=== PATIENT | male | born 1965 | race Caucasian/White ===

== ENCOUNTER 2023-08-19 20:44 | Inpatient (IN) ==
[2023-08-19 22:43] LABS: Albumin Level 2.8 gm/dl (3.4-5.0); Bilirubin,Total 5.6 mg/dl (0.2-1.0); Potassium 3.7 mmol/L (3.5-5.1)
[2023-08-19 22:49] LABS: Basophils # (auto) 0.02 K/uL (0.00-0.20); Basophils % (auto) 0.4 %; Echinocytes 1+; Eosinophils # (auto) 0.03 K/uL (0.00-0.50); Eosinophils % (auto) 0.5 %; Hematocrit (blood only) 34.6 % (42.0-52.0); Hemoglobin 11.7 g/dl (14.0-18.0); Immature Granulocytes # (auto) 0.12 K/uL (0.01-0.20); Immature Granulocytes % (auto) 2.1 %; Lymphocytes # (auto) 0.62 K/uL (1.20-3.40); Lymphocytes % (auto) 10.9 %; Mean Corpuscular Hemoglobin 28.3 pg (25.0-34.0); Mean Corpuscular Hgb Conc 33.8 g/dL (32.0-36.0); Mean Corpuscular Volume 83.8 fL (80.0-100.0); Mean Platelet Volume 10.5 fL (9.4-12.4); Monocytes # (auto) 0.24 K/uL (0.11-0.59); Monocytes % (auto) 4.2 %; Neutrophils # (auto) 4.66 K/uL (1.40-6.50); Neutrophils % (auto) 81.9 %; Platelet Count 124 K/uL (130-400); RDW Coefficient of Variation 14.6 % (11.5-14.5); Red Blood Count 4.13 M/uL (4.70-6.10); White Blood Count 5.69 K/ul (4.8-10.8)
[2023-08-19 23:04] LABS: Albumin Globulin Ratio 0.7 (0.9-2); BUN Creatinine Ratio 21.2 (10-20); Creatinine Clr Calc Pharmacy 12.1 ml/min; Est GFR (African American) 12.3 ml/min; Est GFR (Non-African American) 10.7 ml/min; Globulin 4.3 gm/dl (2.5-4.0); Total Protein 7.1 gm/dl (6.0-8.3)
--- NOTE | 2023-08-19 23:11 | Emergency Department Note ---
Impression & Plan DANI (acute kidney injury), Cirrhosis, Elevated bilirubin, Weakness ED Provider Note NAME: DEVONTE GANNON AGE: 58 SEX: M : 1965 ARRIVES VIA: Ambulance INFORMANT: Patient ED PROVIDER(S): Francisco Mckinnon DO CHIEF COMPLAINT: weakness HPI: Patient is a 58-year-old male who presents the ER for feeling weak and rundown. He notes he has not been eating much and has been trying to drink but has not felt like he can. He normally drinks about 15 beers a day. He has not been drinking any alcohol for the past 3 to 4 weeks. He denies any headache or change in vision. No chest pain or shortness of breath. No belly pain. He does admit to some swelling in his lower feet and pain in the feet. Denies any dysuria, urgency, or frequency. No other exacerbating or remitting factors. Family present at bedside notes that he is very weak and rundown. He has stopped drinking alcohol. ADDITIONAL HISTORY OBTAINED: Per HPI Chronic Medical/Social Conditions Affecting Care: Per HPI PAST MEDICAL HISTORY:See Below PAST SURGICAL HISTORY:See Below FAMILY HISTORY:See Below SOCIAL HISTORY:See Below HOME MEDICATIONS:See Below ALLERGIES:See Below VITALS:See Below PHYSICAL EXAMINATION: GENERAL: Sitting up in bed, alert, well appearing, well nourished, no distress, non-toxic EYE EXAM: Scleral icterus normal conjunctiva. PERRL and EOM's grossly intact. OROPHARYNX: no exudate, no erythema, lips, buccal mucosa, and tongue normal and mucous membranes are moist NECK: supple, no nuchal rigidity, no adenopathy, non-tender LUNGS: Clear to auscultation. Normal chest wall mechanics HEART: no murmurs, S1 normal and S2 normal ABDOMEN: abdomen soft, non-tender, normo-active bowel sounds, no masses, no rebound or guarding. UPPER EXTREMITIES: upper extremities are grossly normal. LOWER EXTREMITIES: No pitting edema. NEURO EXAM: Normal sensorium, cranial nerves II-XII grossly intact, normal speech, no gross weakness of arms, no gross weakness of legs. MEDICAL DECISION MAKING: Patient is a 58-year-old male who presents ER for above-stated complaint. IV was established blood work was obtained. External records reviewed. Labs show no significant leukocytosis and mild anemia 11.7. Platelets were slightly low at 124 likely secondary to the alcohol abuse. BMP with a creatinine 5.3 up from baseline of 1. Magnesium was elevated at 3.7. T. bili up at 5.6. AST significantly elevated at nearly 200. Troponin mildly elevated at 24. Lipase at 99. Albumin was low at 2.8. UA was without infection. Patient was given 2 L of IV fluids. Systolic blood pressures trended up from the 90s to low 100s. Do favor a large component of the DANI secondary to prerenal and dehydration. Patient was covered with cefepime to be on the safe side. He has no belly pain. CT of the head and abdomen pelvis were obtained and were unremarkable. Chest x-ray with likely linear atelectasis in the left lower lobe and subtle patchy infiltrate in the right lower lobe. Patient was covered with IV cefepime. Updated bedside and admitted to the hospital for further work-up. Patient initially declined admission but as family members are at bedside refused to take him home he was eventually agreeable to staying. External Records Reviewed: Hernia repair done in [address] Tobias Consults/Care Managements Discussions: Per [facility] Triage Nursing notes reviewed. Limited review of prior medical records performed Vital Signs: reviewed and remarkable for hypotension Differential diagnosis: Infection, dehydration, metabolic abnormality, hypo/hyperglycemia, electrolyte disturbance, anemia, hypoxia, cardiac sources, intracerebral event, toxicologic, neurologic, as well as other pathologies. ER treatment provided: See below Diagnostics interpreted by me include EKG and cardiac monitoring as listed below: -Cardiac Monitoring: An order was placed for continuous cardiac monitoring. The monitor shows a rate of 62 with sinus rhythm. -ECG: Sinus rhythm rate of 79 Normal axis No PVCs QTc 529 -Laboratory studies:Interpreted by me as stated above in MDM and shown below. Imaging studies: Xrays: As interpreted by me: Portable AP upright 1 view of the chest shows atelectasis in the left lower lobe and subtle patchy infiltrates in the right lower lobe CTs show: CT of the head and abdomen pelvis showed no acute pathology Procedures:none Critical Care: I have personally spent 31 minutes of critical care time in the direct management of this patient. This includes bedside care, interpretation of diagnostic studies, and testing, discussion with consultants, patient, and family members, and other required patient management activities. This 31 minutes is in excess of all separately billable procedures. Past Med/Surg History Medical History Anxiety Hypothyroid Low back pain ONGOING SINCE A FALL (REMOTE HX) Ulcerative colitis Surgical History History of colonoscopy History of hand surgery FINGER AMPUTATED D/T INJURY , LEFT INDEX Family History Mother Family history of diabetes mellitus Social History Smoking Status: Current every day smoker Do You Dip or Chew Tobacco: No; Hx Alcohol Use: Yes Alcohol type: beer and hard liquor Preferred Language: Kyrgyz Communication Ability: Effective Winch Operator Required: No Beliefs That Will Affect Care: None marital status: Current Living Situation: Spouse and Family Current Living Situation Comment: AND SON Feels Safe at Home: Yes Assistive Devices: Denture - Upper, Denture - Lower and Hearing Aid - Bilateral Allergies Allergies Allergy/AdvReac Type Severity Reaction Status Date / Time amoxicillin Allergy Intermediate Rash Verified 08/08/23 16:57 Home Meds Home Medications Medication Instructions Recorded Confirmed sertraline 100 mg tablet 150 mg PO QAM 12/09/20 08/19/23 balsalazide 750 mg capsule 2,250 mg PO TID 08/08/23 08/19/23 levothyroxine 75 mcg tablet 75 mcg PO DAILYBB 08/08/23 08/19/23 loperamide 2 mg capsule 2 mg PO TID PRN Diarrhea 08/08/23 08/19/23 naproxen sodium 220 mg tablet 440 mg PO BID PRN Pain 08/08/23 08/19/23 (Aleve) trazodone 100 mg tablet 100 mg PO HS 08/08/23 08/19/23 Results & Data (ED) Vital Signs Vital Signs - 24 hr 08/19/23 20:36 08/19/23 20:55 08/19/23 21:00 Temperature 35.7 C L Temperature Source Rectal Pulse Rate 64 64 65 Pulse Rate from SpO2 Sensor 64 65 Respiratory Rate 16 16 17 Respiratory Effort / Characteristics Non-Labored Respiratory Depth Normal Blood Pressure 90/60 L Blood Pressure Mean 70 Pulse Oximetry 95 94 95 Oxygen Delivery Method Room Air Sepsis Recent Fever Within 48 Hours No Sepsis New/Unexplained Change in Mental Status Yes Sepsis Action Taken by Nursing Physician Notified 08/19/23 21:04 08/19/23 21:10 08/19/23 21:11 Temperature Temperature Source Pulse Rate 64 64 Pulse Rate from SpO2 Sensor 63 Respiratory Rate 15 Respiratory Effort / Characteristics Respiratory Depth Blood Pressure Blood Pressure Mean Pulse Oximetry 94 95 Oxygen Delivery Method Room Air Sepsis Recent Fever Within 48 Hours Sepsis New/Unexplained Change in Mental Status Sepsis Action Taken by Nursing 08/19/23 21:20 08/19/23 21:30 08/19/23 21:40 Temperature Temperature Source Pulse Rate 63 64 65 Pulse Rate from SpO2 Sensor 63 64 Respiratory Rate 19 18 23 Respiratory Effort / Characteristics Respiratory Depth Blood Pressure Blood Pressure Mean Pulse Oximetry 95 94 Oxygen Delivery Method Sepsis Recent Fever Within 48 Hours Sepsis New/Unexplained Change in Mental Status Sepsis Action Taken by Nursing 08/19/23 21:46 08/19/23 21:46 08/19/23 21:50 Temperature Temperature Source Pulse Rate 64 64 Pulse Rate from SpO2 Sensor Respiratory Rate 21 22 Respiratory Effort / Characteristics Respiratory Depth Blood Pressure 98/52 L Blood Pressure Mean 59 Pulse Oximetry Oxygen Delivery Method Sepsis Recent Fever Within 48 Hours Sepsis New/Unexplained Change in Mental Status Sepsis Action Taken by Nursing 08/19/23 22:00 08/19/23 22:00 08/19/23 22:10 Temperature Temperature Source Pulse Rate 64 65 Pulse Rate from SpO2 Sensor Respiratory Rate 18 20 Respiratory Effort / Characteristics Respiratory Depth Blood Pressure 98/53 L Blood Pressure Mean 61 Pulse Oximetry Oxygen Delivery Method Sepsis Recent Fever Within 48 Hours Sepsis New/Unexplained Change in Mental Status Sepsis Action Taken by Nursing 08/19/23 22:20 08/19/23 22:30 08/19/23 22:30 Temperature Temperature Source Pulse Rate 64 65 Pulse Rate from SpO2 Sensor Respiratory Rate 26 H 26 H Respiratory Effort / Characteristics Respiratory Depth Blood Pressure 96/56 L Blood Pressure Mean 64 Pulse Oximetry Oxygen Delivery Method Sepsis Recent Fever Within 48 Hours Sepsis New/Unexplained Change in Mental Status Sepsis Action Taken by Nursing 08/19/23 22:40 08/19/23 22:50 08/19/23 23:00 Temperature Temperature Source Pulse Rate 65 65 Pulse Rate from SpO2 Sensor Respiratory Rate 26 H 17 Respiratory Effort / Characteristics Respiratory Depth Blood Pressure 95/62 L Blood Pressure Mean 67 Pulse Oximetry Oxygen Delivery Method Sepsis Recent Fever Within 48 Hours Sepsis New/Unexplained Change in Mental Status Sepsis Action Taken by Nursing 08/19/23 23:00 08/19/23 23:10 08/19/23 23:20 Temperature Temperature Source Pulse Rate 65 64 65 Pulse Rate from SpO2 Sensor 65 Respiratory Rate 22 21 17 Respiratory Effort / Characteristics Respiratory Depth Blood Pressure Blood Pressure Mean Pulse Oximetry 93 Oxygen Delivery Method Sepsis Recent Fever Within 48 Hours Sepsis New/Unexplained Change in Mental Status Sepsis Action Taken by Nursing 08/19/23 23:30 08/19/23 23:30 08/19/23 23:50 Temperature Temperature Source Pulse Rate 65 74 Pulse Rate from SpO2 Sensor 65 Respiratory Rate 22 13 Respiratory Effort / Characteristics Respiratory Depth Blood Pressure 94/55 L Blood Pressure Mean 59 Pulse Oximetry 94 Oxygen Delivery Method Sepsis Recent Fever Within 48 Hours Sepsis New/Unexplained Change in Mental Status Sepsis Action Taken by Nursing 08/20/23 00:00 08/20/23 00:10 08/20/23 00:20 Temperature Temperature Source Pulse Rate 67 71 71 Pulse Rate from SpO2 Sensor 67 71 71 Respiratory Rate 21 21 15 Respiratory Effort / Characteristics Respiratory Depth Blood Pressure Blood Pressure Mean Pulse Oximetry 93 93 92 Oxygen Delivery Method Sepsis Recent Fever Within 48 Hours Sepsis New/Unexplained Change in Mental Status Sepsis Action Taken by Nursing 08/20/23 00:30 08/20/23 00:38 08/20/23 00:40 Temperature 35.8 C L Temperature Source Rectal Pulse Rate 72 75 Pulse Rate from SpO2 Sensor 72 75 Respiratory Rate 16 25 H Respiratory Effort / Characteristics Respiratory Depth Blood Pressure Blood Pressure Mean Pulse Oximetry 92 91 Oxygen Delivery Method Sepsis Recent Fever Within 48 Hours Sepsis New/Unexplained Change in Mental Status Sepsis Action Taken by Nursing 08/20/23 00:50 08/20/23 01:00 08/20/23 01:05 Temperature Temperature Source Pulse Rate 71 74 75 Pulse Rate from SpO2 Sensor 72 74 Respiratory Rate 15 18 Respiratory Effort / Characteristics Respiratory Depth Blood Pressure Blood Pressure Mean Pulse Oximetry 91 91 Oxygen Delivery Method Sepsis Recent Fever Within 48 Hours Sepsis New/Unexplained Change in Mental Status Sepsis Action Taken by Nursing 08/20/23 01:10 08/20/23 01:20 08/20/23 01:30 Temperature Temperature Source Pulse Rate 76 75 75 Pulse Rate from SpO2 Sensor 76 75 75 Respiratory Rate 17 15 22 Respiratory Effort / Characteristics Respiratory Depth Blood Pressure Blood Pressure Mean Pulse Oximetry 91 90 91 Oxygen Delivery Method Sepsis Recent Fever Within 48 Hours Sepsis New/Unexplained Change in Mental Status Sepsis Action Taken by Nursing 08/20/23 01:40 08/20/23 01:48 08/20/23 01:48 Temperature Temperature Source Pulse Rate 73 76 Pulse Rate from SpO2 Sensor 73 73 Respiratory Rate 16 17 Respiratory Effort / Characteristics Respiratory Depth Blood Pressure 109/61 Blood Pressure Mean 71 Pulse Oximetry 93 92 Oxygen Delivery Method Sepsis Recent Fever Within 48 Hours Sepsis New/Unexplained Change in Mental Status Sepsis Action Taken by Nursing 08/20/23 01:50 08/20/23 02:00 08/20/23 02:00 Temperature Temperature Source Pulse Rate 76 76 Pulse Rate from SpO2 Sensor 76 76 Respiratory Rate 20 22 Respiratory Effort / Characteristics Respiratory Depth Blood Pressure 100/56 L Blood Pressure Mean 60 Pulse Oximetry 92 92 Oxygen Delivery Method Sepsis Recent Fever Within 48 Hours Sepsis New/Unexplained Change in Mental Status Sepsis Action Taken by Nursing 08/20/23 02:31 Temperature 36.4 C Temperature Source Rectal Pulse Rate Pulse Rate from SpO2 Sensor Respiratory Rate Respiratory Effort / Characteristics Respiratory Depth Blood Pressure Blood Pressure Mean Pulse Oximetry Oxygen Delivery Method Sepsis Recent Fever Within 48 Hours Sepsis New/Unexplained Change in Mental Status Sepsis Action Taken by Nursing Laboratory Data 08/19/23 21:15 08/19/23 21:15 Lab Results 08/19/23 08/19/23 Range/Units 21:15 21:40 WBC 5.69 (4.8-10.8) K/ul RBC 4.13 L (4.70-6.10) M/uL Hgb 11.7 L (14.0-18.0) g/dl Hct 34.6 L (42.0-52.0) % MCV 83.8 (80.0-100.0) fL MCH 28.3 (25.0-34.0) pg MCHC 33.8 (32.0-36.0) g/dL RDW Std Deviation 45.0 (36.4-46.3) fL RDW Coeff of Bo 14.6 H (11.5-14.5) % Plt Count 124 L (130-400) K/uL MPV 10.5 (9.4-12.4) fL Immature Gran % (Auto) 2.1 % Neut % (Auto) 81.9 % Lymph % (Auto) 10.9 % [place] % (Auto) 4.2 % Eos % (Auto) 0.5 % Baso % (Auto) 0.4 % Neut # (Auto) 4.66 (1.40-6.50) K/uL Lymph # (Auto) 0.62 L (1.20-3.40) K/uL [place] # (Auto) 0.24 (0.11-0.59) K/uL Eos # (Auto) 0.03 (0.00-0.50) K/uL Baso # (Auto) 0.02 (0.00-0.20) K/uL Immature Gran # (Auto) 0.12 (0.01-0.20) K/uL Echinocytes 1+ Sodium 133 L (136-145) mmol/L Potassium 3.7 (3.5-5.1) mmol/L Chloride 90 L (98-107) mmol/L Carbon Dioxide 28 (21-32) mmol/L Anion Gap 15 H (3-11) BUN 114 H (6-23) mg/dl Creatinine 5.38 H* (0.6-1.4) mg/dl Est Cr Clr Drug Dosing 12.1 ml/min Est GFR ( Amer) 12.3 ml/min Est GFR (Non-Af Amer) 10.7 ml/min BUN/Creatinine Ratio 21.2 H (10-20) Glucose 99 (70-99(Fasting)) mg/dl Calcium 8.0 L (8.6-10.3) mg/dl Magnesium 3.7 H (1.7-2.4) mg/dl Total Bilirubin 5.6 H (0.2-1.0) mg/dl AST 186 H (13-39) U/L ALT 26 (7-52) U/L Alkaline Phosphatase 303 H (34-104) U/L Troponin I High Sens 24.8 H (0-20) pg/ml Total Protein 7.1 (6.0-8.3) gm/dl Albumin 2.8 L (3.4-5.0) gm/dl Globulin 4.3 H (2.5-4.0) gm/dl Albumin/Globulin Ratio 0.7 L (0.9-2) Lipase 99 H (11-82) U/L Urine Color Dark Yellow Urine Appearance Cloudy A (Clear) Urine pH 5.0 (4.5-7.5) Ur Specific Saxis 1.017 (1.000-1.030) Urine Protein Trace H (Negative) Urine Glucose (UA) Negative (Negative) Urine Ketones Negative (Negative) Urine Blood Negative (Negative) Urine Nitrite Positive A (Negative) Urine Bilirubin 1+ H (Negative) Urine Urobilinogen Negative (Negative) Ur Leukocyte Esterase Negative (Negative) Urine WBC (Auto) 1-5 (0-5) /hpf Urine RBC (Auto) 0-4 (0-4) /hpf U Hyaline Cast (Auto) 1-5 (0-5) /lpf U Epithel Cells (Auto) 0-5 (0-5) /lpf Urine Bacteria (Auto) 1+ H (Negative) Urine Mucus Present A (None Prsent) Urine Yeast Not Reportable Administered Medications Sodium Chloride (Nss) 1,000 mls @ 999 mls/hr IV .Q1H1M ONE Stop: 08/20/23 03:16 Last Admin: 08/20/23 02:37 Dose: 999 mls/hr Documented By: BRYCE Discontinued Medications Sodium Chloride (Nss) 1,000 mls @ 999 mls/hr IV .Q1H1M AMRITA Stop: 08/20/23 01:15 Last Infusion: 08/20/23 02:11 Dose: Infused Documented By: Admin: 08/20/23 00:38 Dose: 999 mls/hr Documented By: Infusion: 08/20/23 00:38 Dose: Infused Documented By: Admin: 08/19/23 23:41 Dose: 999 mls/hr Documented By: BRYCE Thiamine HCl 100 mg/ Syringe 10 mls @ 2 mls/min IV NOW STA Stop: 08/19/23 23:16 Last Admin: 08/20/23 00:05 Dose: 2 mls/min Documented By: BRYCE Folic Acid 1 mg/ Syringe 10 mls @ 5 mls/min IV NOW STA Stop: 08/19/23 23:13 Last Admin: 08/20/23 00:04 Dose: 5 mls/min Documented By: BRYCE Cefepime HCl (Maxipime) 2,000 mg in 20 mls @ 5 mls/min IV NOW STA; Protocol Stop: 08/20/23 02:21 Last Admin: 08/20/23 02:47 Dose: 5 mls/min Documented By: BRYCE Imaging Data Radiologist's Impression: Abdomen/Pelvis CT 08/19/23 23:08 Exam(s): CT ABDOMEN + PELVIS Without Contrast EXAM: CT Abdomen and Pelvis Without Intravenous Contrast CLINICAL HISTORY: Reason for exam: weak. TECHNIQUE: Axial computed tomography images of the abdomen and pelvis without intravenous contrast. Automated exposure control was utilized for the study. A dose lowering technique was utilized adhering to the principles of ALARA. COMPARISON: No relevant prior studies available. FINDINGS: Lung bases: Atelectasis/scarring at the lung bases. ABDOMEN: Liver: Core liver hepatic cirrhosis. Abdominal ascites. Splenomegaly measuring up to 14.7 cm. Gallbladder and bile ducts: Unremarkable. No calcified stones. No ductal dilation. Pancreas: Unremarkable. No ductal dilation. Spleen: See above. Adrenals: Unremarkable. No mass. Kidneys and ureters: Unremarkable. No hydronephrosis or nephrolithiasis. Stomach and bowel: Diverticulosis, without acute diverticulitis. No bowel obstruction. No free air. PELVIS: Appendix: No findings to suggest acute appendicitis. Bladder: Unremarkable. No stones. Reproductive: Unremarkable as visualized. ABDOMEN and PELVIS: Intraperitoneal space: See above. Bones/joints: Degenerative changes of the spine. No acute fracture. No dislocation. Soft tissues: Unremarkable. Vasculature: Atherosclerotic changes of the aorta. No abdominal aortic aneurysm. Lymph nodes: Unremarkable. No enlarged lymph nodes. IMPRESSION: 1. No hydronephrosis or nephrolithiasis. 2. Core liver hepatic cirrhosis. Abdominal ascites. Splenomegaly measuring up to 14.7 cm. 3. Diverticulosis, without acute diverticulitis. No bowel obstruction. No free air. Electronically signed by: Cruz Mueller MD 08/20/23 02:[address] 08/19/23 23:12 Exam(s): CT HEAD Without Contrast EXAM: CT Head Without Intravenous Contrast CLINICAL HISTORY: Reason for exam: weak. TECHNIQUE: Axial computed tomography images of the head/brain without intravenous contrast. Automated exposure control was utilized for the study. A dose lowering technique was utilized adhering to the principles of ALARA. COMPARISON: No relevant prior studies available. FINDINGS: No acute intracranial hemorrhage. No midline shift or mass effect. The territorial meraz-white matter differentiation is maintained throughout. Age-related cerebral volume loss. Periventricular and subcortical white matter hypoattenuation, consistent with chronic microangiopathy. The visualized orbits appear grossly unremarkable. The calvarium is intact. The visualized paranasal sinuses and mastoid air cells are grossly clear. IMPRESSION: No acute intracranial hemorrhage, midline shift, or mass effect. Electronically signed by: Cruz Mueller MD 08/20/23 00:57 AM Discharge Plan Visit Data Chief Complaint: Altered Mental Status ED Provider: Francisco Mckinnon Discharge Problem: DANI (acute kidney injury), Cirrhosis, Elevated bilirubin, Weakness Forms Stand Alone Forms: [facility] Prescriptions Prescriptions: No Action sertraline 100 mg tablet 150 mg PO QAM loperamide 2 mg capsule 2 mg PO TID PRN (Reason: Diarrhea) levothyroxine 75 mcg tablet 75 mcg PO DAILYBB trazodone 100 mg tablet 100 mg PO HS naproxen sodium [Aleve] 220 mg Tablet 440 mg PO BID PRN (Reason: Pain) balsalazide 750 mg capsule 2,250 mg PO TID Referrals Referrals: Bernard Rodriguez MD [Primary Care Provider] - Discharge Problem: Cirrhosis Qualifiers: Hepatic cirrhosis type: unspecified hepatic cirrhosis Ascites presence: u nspecified Qualified Code(s): K74.60 - Unspecified cirrhosis of liver
[2023-08-19] MEDS ORDERED: THIAMINE HCL 100 MG in SYRINGE 9 ML IV STA (23:12)
[2023-08-19] MEDS ORDERED: FOLIC ACID 1 MG in SYRINGE 9.8 ML IV STA (23:12)
[2023-08-19 23:24] LABS: Appearance Urine Cloudy (Clear); Blood Urine Negative (Negative); Color Urine Dark Yellow; Epithelial Cell Urine Auto 0-5 /lpf (0-5); Glucose Urine UA Negative (Negative); Ketones Urine Negative (Negative); Leukocyte Esterase Urine Negative (Negative); Nitrite Urine Positive (Negative); Protein Urine Trace (Negative); Specific Gravity Urine 1.017 (1.000-1.030); Urobilinogen Urine Negative (Negative)
[2023-08-19 23:30] LABS: Bilirubin Urine 1+ (Negative)
[2023-08-19] MEDS: SODIUM CHLORIDE 0.9% 1,000 ML IV SCH (23:41)
[2023-08-19 23:53] LABS: Bacteria Urine Automated 1+ (Negative); Mucus Urine Present (None Prsent); RBC Urine Automated 0-4 /hpf (0-4)
[2023-08-20 00:23] LABS: Magnesium 3.7 mg/dl (1.7-2.4)
[2023-08-20] MEDS: SODIUM CHLORIDE 0.9% 1,000 ML IV SCH (00:38)
[2023-08-20 00:42] LABS: Troponin I High Sensitivity 24.8 pg/ml (0-20)
--- NOTE | 2023-08-20 00:58 | CT Scan Report ---
Exam(s): CT HEAD Without Contrast EXAM: CT Head Without Intravenous Contrast CLINICAL HISTORY: Reason for exam: weak. TECHNIQUE: Axial computed tomography images of the head/brain without intravenous contrast. Automated exposure control was utilized for the study. A dose lowering technique was utilized adhering to the principles of ALARA. COMPARISON: No relevant prior studies available. FINDINGS: No acute intracranial hemorrhage. No midline shift or mass effect. The territorial meraz-white matter differentiation is maintained throughout. Age-related cerebral volume loss. Periventricular and subcortical white matter hypoattenuation, consistent with chronic microangiopathy. The visualized orbits appear grossly unremarkable. The calvarium is intact. The visualized paranasal sinuses and mastoid air cells are grossly clear. IMPRESSION: No acute intracranial hemorrhage, midline shift, or mass effect. Electronically signed by: Cruz Mueller MD 08/20/23 00:57 AM
--- NOTE | 2023-08-20 02:01 | CT Scan Report ---
Exam(s): CT ABDOMEN + PELVIS Without Contrast EXAM: CT Abdomen and Pelvis Without Intravenous Contrast CLINICAL HISTORY: Reason for exam: weak. TECHNIQUE: Axial computed tomography images of the abdomen and pelvis without intravenous contrast. Automated exposure control was utilized for the study. A dose lowering technique was utilized adhering to the principles of ALARA. COMPARISON: No relevant prior studies available. FINDINGS: Lung bases: Atelectasis/scarring at the lung bases. ABDOMEN: Liver: Core liver hepatic cirrhosis. Abdominal ascites. Splenomegaly measuring up to 14.7 cm. Gallbladder and bile ducts: Unremarkable. No calcified stones. No ductal dilation. Pancreas: Unremarkable. No ductal dilation. Spleen: See above. Adrenals: Unremarkable. No mass. Kidneys and ureters: Unremarkable. No hydronephrosis or nephrolithiasis. Stomach and bowel: Diverticulosis, without acute diverticulitis. No bowel obstruction. No free air. PELVIS: Appendix: No findings to suggest acute appendicitis. Bladder: Unremarkable. No stones. Reproductive: Unremarkable as visualized. ABDOMEN and PELVIS: Intraperitoneal space: See above. Bones/joints: Degenerative changes of the spine. No acute fracture. No dislocation. Soft tissues: Unremarkable. Vasculature: Atherosclerotic changes of the aorta. No abdominal aortic aneurysm. Lymph nodes: Unremarkable. No enlarged lymph nodes. IMPRESSION: 1. No hydronephrosis or nephrolithiasis. 2. Core liver hepatic cirrhosis. Abdominal ascites. Splenomegaly measuring up to 14.7 cm. 3. Diverticulosis, without acute diverticulitis. No bowel obstruction. No free air. Electronically signed by: Cruz Mueller MD 08/20/23 02:00 AM
[2023-08-20] MEDS ORDERED: SODIUM CHLORIDE 0.9% 1,000 ML IV ONE (02:16)
[2023-08-20] MEDS ORDERED: CEFEPIME 2,000 MG/20 ML VIAL IV STA (02:18)
--- NOTE | 2023-08-20 05:39 | History & Physical Report ---
Date of Service August 20, 2023 Assessment & Plan (1) DANI (acute kidney injury): Plan: 58-year-old male with past med significant for ulcerative pancolitis, Dupuytren's contracture of hand, depression, alcohol abuse presents with weakness, poor appetite and found to DANI and elevated LFTs. DANI Presented with creatinine 5.3 Creatinine was 1.0 on August 08, [address] abdomen pelvis Bladder scan Gentle fluids Repeat labs Consult nephrology Elevated LFTs Total bilirubin 5.6 AST 186, ALT 26, alkaline phos was 303 Alcoholism Most likely alcoholic hepatitis We will follow CT abdomen pelvis GI consulted Follow repeat labs Alcoholism Patient states he drinks 10-12 beers daily but has not drank in the last [address] on alcohol withdrawal protocol with gabapentin and IV Ativan as needed IV thiamine IV folic acid Closely monitor for withdrawal symptoms Mild elevation troponin Mostly from renal dysfunction Follow serial enzymes Possible UTI Rocephin Follow cultures History of ulcerative colitis Continue home med Hypothyroidism On Synthyroid Follow-up TSH Depression Zoloft and trazodone We will hold trazodone and Zoloft for now for QT prolongation Prolonged QTc Avoid QT prolonging drugs Follow repeat EKG Mild anemia and mild thrombocytopenia possible from liver disease and alcoholism We will check stool for Hemoccult We will follow labs. DVT prophylaxis Heparin subcu Monitor platelets Disposition Telemetry floor Full code History of Present Illness Chief Complaint: Weakness and found to have DANI and elevated LFTs Primary Care Provider: Bernard Rodriguez MD 58-year-old male with past med significant for ulcerative pancolitis, Dupuytren's contracture of hand, depression, alcohol abuse presents with weakness, poor appetite and found to DANI and elevated LFTs. Patient states he used to drink alcohol 10-12 beers daily but he did not drink for 10 days. Says he lives with his family. Denies any headache. Vision is okay. No headaches. No runny nose. Has some sore throat. Has mild cough. Denies fevers. No chest pain. No shortness of breath. No nausea. Has mild abdominal discomfort. Normal bowel and bladder movements. States is ambulating okay at home. Hemodynamics are stable. Past medical history. As mentioned above Past surgical history. Colonoscopy. Laparoscopic inguinal hernia repair Social history. . Quit smoking 20 years ago. Used to smoke heavily 2 packs a day. Alcohol drinks 10-12 beers daily but states did not drink in last 10 days. No drug use. Family history. Son has ulcerative colitis Allergies Allergy/AdvReac Type Severity Reaction Status Date / Time amoxicillin Allergy Intermediate Rash Verified 08/08/23 16:57 Home Medications Medication Instructions Recorded Confirmed Type sertraline 100 mg tablet 150 mg PO QAM 12/09/20 08/19/23 History balsalazide 750 mg capsule 2,250 mg PO TID 08/08/23 08/19/23 History levothyroxine 75 mcg tablet 75 mcg PO DAILYBB 08/08/23 08/19/23 History loperamide 2 mg capsule 2 mg PO TID PRN Diarrhea 08/08/23 08/19/23 History naproxen sodium 220 mg tablet 440 mg PO BID PRN Pain 08/08/23 08/19/23 History (Aleve) trazodone 100 mg tablet 100 mg PO HS 08/08/23 08/19/23 History Past Med/Surg History Medical History Anxiety Hypothyroid Low back pain ONGOING SINCE A FALL (REMOTE HX) Ulcerative colitis Surgical History History of colonoscopy History of hand surgery FINGER AMPUTATED D/T INJURY , LEFT INDEX Family History Mother Family history of diabetes mellitus Social History Smoking Status: Current every day smoker Do You Dip or Chew Tobacco: No; Hx Alcohol Use: Yes Alcohol type: beer and hard liquor Preferred Language: Martiniquais Communication Ability: Effective Freight Team Associate Required: No Beliefs That Will Affect Care: None marital status: Current Living Situation: Spouse and Family Current Living Situation Comment: AND SON Feels Safe at Home: Yes Assistive Devices: Denture - Upper, Denture - Lower and Hearing Aid - Bilateral Review of Systems Review of Systems: All systems reviewed & are unremarkable except as noted in HPI & below Physical Exam Physical Exam: General- Not in distress. Head- atraumatic Eyes- PERRL. ENT- oropharynx clear Neck- supple, no JVD. Lungs- clear to auscultation no wheezing or crackles. Heart- regular rhythm; no murmur, no gallop. Abdomen- normal bowel sounds, soft, nontender, mild distension. Extremities- no pretibial edema, no erythema seen. Neuro- alert, oriented x 3; PERRL, no facial palsy; no dysarthria; moves extremities. Skin- warm & dry Results & Data Results & Data Vital Signs (Past 12 Hours) Vital Signs Temp Pulse Pulse Resp BP Pulse Ox O2 Del Method 08/20/23 04:00 72 17 91 Room Air 08/20/23 02:31 36.4 C 08/20/23 02:00 76 22 92 08/20/23 02:00 100/56 L 08/20/23 01:50 76 20 92 08/20/23 01:48 76 17 92 08/20/23 01:48 109/61 08/20/23 01:40 73 16 93 08/20/23 01:30 75 22 91 08/20/23 01:20 75 15 90 08/20/23 01:10 76 17 91 08/20/23 01:05 75 08/20/23 01:00 74 18 91 08/20/23 00:50 71 15 91 08/20/23 00:40 75 25 H 91 08/20/23 00:38 35.8 C L 08/20/23 00:30 72 16 92 08/20/23 00:20 71 15 92 08/20/23 00:10 71 21 93 08/20/23 00:00 67 21 93 08/19/23 23:50 74 13 08/19/23 23:30 65 22 94 08/19/23 23:30 94/55 L 08/19/23 23:20 65 17 93 08/19/23 23:10 64 21 08/19/23 23:00 65 22 08/19/23 23:00 95/62 L 08/19/23 22:50 65 17 08/19/23 22:40 65 26 H 08/19/23 22:30 65 26 H 08/19/23 22:30 96/56 L 08/19/23 22:20 64 26 H 08/19/23 22:10 65 20 08/19/23 22:00 64 18 08/19/23 22:00 98/53 L 08/19/23 21:50 64 22 11/14/23 21:46 98/52 L 08/19/23 21:46 64 21 08/19/23 21:40 65 23 08/19/23 21:30 64 18 94 08/19/23 21:20 63 19 95 08/19/23 21:11 95 Room Air 08/19/23 21:10 64 15 94 08/19/23 21:04 64 08/19/23 21:00 65 17 95 08/19/23 20:55 64 16 94 08/19/23 20:36 35.7 C L 64 16 90/60 L 95 Room Air Diagnostic Findings Laboratory Results WBC 5.69 K/ul (4.8-10.8) 08/19/23 21:15 RBC 4.13 M/uL (4.70-6.10) L 08/19/23 21:15 Hgb 11.7 g/dl (14.0-18.0) L 08/19/23 21:15 Hct 34.6 % (42.0-52.0) L 08/19/23 21:15 MCV 83.8 fL (80.0-100.0) 08/19/23 21:15 MCH 28.3 pg (25.0-34.0) 08/19/23 21:15 MCHC 33.8 g/dL (32.0-36.0) 08/19/23 21:15 RDW Std Deviation 45.0 fL (36.4-46.3) 08/19/23 21:15 RDW Coeff of Bo 14.6 % (11.5-14.5) H 08/19/23 21:15 Plt Count 124 K/uL (130-400) L 08/19/23 21:15 MPV 10.5 fL (9.4-12.4) 08/19/23 21:15 Immature Gran % (Auto) 2.1 % 08/19/23 21:15 Neut % (Auto) 81.9 % 08/19/23 21:15 Lymph % (Auto) 10.9 % 08/19/23 21:15 [place] % (Auto) 4.2 % 08/19/23 21:15 Eos % (Auto) 0.5 % 08/19/23 21:15 Baso % (Auto) 0.4 % 08/19/23 21:15 Neut # (Auto) 4.66 K/uL (1.40-6.50) 08/19/23 21:15 Lymph # (Auto) 0.62 K/uL (1.20-3.40) L 08/19/23 21:15 [place] # (Auto) 0.24 K/uL (0.11-0.59) 08/19/23 21:15 Eos # (Auto) 0.03 K/uL (0.00-0.50) 08/19/23 21:15 Baso # (Auto) 0.02 K/uL (0.00-0.20) 08/19/23 21:15 Immature Gran # (Auto) 0.12 K/uL (0.01-0.20) 08/19/23 21:15 Echinocytes 1+ 08/19/23 21:15 Sodium 133 mmol/L (136-145) L 08/19/23 21:15 Potassium 3.7 mmol/L (3.5-5.1) 08/19/23 21:15 Chloride 90 mmol/L (98-107) L 08/19/23 21:15 Carbon Dioxide 28 mmol/L (21-32) 08/19/23 21:15 Anion Gap 15 (3-11) H 08/19/23 21:15 BUN 114 mg/dl (6-23) H 08/19/23 21:15 Creatinine 5.38 mg/dl (0.6-1.4) H* 08/19/23 21:15 Est Cr Clr Drug Dosing 12.1 ml/min 08/19/23 21:15 Est GFR ( Amer) 12.3 ml/min 08/19/23 21:15 Est GFR (Non-Af Amer) 10.7 ml/min 08/19/23 21:15 BUN/Creatinine Ratio 21.2 (10-20) H 08/19/23 21:15 Glucose 99 mg/dl (70-99(Fasting)) 08/19/23 21:15 Calcium 8.0 mg/dl (8.6-10.3) L 08/19/23 21:15 Magnesium 3.7 mg/dl (1.7-2.4) H 08/19/23 21:15 Total Bilirubin 5.6 mg/dl (0.2-1.0) H 08/19/23 21:15 AST 186 U/L (13-39) H 08/19/23 21:15 ALT 26 U/L (7-52) 08/19/23 21:15 Alkaline Phosphatase 303 U/L (34-104) H 08/19/23 21:15 Troponin I High Sens 24.8 pg/ml (0-20) H 08/19/23 21:15 Total Protein 7.1 gm/dl (6.0-8.3) 08/19/23 21:15 Albumin 2.8 gm/dl (3.4-5.0) L 08/19/23 21:15 Globulin 4.3 gm/dl (2.5-4.0) H 08/19/23 21:15 Albumin/Globulin Ratio 0.7 (0.9-2) L 08/19/23 21:15 Lipase 99 U/L (11-82) H 08/19/23 21:15 Urine Color Dark Yellow 08/19/23 21:40 Urine Appearance Cloudy (Clear) A 08/19/23 21:40 Urine pH 5.0 (4.5-7.5) 08/19/23 21:40 Ur Specific [place] 1.017 (1.000-1.030) 08/19/23 21:40 Urine Protein Trace (Negative) H 08/19/23 21:40 Urine Glucose (UA) Negative (Negative) 08/19/23 21:40 Urine Ketones Negative (Negative) 08/19/23 21:40 Urine Blood Negative (Negative) 08/19/23 21:40 Urine Nitrite Positive (Negative) A 08/19/23 21:40 Urine Bilirubin 1+ (Negative) H 08/19/23 21:40 Urine Urobilinogen Negative (Negative) 08/19/23 21:40 Ur Leukocyte Esterase Negative (Negative) 08/19/23 21:40 Urine WBC (Auto) 1-5 /hpf (0-5) 08/19/23 21:40 Urine RBC (Auto) 0-4 /hpf (0-4) 08/19/23 21:40 U Hyaline Cast (Auto) 1-5 /lpf (0-5) 08/19/23 21:40 U Epithel Cells (Auto) 0-5 /lpf (0-5) 08/19/23 21:40 Urine Bacteria (Auto) 1+ (Negative) H 08/19/23 21:40 Urine Mucus Present (None Prsent) A 08/19/23 21:40 Urine Yeast Not Reportable 08/19/23 21:40 Impressions Abdomen/Pelvis CT 08/19/23 23:08 Exam(s): CT ABDOMEN + PELVIS Without Contrast EXAM: CT Abdomen and Pelvis Without Intravenous Contrast CLINICAL HISTORY: Reason for exam: weak. TECHNIQUE: Axial computed tomography images of the abdomen and pelvis without intravenous contrast. Automated exposure control was utilized for the study. A dose lowering technique was utilized adhering to the principles of ALARA. COMPARISON: No relevant prior studies available. FINDINGS: Lung bases: Atelectasis/scarring at the lung bases. ABDOMEN: Liver: Core liver hepatic cirrhosis. Abdominal ascites. Splenomegaly measuring up to 14.7 cm. Gallbladder and bile ducts: Unremarkable. No calcified stones. No ductal dilation. Pancreas: Unremarkable. No ductal dilation. Spleen: See above. Adrenals: Unremarkable. No mass. Kidneys and ureters: Unremarkable. No hydronephrosis or nephrolithiasis. Stomach and bowel: Diverticulosis, without acute diverticulitis. No bowel obstruction. No free air. PELVIS: Appendix: No findings to suggest acute appendicitis. Bladder: Unremarkable. No stones. Reproductive: Unremarkable as visualized. ABDOMEN and PELVIS: Intraperitoneal space: See above. Bones/joints: Degenerative changes of the spine. No acute fracture. No dislocation. Soft tissues: Unremarkable. Vasculature: Atherosclerotic changes of the aorta. No abdominal aortic aneurysm. Lymph nodes: Unremarkable. No enlarged lymph nodes. IMPRESSION: 1. No hydronephrosis or nephrolithiasis. 2. Core liver hepatic cirrhosis. Abdominal ascites. Splenomegaly measuring up to 14.7 cm. 3. Diverticulosis, without acute diverticulitis. No bowel obstruction. No free air. Electronically signed by: Cruz Mueller MD 08/20/23 02:[address] 08/19/23 23:12 Exam(s): CT HEAD Without Contrast EXAM: CT Head Without Intravenous Contrast CLINICAL HISTORY: Reason for exam: weak. TECHNIQUE: Axial computed tomography images of the head/brain without intravenous contrast. Automated exposure control was utilized for the study. A dose lowering technique was utilized adhering to the principles of ALARA. COMPARISON: No relevant prior studies available. FINDINGS: No acute intracranial hemorrhage. No midline shift or mass effect. The territorial meraz-white matter differentiation is maintained throughout. Age-related cerebral volume loss. Periventricular and subcortical white matter hypoattenuation, consistent with chronic microangiopathy. The visualized orbits appear grossly unremarkable. The calvarium is intact. The visualized paranasal sinuses and mastoid air cells are grossly clear. IMPRESSION: No acute intracranial hemorrhage, midline shift, or mass effect. Electronically signed by: Cruz Mueller MD 08/20/23 00:57 AM ECG Additional Comments: Normal sinus rhythm rate of 79. Nonspecific T wave abnormality. Prolonged QTc of 525 Code Status & VTE Plan VTE Prophylaxis Plan VTE Prophylaxis will be ordered: Yes
--- NOTE | 2023-08-20 06:56 | XRay Report ---
XR chest 1V portable HISTORY: 58 years-old Male weak acute weakness COMPARISON: 08/08/2023 TECHNIQUE: AP view of the chest FINDINGS: Cardiac silhouette is enlarged. Mild subsegmental bibasilar densities. No pneumothorax. Trace pleural effusions. Degenerative changes of the shoulders and spine. IMPRESSION: 1. Mild linear bibasilar densities favor atelectasis. 2. Trace pleural effusions. ACT 112: Negative or not required by law. The above report was generated using voice recognition software. It may contain grammatical, syntax o r spelling errors. Electronically signed by: Tito Gaona M.D. 08/20/2023 6:55 AM
--- NOTE | 2023-08-20 08:25 | Electrocardiogram Report ---
Test Reason : Blood Pressure : / mmHG Vent. Rate : 079 BPM Atrial Rate : 079 BPM P-R Int : 116 ms QRS Dur : 096 ms QT Int : 458 ms P-R-T Axes : 045 039 002 degrees QTc Int : 525 ms Normal sinus rhythm Diffuse Nonspecific T wave abnormality Prolonged QT Abnormal ECG When compared with ECG of 19-AUG-2023 21:10, No significant change was found Confirmed by Greg Domingo ([id number]) on 08/20/2023 8:24:54 AM Referred By: REFERRED SELF Confirmed By:Greg Domingo
[2023-08-20] MEDS ORDERED: LORazepam 3 MG in SYRINGE 1.5 ML IV PRN (08:33)
[2023-08-20] MEDS ORDERED: LORazepam 1 MG in SYRINGE 0.5 ML IV PRN (08:33)
[2023-08-20] MEDS ORDERED: SODIUM CHLORIDE 0.9% 1,000 ML IV SCH (08:33)
[2023-08-20] MEDS ORDERED: LORazepam 2 MG in SYRINGE 1 ML IV PRN (08:33)
[2023-08-20] MEDS ORDERED: NITROGLYCERIN SL 0.4 MG/TAB TAB SL PRN (08:33)
[2023-08-20] MEDS ORDERED: GABAPENTIN 600MG ALCOHOL WITHDRAWAL LOAD PO STA (08:33)
[2023-08-20] MEDS ORDERED: Ativan IV Alcohol Withdrawal--Active Protocol IV PRN (08:33)
--- NOTE | 2023-08-20 09:09 | Gastrointestinal Consultation ---
Date of Consultation August 20, 2023 Assessment & Plan (1) Elevated bilirubin: Plan 58 year old male with UC on PO mesalamine, ETOH abuse and others below admitted with DANI, elevated LFTs, imaging with cirrhosis. - Elevated LFTs - ETOH cessation discussed - CT shows cirrhosis - Check coagulation studies - Check liver serology - Calculate DF when able - Calculate MELD when able - No ETOH - No NSAIDs - Less than 2G tylenol if using - Low NA diet, less than 2G sodium - Diagnostic paracentesis pending MELTING SUPERVISOR improvement - OP EGD - ETOH withdrawal protocol - DANI - Appreciate nephrology evaluation - Recommend urine studies - Rule out HRS - Ulcerative colitis - Continue home medications - If he has diarrhea, submit stool culture and c.diff - Continue follow up with his established GI team Thank you for allowing us to participate in the care of this patient. Please call with any acute changes, questions or concerns. Please see addendum below with additional recommendation from my supervising physician. Supervising Physician Co-Signing Physician Notes I saw and evaluated the patient today for a history liver disease. Of note the patient is admitted bilirubin and serum creatinine patient is not actively drinking alcohol despite having seen in the past by our service. Impression: The patient is a pleasant discriminant function index is 23, therefore we will hold on initiation of steroid therapy. Recomendations Low sodium diet daily labs await nephrology input alcohol rehabilitation History of Present Illness Reason for Consultation: elevated LFTs Requesting Physician: Nevaeh Attending Physician: Volodymyr Herring MD History of Present Illness 58 year old male with history of ulcerative pancolitis on balsalazide, Dupuytren's contracture of hand, depression, alcohol abuse admitted through the ED for weakness and DANI - GI asked to evaluate for elevated LFTs. Pt was seen and evaluated, chart reviewed. He is awake, alert and oriented x 3. He is however, a reluctant historian. Suggests that he has been feeling tired, weak for a few days. Denies any specific GI symptoms however. He notes a history of UC and suggests that it is normal for his stools to be loose/soft but is unable to identify how frequent his stoosl are. Denies black or bloody stools. Denies abd pain. Is hungry. No nausea, vomiting. No GERD, dysphagia. No fever, chills,CP, SOB. He does report ETOH use but is unable to quantify how often he drinks. He suggests his last use was about 1 week ago and he will have 4-5 beers and maybe a drink with liquor before bedtime. Denies other drugs or illicit substances to me. WBC 5, HGB 11, HCT 34, PLT 124. Coagulation studies not obtained. BUN 114, MELTING SUPERVISOR 5.38. Tbili 5.6, AST 186. ALT 26. ALKP 303. Lipase 99. CTAP 2022: No hydronephrosis or nephrolithiasis. Core liver hepatic cirrhosis. Abdominal ascites. Splenomegaly measuring up to 14.7 cm. Diverticulosis, without acute diverticulitis. No bowel obstruction. No free air. Colon 2019: ileum normal, mild erythema mucosa in entire colon, otherwise wnl. Allergies Allergy/AdvReac Type Severity Reaction Status Date / Time amoxicillin Allergy Intermediate Rash Verified 08/08/23 16:57 Home Medications Medication Instructions Recorded Confirmed Type sertraline 100 mg tablet 150 mg PO QAM 12/09/20 08/19/23 History balsalazide 750 mg capsule 2,250 mg PO TID 08/08/23 08/19/23 History levothyroxine 75 mcg tablet 75 mcg PO DAILYBB 08/08/23 08/19/23 History loperamide 2 mg capsule 2 mg PO TID PRN Diarrhea 08/08/23 08/19/23 History naproxen sodium 220 mg tablet 440 mg PO BID PRN Pain 08/08/23 08/19/23 History (Aleve) trazodone 100 mg tablet 100 mg PO HS 08/08/23 08/19/23 History Patient History Medical History Anxiety Hypothyroid Low back pain ONGOING SINCE A FALL (REMOTE HX) Ulcerative colitis Surgical History History of colonoscopy History of hand surgery FINGER AMPUTATED D/T INJURY , LEFT INDEX Family History Mother Family history of diabetes mellitus Social History Smoking Status: Former smoker Tobacco Type: Cigarettes Smoking End Date: over 20 years ago; Do You Dip or Chew Tobacco: No; Hx Alcohol Use: Yes Alcohol type: beer and hard liquor Hx Substance Use: No Preferred Language: Guatemalan Communication Ability: Effective Emergency Management System Director Required: No Beliefs That Will Affect Care: None marital status: Current Living Situation: Spouse Current Living Situation Comment: AND SON Other Information That Helps Us Care for You: No Feels Safe at Home: Yes Safety Concerns: Feels Safe At This Time Assistive Devices: Denture - Upper, Denture - Lower, Glasses and Hearing Aid - Bilateral Review of Systems Review of Systems: All systems reviewed & are unremarkable except as noted in HPI & below Physical Exam Constitutional: WD/WN, vitals as above Neck: trachea midline Respiratory: normal respiratory effort, lungs clear to auscultation Cardiovascular: Rate/Rhythm: regular rate and regular rhythm Gastrointestinal (Abdomen): normal bowel sounds, soft, nontender, no hepatosplenomegaly Skin: no rashes, warm and dry Results & Data Vital Signs (Past 12 Hours) Vital Signs Temp Pulse Pulse Resp BP BP Pulse Ox 08/20/23 08:18 36.4 C L 68 18 96/44 L 96 08/20/23 07:37 36.8 C 68 17 104/59 L 97 08/20/23 06:00 68 17 97 08/20/23 04:00 72 17 91 08/20/23 02:31 36.4 C 08/20/23 02:00 76 22 92 08/20/23 02:00 100/56 L 08/20/23 01:50 76 20 92 08/20/23 01:48 76 17 92 08/20/23 01:48 109/61 08/20/23 01:40 73 16 93 08/20/23 01:30 75 22 91 08/20/23 01:20 75 15 90 08/20/23 01:10 76 17 91 08/20/23 01:05 75 08/20/23 01:00 74 18 91 08/20/23 00:50 71 15 91 08/20/23 00:40 75 25 H 91 08/20/23 00:38 35.8 C L 08/20/23 00:30 72 16 92 08/20/23 00:20 71 15 92 08/20/23 00:10 71 21 93 08/20/23 00:00 67 21 93 08/19/23 23:50 74 13 08/19/23 23:30 65 22 94 08/19/23 23:30 94/55 L 08/19/23 23:20 65 17 93 08/19/23 23:10 64 21 08/19/23 23:00 65 22 08/19/23 23:00 95/62 L 08/19/23 22:50 65 17 08/19/23 22:40 65 26 H 08/19/23 22:30 65 26 H 08/19/23 22:30 96/56 L 08/19/23 22:20 64 26 H 08/19/23 22:10 65 20 08/19/23 22:00 64 18 08/19/23 22:00 98/53 L 08/19/23 21:50 64 22 08/19/23 21:46 98/52 L 08/19/23 21:46 64 21 08/19/23 21:40 65 23 08/19/23 21:30 64 18 94 08/19/23 21:20 63 19 95 08/19/23 21:11 95 08/19/23 21:10 64 15 94 08/19/23 21:04 64 O2 Del Method 08/20/23 08:18 Room Air 08/20/23 07:37 Room Air 08/20/23 06:00 Room Air 08/20/23 04:00 Room Air 08/20/23 02:31 08/20/23 02:00 08/20/23 02:00 08/20/23 01:50 08/20/23 01:48 08/20/23 01:48 08/20/23 01:40 08/20/23 01:30 08/20/23 01:20 08/20/23 01:10 08/20/23 01:05 08/20/23 01:00 08/20/23 00:50 08/20/23 00:40 08/20/23 00:38 08/20/23 00:30 08/20/23 00:20 08/20/23 00:10 08/20/23 00:00 08/19/23 23:50 08/19/23 23:30 08/19/23 23:30 08/19/23 23:20 08/19/23 23:10 08/19/23 23:00 08/19/23 23:00 08/19/23 22:50 08/19/23 22:40 08/19/23 22:30 08/19/23 22:30 08/19/23 22:20 08/19/23 22:10 08/19/23 22:00 08/19/23 22:00 08/19/23 21:50 08/19/23 21:46 08/19/23 21:46 08/19/23 21:40 08/19/23 21:30 08/19/23 21:20 08/19/23 21:11 Room Air 08/19/23 21:10 08/19/23 21:04 Laboratory Results 08/19/23 08/19/23 Range/Units 21:40 21:15 WBC 5.69 (4.8-10.8) K/ul RBC 4.13 L (4.70-6.10) M/uL Hgb 11.7 L (14.0-18.0) g/dl Hct 34.6 L (42.0-52.0) % MCV 83.8 (80.0-100.0) fL MCH 28.3 (25.0-34.0) pg MCHC 33.8 (32.0-36.0) g/dL RDW Std Deviation 45.0 (36.4-46.3) fL RDW Coeff of Bo 14.6 H (11.5-14.5) % Plt Count 124 L (130-400) K/uL MPV 10.5 (9.4-12.4) fL Immature Gran % (Auto) 2.1 % Neut % (Auto) 81.9 % Lymph % (Auto) 10.9 % [place] % (Auto) 4.2 % Eos % (Auto) 0.5 % Baso % (Auto) 0.4 % Neut # (Auto) 4.66 (1.40-6.50) K/uL Lymph # (Auto) 0.62 L (1.20-3.40) K/uL [place] # (Auto) 0.24 (0.11-0.59) K/uL Eos # (Auto) 0.03 (0.00-0.50) K/uL Baso # (Auto) 0.02 (0.00-0.20) K/uL Immature Gran # (Auto) 0.12 (0.01-0.20) K/uL Echinocytes 1+ Sodium 133 L (136-145) mmol/L Potassium 3.7 (3.5-5.1) mmol/L Chloride 90 L (98-107) mmol/L Carbon Dioxide 28 (21-32) mmol/L Anion Gap 15 H (3-11) BUN 114 H (6-23) mg/dl Creatinine 5.38 H* (0.6-1.4) mg/dl Est Cr Clr Drug Dosing 12.1 ml/min Est GFR ( Amer) 12.3 ml/min Est GFR (Non-Af Amer) 10.7 ml/min BUN/Creatinine Ratio 21.2 H (10-20) Glucose 99 (70-99(Fasting)) mg/dl Calcium 8.0 L (8.6-10.3) mg/dl Magnesium 3.7 H (1.7-2.4) mg/dl Total Bilirubin 5.6 H (0.2-1.0) mg/dl AST 186 H (13-39) U/L ALT 26 (7-52) U/L Alkaline Phosphatase 303 H (34-104) U/L Troponin I High Sens 24.8 H (0-20) pg/ml Total Protein 7.1 (6.0-8.3) gm/dl Albumin 2.8 L (3.4-5.0) gm/dl Globulin 4.3 H (2.5-4.0) gm/dl Albumin/Globulin Ratio 0.7 L (0.9-2) Lipase 99 H (11-82) U/L Urine Color Dark Yellow Urine Appearance Cloudy A (Clear) Urine pH 5.0 (4.5-7.5) Ur Specific [place] 1.017 (1.000-1.030) Urine Protein Trace H (Negative) Urine Glucose (UA) Negative (Negative) Urine Ketones Negative (Negative) Urine Blood Negative (Negative) Urine Nitrite Positive A (Negative) Urine Bilirubin 1+ H (Negative) Urine Urobilinogen Negative (Negative) Ur Leukocyte Esterase Negative (Negative) Urine WBC (Auto) 1-5 (0-5) /hpf Urine RBC (Auto) 0-4 (0-4) /hpf U Hyaline Cast (Auto) 1-5 (0-5) /lpf U Epithel Cells (Auto) 0-5 (0-5) /lpf Urine Bacteria (Auto) 1+ H (Negative) Urine Mucus Present A (None Prsent) Urine Yeast Not Reportable
[2023-08-20] MEDS ORDERED: GABAPENTIN 600 MG TAB PO ONE (09:45)
--- NOTE | 2023-08-20 09:52 | Electrocardiogram Report ---
Test Reason : Blood Pressure : / mmHG Vent. Rate : 064 BPM Atrial Rate : 064 BPM P-R Int : 112 ms QRS Dur : 094 ms QT Int : 518 ms P-R-T Axes : 051 022 003 degrees QTc Int : 534 ms Normal sinus rhythm Nonspecific T wave abnormality Anterior leads Prolonged QT Abnormal ECG When compared with ECG of 08-AUG-2023 14:53, Nonspecific T wave abnormality now evident in Anterior leads Confirmed by Greg Domingo ([id number]) on 08/20/2023 9:51:57 AM Referred By: REFERRED SELF Confirmed By:Greg Domingo
[2023-08-20] MEDS: LEVOTHYROXINE SODIUM 75 MCG TABLET PO SCH (09:56)
[2023-08-20] MEDS: THIAMINE HCL 100 MG in SYRINGE 9 ML IV SCH (09:56)
[2023-08-20] MEDS: FOLIC ACID 1 MG in SYRINGE 9.8 ML IV SCH (09:56)
[2023-08-20] MEDS: HEPARIN SOD 5,000 UNIT/0.5 ML VIAL SQ SCH ×2 (09:56→21:01)
[2023-08-20 10:09] LABS: Hematocrit (blood only) 28.4 % (42.0-52.0); Hemoglobin 9.8 g/dl (14.0-18.0); Mean Corpuscular Hemoglobin 28.9 pg (25.0-34.0); Mean Corpuscular Hgb Conc 34.5 g/dL (32.0-36.0); Mean Corpuscular Volume 83.8 fL (80.0-100.0); Platelet Count 99 K/uL (130-400); RDW Coefficient of Variation 14.6 % (11.5-14.5); RDW Standard Deviation 44.6 fL (36.4-46.3); Red Blood Count 3.39 M/uL (4.70-6.10); White Blood Count 7.86 K/ul (4.8-10.8)
[2023-08-20] MEDS: cefTRIAXone SODIUM 2,000 MG in DEXTROSE 5 % MINI-B 50 ML IV SCH (10:10)
[2023-08-20 10:17] LABS: Calcium 7.3 mg/dl (8.6-10.3); Magnesium 2.8 mg/dl (1.7-2.4); Potassium 3.5 mmol/L (3.5-5.1)
[2023-08-20 10:23] LABS: BUN Creatinine Ratio 23.9 (10-20); Creatinine Clr Calc Pharmacy 15.5 ml/min; Est GFR (African American) 16.1 ml/min; Est GFR (Non-African American) 13.9 ml/min
[2023-08-20 10:36] LABS: Thyroid Stimulating Hormone 9.846 uIu/ml (0.300-4.500)
[2023-08-20 10:38] LABS: Basophils # (auto) 0.03 K/uL (0.00-0.20); Basophils % (auto) 0.4 %; Echinocytes 1+; Eosinophils # (auto) 0.04 K/uL (0.00-0.50); Eosinophils % (auto) 0.5 %; Immature Granulocytes # (auto) 0.17 K/uL (0.01-0.20); Immature Granulocytes % (auto) 2.2 %; Lymphocytes # (auto) 0.52 K/uL (1.20-3.40); Lymphocytes % (auto) 6.6 %; Monocytes # (auto) 0.37 K/uL (0.11-0.59); Monocytes % (auto) 4.7 %; Neutrophils # (auto) 6.73 K/uL (1.40-6.50); Neutrophils % (auto) 85.6 %; Target Cells 1+
[2023-08-20 11:11] LABS: T4 Free Thyroxine 0.45 ng/dl (0.61-1.60)
[2023-08-20 11:52] LABS: INR 1.5 (0.9-1.1); Prothrombin Time 15.8 Seconds (9.0-12.0)
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
--- NOTE | 2023-08-20 12:24 | CT Scan Report ---
ABDOMEN AND PELVIS CT WITHOUT CONTRAST CT DOSE: 676.13 mGy.cm HISTORY: Acute kidney injury with elevated LFTs. [place], elevated lft TECHNIQUE: Multiaxial CT images of the abdomen and pelvis were performed without contrast. A dose lo wering technique was utilized adhering to the principles of ALARA. COMPARISON STUDY: 08/19/2023, 08/06/2018. FINDINGS: Cardiomegaly with coronary artery calcifications. Small pleural effusions. Pulmonary edema with bibasilar consolidation. No free air. Limited exam without the use of IV contrast. The spleen is enlarged measuring 16.4 cm in length. Moderately atrophic pancreas. Unremarkable adrenal glands. Unc hanged gallbladder wall thickening. Mild hepatic steatosis. The liver measures up to 18 cm in length. Mild marginal nodularity of the liver. Unchanged periportal lymphadenopathy. Unremarkable kidneys. No hydronephrosis. Circumferential urinary bladder wall thickening. Prostatomeg deshaun. Atherosclerosis of the aorta. Small fluid-filled left femoral hernia on image 336. No bowel obst ruction. Moderate abdominopelvic ascites. Mild wall thickening throughout the majority of the large b owel. Fluid-filled appendix measures up to 9 mm and contains hyperdense foci without acute inflammati on. No acute fracture. Severe intervertebral disc space narrowing with endplate irregularity at L3-L4 . Mild generalized body wall edema. IMPRESSION: 1. Stable exam from the study obtained 12 hours earlier. Cardiomegaly with pulmonary edema, small ple ural effusions and bibasilar consolidation favoring atelectasis. 2. Hepatosplenomegaly with hepatic steatosis and probable cirrhosis. 3. Moderate abdominopelvic ascites with anasarca. 4. Fluid-filled loops of large and small bowel are noted with mild diffuse large bowel wall thickenin g, likely secondary to portal colopathy. A nonspecific colitis could appear similarly. 5. Prostatomegaly with evidence of chronic outlet obstruction. No hydronephrosis. 6. Additional findings as above. ACT 112: Negative or not required by law. The above report was generated using voice recognition software. It may contain grammatical, syntax o r spelling errors. Dictated: 08/20/2023 11:07 AM Transcribed: 08/20/2023 11:45 AM Toni [id number] [email or web address] Electronically signed by: Tito Gaona M.D. 08/20/2023 12:22 PM
[2023-08-20 12:25] LABS: Ferritin 832.5 ng/ml (8-388)
[2023-08-20] MEDS: GABAPENTIN 100 MG CAP PO SCH ×2 (12:26→17:30)
--- NOTE | 2023-08-20 18:00 | Hospitalist Progress Note ---
Date of Service August 20, 2023 Assessment & Plan (1) DANI (acute kidney injury): Plan: 58-year-old male with past med significant for ulcerative pancolitis, Dupuytren's contracture of hand, depression, alcohol abuse presents with weakness, poor appetite and found to DANI and elevated LFTs. DANI In setting of Volume overload Chronic outlet obstruction DD: HRS --CT ABD:Cardiomegaly with pulmonary edema, small pleural effusions and bibasilar consolidation favoring atelectasis. Hepatosplenomegaly with hepatic steatosis and probable cirrhosis. Moderate abdominopelvic ascites with anasarca. Fluid-filled loops of large and small bowel are noted with mild diffuse large bowel wall thickening, likely secondary to portal colopathy. A nonspecific colitis could appear similarly. Prostatomegaly with evidence of chronic outlet obstruction. No hydronephrosis. -- Bladder scan as needed Consider Cordova catheter if noted to have retention Avoid nephrotoxic agents as able --Cr:5.38>4.31 Receiving gentle IV fluids Monitor volume status Appreciate nephrology input Alcohol use disorder Continue gabapentin protocol Continue Thiamine, Folic acid Monitor for withdrawal Hyponatremia Likely multifactorial secondary to volume overload, no alcohol use Sodium 135 today Monitor sodium levels Abnormal urinalysis R/O UTI Urine Culture pending Empirically on Rocephin Alcoholic cirrhosis Hepatosplenomegaly on CT Ascites Transaminitis Discriminant function index is 23 Otitis panel pending Counseled to quit alcohol use Low-sodium diet Outpatient EGD Appreciate GI input Monitor LFTs Abnormal thyroid function test H/O hypothyroidism Elevated TSH, low free T4 ? Compliance Continue levothyroxine Will need repeat thyroid function test Mild elevation troponin Mostly from renal dysfunction Follow serial enzymes Anemia of chronic disease Thrombocytopenia Serum iron levels low Consider starting on iron supplements FOBT pending History of ulcerative colitis Continue home meds Depression Was on Zoloft and trazodone We will hold trazodone and Zoloft for now for QT prolongation Prolonged QTc Avoid QT prolonging drugs Follow repeat EKG DVT prophylaxis Heparin subcu Monitor platelets Code Status Full code Disposition PT/OT prior to discharge Admission and Anticipated Discharge Date Admission Date: August 20, 2023 Subjective Patient is seen and examined at bedside States having generalized weakness, very poor appetite Also reports leg edema Admits to drinking alcohol on daily basis Denies any chest pain, dyspnea Discussed with patient's family at bedside No other complaints Review of Systems Review of Systems: All systems reviewed & are unremarkable except as noted in Subjective Physical Exam Physical Exam: Physical Exam: Vitals signs as noted above General Appearance:Thin, frail, chronic ill appearing Head: normocephalic, Atraumatic Eyes: normal inspection, EOMI Neck: supple, Trachea midline Respiratory/Chest: Normal breath sounds, CTA, No accessory muscle use Cardiovascular: S1, S2, No murmur Abdomen/GI:Soft, Non tender, +distended, Bowel sounds present Extremities/Musculoskeletal:normal inspection, 1+ pedal edema Neurologic/Psych:AAOX3, grossly no focal neurological deficits Skin: normal color, warm Results & Data Results & Data Vital Signs (Past 12 Hours) Vital Signs Temp Pulse Pulse Resp BP BP Pulse Ox 08/20/23 13:59 66 08/20/23 08:18 36.4 C L 68 18 96/44 L 96 08/20/23 07:37 36.8 C 68 17 104/59 L 97 08/20/23 06:00 68 17 97 O2 Del Method 08/20/23 13:59 08/20/23 08:18 Room Air 08/20/23 07:37 Room Air 08/20/23 06:00 Room Air Laboratory Results Short CBC 08/19/23 08/20/23 Range/Units 21:15 09:29 WBC 5.69 7.86 (4.8-10.8) K/ul Hgb 11.7 L 9.8 L (14.0-18.0) g/dl Hct 34.6 L 28.4 L (42.0-52.0) % Plt Count 124 L 99 L (130-400) K/uL BMP 08/19/23 08/20/23 21:15 09:29 Sodium 133 L 135 L Potassium 3.7 3.5 Chloride 90 L 99 Carbon Dioxide 28 24 BUN 114 H 103 H Creatinine 5.38 H* 4.31 H D Glucose 99 82 Calcium 8.0 L 7.3 L Liver Function 08/19/23 Range/Units 21:15 Total Bilirubin 5.6 H (0.2-1.0) mg/dl AST 186 H (13-39) U/L ALT 26 (7-52) U/L Alkaline Phosphatase 303 H (34-104) U/L Albumin 2.8 L (3.4-5.0) gm/dl Urine 08/19/23 Range/Units 21:40 Urine Color Dark Yellow Urine Appearance Cloudy A (Clear) Urine pH 5.0 (4.5-7.5) Ur Specific Gypsum 1.017 (1.000-1.030) Urine Protein Trace H (Negative) Urine Glucose (UA) Negative (Negative)
[2023-08-21] MEDS ORDERED: GABAPENTIN 600 MG TAB PO SCH (05:00)
[2023-08-21] MEDS: LEVOTHYROXINE SODIUM 75 MCG TABLET PO SCH (05:44)
[2023-08-21 06:37] LABS: Calcium 7.6 mg/dl (8.6-10.3); Magnesium 2.9 mg/dl (1.7-2.4); Potassium 3.5 mmol/L (3.5-5.1)
[2023-08-21 06:39] LABS: Hematocrit (blood only) 29.5 % (42.0-52.0); Mean Corpuscular Hemoglobin 28.5 pg (25.0-34.0); Mean Corpuscular Hgb Conc 33.9 g/dL (32.0-36.0); Mean Platelet Volume 10.9 fL (9.4-12.4); Platelet Count 121 K/uL (130-400); RDW Coefficient of Variation 14.9 % (11.5-14.5); RDW Standard Deviation 45.4 fL (36.4-46.3); Red Blood Count 3.51 M/uL (4.70-6.10); White Blood Count 7.29 K/ul (4.8-10.8)
[2023-08-21 06:43] LABS: BUN Creatinine Ratio 26.5 (10-20); Creatinine Clr Calc Pharmacy 19.9 ml/min; Est GFR (African American) 21.2 ml/min; Est GFR (Non-African American) 18.3 ml/min; Phosphorus 5.5 mg/dl (2.5-4.9)
[2023-08-21 07:18] LABS: Folate (Folic Acid),Ser orPlas 8.43 ng/ml (>5.38)
[2023-08-21 07:19] LABS: Vitamin B12 > 1500 pg/ml (180-914)
[2023-08-21] MEDS: cefTRIAXone SODIUM 2,000 MG in DEXTROSE 5 % MINI-B 50 ML IV SCH (08:32)
[2023-08-21] MEDS: FOLIC ACID 1 MG in SYRINGE 9.8 ML IV SCH (08:33)
[2023-08-21] MEDS: THIAMINE HCL 100 MG in SYRINGE 9 ML IV SCH (08:34)
[2023-08-21] MEDS: HEPARIN SOD 5,000 UNIT/0.5 ML VIAL SQ SCH ×2 (08:35→19:33)
--- NOTE | 2023-08-21 08:40 | Gastroenterology Progress Note ---
Date of Service August 21, 2023 Assessment & Plan (1) Cirrhosis: Plan: 58 year old male with UC on PO mesalamine, ETOH abuse and others below admitted with DANI, elevated LFTs, imaging with cirrhosis. - Elevated LFTs - ETOH cessation discussed - CT shows cirrhosis - Check coagulation studies - Check liver serology - Low DF, 23 - MELD, 30 - No ETOH - No NSAIDs - Less than 2G tylenol if using - Low NA diet, less than 2G sodium - Diagnostic paracentesis pending RARE/ENDANGERED SPECIES SPECIALIST improvement - OP EGD - ETOH withdrawal protocol - DANI - Appreciate nephrology evaluation - Recommend urine studies - Rule out HRS - Ulcerative colitis - Continue home medications - If he has diarrhea, submit stool culture and c.diff - Continue follow up with his established GI team Admission and Anticipated Discharge Date Admission Date: August 20, 2023 Supervising Physician Co-Signing Physician Notes Saw and evaluated the patient. Of note his kidney function is significantly improved today. I would highly recommend daily liver enzymes be performed so that we may track his bilirubin. Please follow recommendations as noted. Subjective Pt was seen and evaluated, chart reviewed. Feeling better. No abd pain, nausea, vomiting. RARE/ENDANGERED SPECIES SPECIALIST improved. Liver serology pending. Review of Systems Review of Systems: All systems reviewed & are unremarkable except as noted in HPI & below Physical Exam Constitutional: WD/WN, vitals as above Respiratory: normal respiratory effort, lungs clear to auscultation Cardiovascular: Rate/Rhythm: regular rate and regular rhythm Gastrointestinal (Abdomen): + ascites, nontender, mild distention Skin: no rashes, warm and dry Results & Data Vital Signs (Past 12 Hours) Vital Signs Temp Pulse Pulse Resp BP Pulse Ox O2 Del Method 08/21/23 07:43 36.3 C L 58 L 18 97/59 L 95 Nasal Cannula 08/21/23 03:43 36.6 C 61 18 90/47 L 91 Room Air 08/20/23 23:15 36.4 C L 64 18 92/57 L 98 Room Air 08/20/23 22:01 64 O2 Flow Rate 08/21/23 07:43 1 08/21/23 03:43 08/20/23 23:15 08/20/23 22:01 Laboratory Results 08/21/23 08/20/23 08/20/23 Range/Units 06:04 11:16 09:29 WBC 7.29 7.86 (4.8-10.8) K/ul RBC 3.51 L 3.39 L (4.70-6.10) M/uL Hgb 10.0 L 9.8 L (14.0-18.0) g/dl Hct 29.5 L 28.4 L (42.0-52.0) % MCV 84.0 83.8 (80.0-100.0) fL MCH 28.5 28.9 (25.0-34.0) pg MCHC 33.9 34.5 (32.0-36.0) g/dL RDW Std Deviation 45.4 44.6 (36.4-46.3) fL RDW Coeff of Bo 14.9 H 14.6 H (11.5-14.5) % Plt Count 121 L 99 L (130-400) K/uL MPV 10.9 11.0 (9.4-12.4) fL Immature Gran % (Auto) 2.2 % Neut % (Auto) 85.6 % Lymph % (Auto) 6.6 % [place] % (Auto) 4.7 % Eos % (Auto) 0.5 % Baso % (Auto) 0.4 % Neut # (Auto) 6.73 H (1.40-6.50) K/uL Lymph # (Auto) 0.52 L (1.20-3.40) K/uL [place] # (Auto) 0.37 (0.11-0.59) K/uL Eos # (Auto) 0.04 (0.00-0.50) K/uL Baso # (Auto) 0.03 (0.00-0.20) K/uL Immature Gran # (Auto) 0.17 (0.01-0.20) K/uL Target Cells 1+ Echinocytes 1+ PT 15.8 H (9.0-12.0) Seconds INR 1.5 H (0.9-1.1) Sodium 135 L 135 L (136-145) mmol/L Potassium 3.5 3.5 (3.5-5.1) mmol/L Chloride 100 99 (98-107) mmol/L Carbon Dioxide 26 24 (21-32) mmol/L Anion Gap 9 12 H (3-11) BUN 91 H 103 H (6-23) mg/dl Creatinine 3.44 H D 4.31 H D (0.6-1.4) mg/dl Est Cr Clr Drug Dosing 19.9 15.5 ml/min Est GFR ( Amer) 21.2 16.1 ml/min Est GFR (Non-Af Amer) 18.3 13.9 ml/min BUN/Creatinine Ratio 26.5 H 23.9 H (10-20) Glucose 86 82 (70-99(Fasting)) mg/dl Calcium 7.6 L 7.3 L (8.6-10.3) mg/dl Phosphorus 5.5 H (2.5-4.9) mg/dl Magnesium 2.9 H 2.8 H (1.7-2.4) mg/dl Iron 12 L (35-175) mcg/dl Ferritin 832.5 H (8-388) ng/ml Total Creatine Kinase 20 L (30-223) U/L Vitamin B12 > 1500 H (180-914) pg/ml Folate 8.43 (>5.38) ng/ml TSH 9.846 H (0.300-4.500) uIu/ml Free T4 0.45 L (0.61-1.60) ng/dl RENA Screen Pending Anti-Mitochondrial Ab Pending Anti-Smooth Muscle Ab Pending Tiss Transglutamin IgA Pending CMV IgM Ab Pending CMV IgG Ab/TORCH Pending EBV Capsid Ag IgG Ab Pending EBV Capsid Ag IgM Ab Pending Hepatitis A IgM Ab Pending Hep Bs Antigen Pending Hep Bs Ag Confirmation Pending Hep B Core IgM Ab Pending Hepatitis C Ab (EIA) Pending (1) Cirrhosis Ascites presence: unspecified Hepatic cirrhosis type: unspecified hepatic cirrhosis Qualified Code(s): K74.60 - Unspecified cirrhosis of liver
--- NOTE | 2023-08-21 11:03 | Nephrology Progress Note ---
Date of Service August 21, 2023 Assessment & Plan (1) DANI (acute kidney injury): Plan: further improving nonoliguric stage 3 DANI w/ baseline creatinine 1.0 in early August 2023 and presenting creatinine 5.3. creat down to 3.4 this am. kidneys unremarkable on renal imaging. his sbp was in 90-100s in ER earlier this month and on prior [facility] encounter in Sep 2021; remaining in that range now. at least some prerenal component; concern he will ultimately prove to be total body overloaded and intravascularly dry -for now no diuretics -encourage high potassium snacks/drinks -encourage po fluids >imperative that he have no more EtOH and no more NSAIDS now or after d/c; reinforced this w/ pt and family -f/u on GI recs -check CK in AM > wnl -daily bmp -continue strict I/O -continue nephrotoxin avoidance -no indication currently for dialysis discussion and not at all clear he would be a candidate Admission and Anticipated Discharge Date Admission Date: August 20, 2023 Subjective no interval events. hasn't been out of bed. no sob, no worsening abd distension ; family at bedside; no edema no issues passing urine Review of Systems 2 Review of Systems: All systems reviewed & are unremarkable except as noted in Subjective Physical Exam 2 Constitutional: well developed and + malnourished; no acute distress Eyes: EOM intact bilaterally ENMT: Ears: no external ear abnormality Nose: no external nose abnormality Mouth: + dry oral mucous membranes Neck: no nuchal rigidity Respiratory: normal respiratory effort Auscultation: + diminished lung sounds Cardiovascular: Rate/Rhythm: regular rate and regular rhythm Extremities: + edema (trace-1+ BL ankle) Gastrointestinal (Abdomen): Inspection/Auscultation: + abdomen distended and normal bowel sounds Percussion/Palpation: abdomen soft and + ascites; abdomen nontender Musculoskeletal: Extremities: strength 5/5 throughout Skin: no rashes, warm and dry Psychiatric: Orientation: alert, oriented to person and oriented to place I nsight: + limited insight Judgment: + limited judgement Results & Data Vital Signs (Past 12 Hours) Vital Signs Temp Pulse Resp BP Pulse Ox O2 Del Method O2 Flow Rate 08/21/23 07:43 36.3 C L 58 L 18 97/59 L 95 Nasal Cannula 1 08/21/23 03:43 36.6 C 61 18 90/47 L 91 Room Air 08/20/23 23:15 36.4 C L 64 18 92/57 L 98 Room Air Laboratory Results 08/21/23 06:04 08/21/23 06:04
[2023-08-21 15:15] LABS: Albumin Level 2.3 gm/dl (3.4-5.0); Bilirubin Direct 2.3 mg/dl (0-0.2); Bilirubin,Total 3.6 mg/dl (0.2-1.0)
--- NOTE | 2023-08-21 17:49 | Hospitalist Progress Note ---
Date of Service August 21, 2023 Assessment & Plan (1) DANI (acute kidney injury): Plan: 58-year-old male with past med significant for ulcerative pancolitis, Dupuytren's contracture of hand, depression, alcohol abuse presents with weakness, poor appetite and found to DANI and elevated LFTs. DANI In setting of Volume overload Chronic outlet obstruction DD: HRS --CT ABD:Cardiomegaly with pulmonary edema, small pleural effusions and bibasilar consolidation favoring atelectasis. Hepatosplenomegaly with hepatic steatosis and probable cirrhosis. Moderate abdominopelvic ascites with anasarca. Fluid-filled loops of large and small bowel are noted with mild diffuse large bowel wall thickening, likely secondary to portal colopathy. A nonspecific colitis could appear similarly. Prostatomegaly with evidence of chronic outlet obstruction. No hydronephrosis. -- Bladder scan as needed Consider Cordova catheter if noted to have retention Avoid nephrotoxic agents as able --Cr:5.38>4.31>3.4 Receiving gentle IV fluids Appreciate nephrology input Renal function slowly improving No indication for dialysis currently Monitor volume status closely Alcohol use disorder Continue gabapentin protocol Continue Thiamine, Folic acid Monitor for withdrawal Hyponatremia Likely multifactorial secondary to volume overload, no alcohol use Sodium 135 today Monitor sodium levels Abnormal urinalysis R/O UTI Urine Culture --- preliminary negative Empirically on Rocephin Alcoholic cirrhosis Hepatosplenomegaly on CT Ascites Transaminitis Discriminant function index is 23 Hepatitis panel pending Counseled to quit alcohol use Low-sodium diet Outpatient EGD Appreciate GI input Monitor LFTs Abnormal thyroid function test H/O hypothyroidism Elevated TSH, low free T4 ? Compliance Continue levothyroxine Will need repeat thyroid function test Mild elevation troponin Mostly from renal dysfunction Follow serial enzymes Anemia of chronic disease Thrombocytopenia Serum iron levels low Consider starting on iron supplements FOBT pending History of ulcerative colitis Continue home meds Depression Was on Zoloft and trazodone We will hold trazodone and Zoloft for now for QT prolongation Prolonged QTc Avoid QT prolonging drugs Follow repeat EKG DVT Px: Heparin SQ Monitor platelets Code Status Full code Disposition PT/OT prior to discharge Admission and Anticipated Discharge Date Admission Date: August 20, 2023 Subjective Patient is seen and examined at bedside Feels better today Renal function slowly improving Discussed with patient's family at bedside Appetite better today Currently no signs of alcohol withdrawal Denies any chest pain, dyspnea, abd pain Review of Systems Review of Systems: All systems reviewed & are unremarkable except as noted in Subjective Physical Exam Physical Exam: Physical Exam: Vitals signs as noted above General Appearance:Thin, frail, chronic ill appearing Head: normocephalic, Atraumatic Eyes: normal inspection, EOMI Neck: supple, Trachea midline Respiratory/Chest: Normal breath sounds, CTA, No accessory muscle use Cardiovascular: S1, S2, No murmur Abdomen/GI:Soft, Non tender, +distended, Bowel sounds present Extremities/Musculoskeletal:normal inspection, 1+ pedal edema Neurologic/Psych:AAOX3, grossly no focal neurological deficits Skin: normal color, warm Results & Data Results & Data Vital Signs (Past 12 Hours) Vital Signs Temp Pulse Resp BP Pulse Ox O2 Del Method O2 Flow Rate 08/21/23 15:35 36.4 C L 61 18 97/60 L 92 Room Air 08/21/23 11:26 36.5 C 62 18 95/57 L 95 Room Air 08/21/23 07:43 36.3 C L 58 L 18 97/59 L 95 Nasal Cannula 1 Laboratory Results Short CBC 08/21/23 Range/Units 06:04 WBC 7.29 (4.8-10.8) K/ul Hgb 10.0 L (14.0-18.0) g/dl Hct 29.5 L (42.0-52.0) % Plt Count 121 L (130-400) K/uL BMP 08/21/23 06:04 Sodium 135 L Potassium 3.5 Chloride 100 Carbon Dioxide 26 BUN 91 H Creatinine 3.44 H D Glucose 86 Calcium 7.6 L Cardiac Enzymes 08/21/23 Range/Units 06:04 Total Creatine Kinase 20 L (30-223) U/L Liver Function 08/21/23 Range/Units 12:36 Total Bilirubin 3.6 H (0.2-1.0) mg/dl Direct Bilirubin 2.3 H (0-0.2) mg/dl AST 114 H (13-39) U/L ALT 17 (7-52) U/L Alkaline Phosphatase 285 H (34-104) U/L Albumin 2.3 L (3.4-5.0) gm/dl
--- OUTSIDE RECORDS SUMMARY | 2023-08-21 23:48 | External Medical Summary | Summary of Care ---
Author Name Unknown Organization [facility] Address [address] [place] [address] Phone [phone] Care Team Providers Care Labor Relations Consultant Name Role Phone Bernard Rodriguez MD Primary Care Provider [phone]- [phone] Reason for Visit * Reason Comments Outpatient Testing Encounter Details Date Type Department Care Team (Late st Contact Info) Description 08/14/2023 1:50 PM EST Laboratory Laboratory, [place] [address] [place] [address] [place] [address] [place] [address] Other specified hypothyroidism; Anemia, unspecified type Allergies Active Allergy Reactions Criticality Noted Date Comments Amoxicillin-Pot Clavulanate 08/09/20 15 documented as of this encounter (statuses as of 08/14/2023) Medications Medication Sig Dispensed Refills Start Date End Date Status predniSONE 10 MG Oral Tablet (Deltasone) Taper: 40mg daily x 5 days, 30mg daily x 5 days, 20mg daily x 5 days, 15mg daily x 5 days, 10mg daily x 5 days, 5mg daily x 5 days. 100 Tab 2 06/15/2021 Active Balsalazide Disodium 750 MG Oral CapsuleIndications:Ul cerative colitis with complication, unspecified location (HCC) TAKE 3 CAPSULES BY MOUTH THREE TIMES DAILY 270 Capsule 11 02/03/2023 Active traZODone HCl 100 MG Oral Tablet (Desyrel) TAKE 1 TABLET BY MOUTH AT BEDTIME 90 Tablet 1 03/04/2023 Active Sertraline HCl 100 MG Oral Tablet (Zoloft) TAKE 1 & 1/2 (ONE & ONE-HALF) TABLETS BY MOUTH ONCE DAILY 135 Tablet 0 07/21/2023 Active Loperamide HCl 2 MG Oral Capsule (Imodium) TAKE 1 CAPSULE BY MOUTH THREE TIMES DAILY NEEDED FOR DIARRHEA 90 Capsule 4 07/21/2023 Active Levothyroxine Sodium 75 MCG Oral TabletIndications:Oth er specified hypothyroidism TAKE 1 TABLET BY MOUTH ONCE DAILY IN THE MORNING AT LEAST 30 MINUTES PRIOR TO BREAKFAST OR OTHER MEDS 90 Tablet 0 08/09/2023 Active documented as of this encounter (statuses as of 08/14/2023) Active Problems Problem Noted Date Diagnosed Date Ulcerative pancolitis without complication 02/09 Recurrent major depressive disorder, in partial remission 02/09/2021 Other specified hypothyroidism 02/09/2021 Alcohol abuse 12/04/2017 Dupuytren's contracture of hand 12/18/2012 Pruritic disorder 04/22/2008 documented as of this encounter (statuses as of 08/14/2023) Resolved Problems Problem Noted Date Diagnosed Date Resolved Date Toxic effect of venom 04/22/20082017 Overview: ICD-10 update of inactive term documented as of this encounter (statuses as of 08/14/2023) Immunizations Name Administration Dates Next Due COVID-19 mRNA, LNP-s, No Pre serve, 2-Dose Series ([employer]) 01/04/2021,12/14/2020 Hepatitis B, 20+ yrs 10/29/2021,05/28/2021,04/27 TDAP (age 10 and older)(Boostrix) 07/22/2018 documented as of this encounter Social History Tobacco Use Types Packs/Day Years Used Date Smoking Tobacco: Former Smokeless Tobacco: Never Comments:quit over 20+ years ago ( was a very heavy smoker 2 packs a day) Alcohol Use Standard Drinks/Week Comments Yes 12 (1 standard drink = 0.6 oz pu re alcohol) PHQ-2 Answer Date Recorded PHQ Adult Total Score 12 06/13/2021 Hunger Vital Sign Answer Date Recorded Worried About Running Out of Food in the Last Ye ar Never true 12/23/2019 Ran Out of Food in the Last Year Never true 12/23/2019 Sex and Gender Information Value Date Recorded Sex Assigned at Male 12/23/2019 1:39 PM EDT Gender Identity Male 12/23/2019 1:39 PM EDT Sexual Orientation Straight 12/23/2019 1: 39 PM EDT Job Start Date Occupation Industry Not on file Not on file Not on file documented as of this encounter Plan of Treatment Upcoming Encounters Date Type Department Care Team (Late st Contact Info) Description 09/12/2023 8:15 AM EST Imaging Radiology [facility] [address] [facility] [place] [address] 10/29/2023 12:20 PM EST Office Visit [facility] [address] [place] [address] Bernard Rodriguez MD [address] [place] [address] 02/04/2024 8:45 AM EDT Imaging Radiology [facility] [address] [facility] [place] [address] Pending Results Name Type Priority Associated Diagnoses Date /Time TSH WITH FREE T4 IF INDICATED Lab Routine Other specified hypothyroidism 08/14/2023 1:48 PM EST BASIC METABOLIC PANEL Lab Routine Other specified hypothyroidism 08/14/2023 1:48 PM EST CBC Lab Routine Anemia, unspecified type 08/14/2023 1:48 PM EST VITAMIN B12 Lab Routine Anemia, unspecified type 08/14/2023 1:48 PM EST FOLIC ACID Lab Routine Anemia, unspecified type 08/14/2023 1:48 PM EST IRON SCREEN, INCLUDING TIBC Lab Routine Anemia, unspecified type 08/14/2023 1:48 PM EST FERRITIN Lab Routine Anemia, unspecified type 08/14/2023 1:48 PM EST Health Maintenance Due Date Last Done Comments Pneumococcal Vaccine: Pediatrics (0 to 5 Years) and At-Risk Patients (6 to 64 Years) (1 - PCV) 1969 HIV Screening 1978 Cologuard 2008 Fecal Occult Blood Test 2008 Sigmoidoscopy 2008 Zoster Vaccines (1 of 2) 2013 Depression, Most Recent Score >= 10 (will fire each visit until score < 10) 06/14/2021 06/13/2021 COVID-19 Vaccine (3 - season) 2023 01/04/2021, 12/14/2020 Influenza Vaccine (FLU shot) (#1) 2023 TSH 01/03/2024 01/02/2023, 04/05, 02/20/2021, Additional history exists Lipid Panel 01/03/2028 01/02/2023 DTaP,Tdap,and Td Vaccines (2 - Td or Tdap) 07/22/2028 07/22/2018 Colonoscopy 04/15/2029 04/15/2019, 04/15/2019 Colorectal Cancer Screening 04/15/2029 Hepatitis C Screening Completed 04/18/2021 Hepatitis B Completed 10/29/2021, 05/07, 04/27/2021 GARDASIL-HPV IMMUNIZATION SERIES Aged Out No longer eligible based on patient's age to complete this topic MENINGOCOCCAL (MENACTRA/MENVEO) Aged Out No longer eligible based on patient's age to complete this topic documented as of this encounter Medical Devices Not on filedocumented as of this encounter Visit Diagnoses Diagnosis Other specified hypothyroidism Anemia, unspecified type documented in this encounter Care Teams Labor Relations Consultant Relationship Specialty Start Date End Date Bernard Rodriguez MD [address] [place] [address] PCP - General 06/25/00 documented as of this encounter
--- OUTSIDE RECORDS SUMMARY | 2023-08-21 23:48 | External Medical Summary | Summary of Care ---
Author Name Unknown Organization [facility] Address [address] [place] [address] Phone [phone] Care Team Providers Care Retail Supervisor Name Role Phone Patience Conley MD Primary Care Provider [phone]- [phone] Reason for Visit * Reason Comments eRx-Medication Refill Encounter Details Date Type Department Care Team (Late st Contact Info) Description 08/08/[address] [facility] [address] [place] [address] Patience Conley MD [address] [place] [address] Other specified hypothyroidism Allergies Active Allergy Reactions Criticality Noted Date Comments Amoxicillin-Pot Clavulanate 08/09/20 15 documented as of this encounter (statuses as of 08/09/2023) Medications Medication Sig Dispensed Refills Start Date End Date Status busPIRone HCl 15 MG Oral Tablet (Buspar)Indications :Stress due to family tension One half to one whole tab by mouth up to three times a day for stress and panic 20 Tab 0 1 Active predniSONE 10 MG Oral Tablet (Deltasone) Taper: 40mg daily x 5 days, 30mg daily x 5 days, 20mg daily x 5 days, 15mg daily x 5 days, 10mg daily x 5 days, 5mg daily x 5 days. 100 Tab 2 1 Active Balsalazide Disodium 750 MG Oral CapsuleIndications: Ulcerative colitis with complication, unspecified location (HCC) TAKE 3 CAPSULES BY MOUTH THREE TIMES DAILY 270 Capsule 11 3 Active traZODone HCl 100 MG Oral Tablet (Desyrel) TAKE 1 TABLET BY MOUTH AT BEDTIME 90 Tablet 1 3 Active Sertraline HCl 100 MG Oral Tablet (Zoloft) TAKE 1 & 1/2 (ONE & ONE-HALF) TABLETS BY MOUTH ONCE DAILY 135 Tablet 0 3 Active Loperamide HCl 2 MG Oral Capsule (Imodium) TAKE 1 CAPSULE BY MOUTH THREE TIMES DAILY NEEDED FOR DIARRHEA 90 Capsule 4 3 Active Levothyroxine Sodium 75 MCG Oral TabletIndications:O ther specified hypothyroidism TAKE 1 TABLET BY MOUTH ONCE DAILY IN THE MORNING AT LEAST 30 MINUTES PRIOR TO BREAKFAST OR OTHER MEDS 90 Tablet 0 3 Active Levothyroxine Sodium 75 MCG Oral TabletIndications:O ther specified hypothyroidism TAKE 1 TABLET BY MOUTH ONCE DAILY IN THE MORNING AT LEAST 30 MIN BEFORE BREAKFAST OR OTHER MEDS 90 Tablet 1 3 08/09/20 23 Discontinued documented as of this encounter (statuses as of 08/09/2023) Active Problems Problem Noted Date Diagnosed Date Ulcerative pancolitis without complication 02/09 Recurrent major depressive disorder, in partial remission 02/09/2021 Other specified hypothyroidism 02/09/2021 Alcohol abuse 12/04/2017 Dupuytren's contracture of hand 12/18/2012 Pruritic disorder 04/22/2008 documented as of this encounter (statuses as of 08/09/2023) Resolved Problems Problem Noted Date Diagnosed Date Resolved Date Toxic effect of venom 04/22/20082017 Overview: ICD-10 update of inactive term documented as of this encounter (statuses as of 08/09/2023) Immunizations Name Administration Dates Next Due COVID-19 mRNA, LNP-s, No Pre serve, 2-Dose Series (Pfizer) 01/04/2021,12/14/2020 Hepatitis B, 20+ yrs 10/29/2021,05/28/2021,04/27 TDAP [...] on file documented as of this encounter Miscellaneous Notes * Telephone Encounter - Emma Noland RPh - 08/09/2023 12:36 PM EDTSigned Prescriptions: Disp Refills Levothyroxine Sodium 75 MCG Oral Tablet 90 Tab*0 Sig: TAKE 1 TABLET BY MOUTH ONCE DAILY IN THE MORNING AT LEAST 30 MINUTES PRIOR TO BREAKFAST OR OTHER MEDS Authorizing Provider: PATIENCE CONLEY Ordering User: EMMA NOLAND * Telephone Encounter - Emma Noland RPh - 08/09/2023 12:36 PM EDT Approved until OV. Beatriz, Emma Noland Clinical Pharmacist [facility] (Formerly [facility]) [phone] 08/09/2023, 12:36 PM documented in this encounter Plan of Treatment Upcoming Encounters Date Type Department Care Team (Late st Contact Info) Description 10/29/2023 12:20 PM EST Office Visit [address] [address] Patience Conley MD [address] [place] [address] 02/04/2024 8:45 AM EDT Imaging Radiology [facility] [address] [facility] [place] [address] Health Maintenance Due Date Last Done Comments [...] encounter Visit Diagnoses Diagnosis Other specified hypothyroidism documented in this encounter Care Teams Retail Supervisor Relationship Specialty Start Date End Date Patience Conley MD [address] [place] [address] PCP - General 06/25/00 documented as of this encounter
--- OUTSIDE RECORDS SUMMARY | 2023-08-21 23:48 | External Medical Summary ---
Author Name Unknown Address Unknown Organization [id number]:LABORATORY [facility] [place] - [facility] [address] [facility] [address] Laboratory Report Ordering Provider Test Date Status YAEL MORIN 08/14/2023 13:48:47 Final Observation Date Value Abnormality Reference (Units ) Status WBC, Total 08/14/2023 13:48:47 7.67 4.00-10.80 (K/uL) Final RBC 08/14/2023 13:48:47 4.05 4.50-5.25 (M/uL) Final Hemoglobin 08/14/2023 13:48:47 11.9 Below low normal 14.0-16.8 (g/dL) Final HCT 08/14/2023 13:48:47 37.6 Below low normal 40.0-48.4 (%) Final MCV 08/14/2023 13:48:47 92.8 82.0-99.5 (fL) Final MCH 08/14/2023 13:48:47 29.4 27.0-34.0 (pg) Final MCHC 08/14/2023 13:48:47 31.6 32.0-36.0 (g/dL) Final RDW 08/14/2023 13:48:47 14.0 11.5-15.5 (%) Final Platelets 08/14/2023 13:48:47 172 140-400 (K/uL) Final MPV 08/14/2023 13:48:47 10.8 6.6-11.1 (fL) Final Nucleated erythrocytes/100 leukocytes [Ratio] in Blood by Automated count 08/14/2023 13:48:47 0 <=0 (/100 WBCs) Final Performing Location LABORATORY [facility] - [address] [place] [address]
--- OUTSIDE RECORDS SUMMARY | 2023-08-21 23:48 | External Medical Summary ---
Author Name Unknown Address Unknown Organization [id number]:LABORATORY [facility] - [address] [place] [address] Laboratory Report Ordering Provider Test Date Status YAEL MORIN 08/14/2023 13:48:47 Final Observation Date Value Abnormality Reference (Units ) Status T4, Free 08/14/2023 13:48:47 0.9 0.9-1.7 (n g/dL) Final Performing Location LABORATORY [facility] - [address] [place] [address]
--- OUTSIDE RECORDS SUMMARY | 2023-08-21 23:48 | External Medical Summary ---
Author Name Unknown Address Unknown Organization [id number]:[facility] [place] [address] [place] [address] Laboratory Report Ordering Provider Test Date Status YAEL MORIN 08/14/2023 13:48:47 Final Observation Date Value Abnormality Reference (Units ) Status Folic Acid 08/14/2023 13:48:47 2.9 Below low normal >4 .5 (ng/mL) Final Performing Location LABORATORY [facility] - [address] [place] [address]
--- OUTSIDE RECORDS SUMMARY | 2023-08-21 23:48 | External Medical Summary ---
Author Name Unknown Address Unknown Organization [id number]:LABORATORY [facility] - [address] [place] [address] Laboratory Report Ordering Provider Test Date Status YAEL MORIN 08/14/2023 13:48:47 Final Observation Date Value Abnormality Reference (Units ) Status Ferritin 08/14/2023 13:48:47 1209 Above high normal 30 -400 (ng/mL) Final Performing Location LABORATORY [facility] - [address] [place] [address]
--- OUTSIDE RECORDS SUMMARY | 2023-08-21 23:48 | External Medical Summary ---
Author Name Unknown Address Unknown Organization [id number]:LABORATORY [facility] [place] - [address] [place] [address] Laboratory Report Ordering Provider Test Date Status YAEL MORIN 08/14/2023 13:48:47 Final Observation Date Value Abnormality Reference (Units ) Status Iron 08/14/2023 13:48:47 11 Below low normal 45-176 (ug/dL) Final Iron-binding capacity 08/14/2023 13:48:47 167 Below low normal 250-425 (ug/dL) Final Transferrin Sat % 08/14/2023 13:48:47 7 Below low normal 15-55 (%) Final Performing Location LABORATORY [facility] [place] - [address] [place] [address]
--- OUTSIDE RECORDS SUMMARY | 2023-08-21 23:48 | External Medical Summary | Summary of Care ---
Author Name Unknown Organization [facility] Address [address] [place] [address] Phone [phone] Care Team Providers Care Industrial Gas Servicer Supervisor Name Role Phone Bernard Rodirguez MD Primary Care Provider +1- [phone] Reason for Visit * Reason Onset Date Comments Advice 08/08/2023 Encounter Details Date Type Department Care Team (Late st Contact Info) Description 08/08/2023 Telephone [facility] [address] [place] [address] Bernard Rodriguez MD [address] [place] [address] Advice Allergies Active Allergy Reactions Criticality Noted Date Comments Amoxicillin-Pot Clavulanate 08/09/20 15 documented as of this encounter (statuses as of 08/08/2023) Medications Medication Sig Dispensed Refills Start Date End Date Status busPIRone HCl 15 MG Oral Tablet (Buspar)Indications:S tress due to family tension One half to one whole tab by mouth up to three times a day for stress and panic 20 Tab 0 03/07/2021 Active predniSONE 10 MG Oral Tablet (Deltasone) [...] TIMES DAILY 270 Capsule 11 02/03/2023 Active Levothyroxine Sodium 75 MCG Oral TabletIndications:Oth er specified hypothyroidism TAKE 1 TABLET BY MOUTH ONCE DAILY IN THE MORNING AT LEAST 30 MIN BEFORE BREAKFAST OR OTHER MEDS 90 Tablet 1 02/03/2023 Active traZODone HCl 100 MG Oral [...] FOR DIARRHEA 90 Capsule 4 07/21/2023 Active documented as of this encounter (statuses as of 08/08/2023) Active Problems Problem Noted Date Diagnosed Date Ulcerative pancolitis without complication 02/09 Recurrent major depressive disorder, in partial remission 02/09/2021 Other specified hypothyroidism 02/09/2021 Alcohol abuse 12/04/2017 Dupuytren's contracture of hand 12/18/2012 Pruritic disorder 04/22/2008 documented as of this encounter (statuses as of 08/08/2023) Resolved Problems Problem Noted Date Diagnosed Date Resolved Date Toxic effect of venom 04/22/20082017 Overview: ICD-10 update of inactive term documented as of this encounter (statuses as of 08/08/2023) Immunizations Name Administration Dates Next Due COVID-19 [...] drink = 0.6 oz pu re alcohol) Sex and Gender Information Value Date Recorded Sex Assigned at Male 12/23/2019 1:39 PM EDT Gender Identity Male 12/23/2019 1:39 PM EDT Sexual Orientation Straight 12/23/2019 1: 39 PM EDT Job Start Date Occupation Industry Not on file Not on file Not on file documented as of this encounter Miscellaneous Notes * Telephone Encounter - Soledad Richey OSA - 08/08/2023 12:36 PM EDT Please see messages below. FYI * Telephone Encounter - Soledad Richey OSA - 08/08/2023 11:08 AM EDT Patient requesting an appointment as he fell two weeks ago and hit his head. Patient is not feelinggood/nauseous. No available appointments in [place], or . Offered patient to go to [place] or [place]. Patient declined. I stated that the RN here said if he is refusing other locations and CC, then heis to go to the ER. Patient understood and stated he would go to the ER. 08/08/2023 * Telephone Encounter - Sola Mcdaniel OSA - 08/08/2023 10:18 AM EDT No Appointments Available Patient declined appointments?: No What Visit Type is needed? Acute If Acute Visit Type is needed, were surrounding clinics offered to patient (Yes/No)? N/A Was patient offered appointments with other available providers (Yes/No)? N/A See Call Details? (Yes or No): Yes documented in this encounter Plan of Treatment Upcoming Encounters Date Type Department Care Team (Late st Contact Info) Description 10/29/2023 12:20 PM EST Office Visit [facility] [address] [place] [facility] [place] [facility] [place] [phone] Bernard Rodriguez MD [address] [place], [place] [id number] 02/04/2024 8:45 AM EDT Imaging Radiology [facility] [address] [place] [address] Health Maintenance Due Date Last Done Comments [...] Not on filedocumented as of this encounter Care Teams Industrial Gas Servicer Supervisor Relationship Specialty Start Date End Date Bernard Rodriguez MD [address] [facility] [place] [address] PCP - General 06/25/00 documented as of this encounter
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
--- OUTSIDE RECORDS SUMMARY | 2023-08-21 23:48 | External Medical Summary ---
Author Name Unknown Address Unknown Organization [id number]:LABORATORY [facility] [place] - [address] [facility] [address] Laboratory Report Ordering Provider Test Date Status YAEL MORIN 08/14/2023 13:48:47 Final Observation Date Value Abnormality Reference (Units ) Status TSH 08/14/2023 13:48:47 8.50 Above high normal 0. 27-4.20 (uIU/mL) Final Performing Location LABORATORY [facility] - [address] [facility] [address]
--- OUTSIDE RECORDS SUMMARY | 2023-08-21 23:48 | External Medical Summary ---
Author Name Unknown Address Unknown Organization [id number][place] [place] [address] [place] [address] [place] [address] Laboratory Report Ordering Provider Test Date Status PATIENCEYAEL 08/14/2023 13:48:47 Final Observation Date Value Abnormality Reference (Units ) Status BUN 08/14/2023 13:48:47 19 6-20 (mg/dL) Final Creatinine 08/14/2023 13:48:47 0.9 0.6-1.2 (mg/dL) Final Glomerular filtration rate/1.73 sq M.predicted [Volume Rate/Area] in Serum, Plasma or Blood by Creatinine-based formula (CKD-EPI) 08/14/2023 13:48:47 >90 >=60 (mL/min) Final eGFR is calculated based on the CKD-EPI 2020 equation SODIUM 08/14/2023 13:48:47 131 Below low normal 135 -146 (mmol/L) Final Potassium 08/14/2023 13:48:47 4.0 3.5-5.1 (m mol/L) Final Cl 08/14/2023 13:48:47 92 Below low normal 98- 107 (mmol/L) Final CO2 08/14/2023 13:48:47 30 22-32 (mmo l/L) Final Anion gap 08/14/2023 13:48:47 9 7-15 (mmol /L) Final Glucose 08/14/2023 13:48:47 148 Above high normal 70 -120 (mg/dL) Final Calcium 08/14/2023 13:48:47 7.9 Below low normal 8.4 -10.2 (mg/dL) Final Performing Location [facility] [place] [address] [place] [address]
--- OUTSIDE RECORDS SUMMARY | 2023-08-21 23:48 | External Medical Summary ---
Author Name Unknown Address Unknown Organization [id number]:[facility] [place] [address] [place] [address] Laboratory Report Ordering Provider Test Date Status YAEL MORIN 08/14/2023 13:48:47 Final Observation Date Value Abnormality Reference (Units ) Status Vitamin B12 08/14/2023 13:48:47 1373 Above high normal 232-1245 (pg/mL) Final Performing Location LABORATORY [facility] - [address] [place] [address]
--- OUTSIDE RECORDS SUMMARY | 2023-08-21 23:48 | External Medical Summary | Summary of Care ---
Author Name Unknown Organization [facility] Address [address] [place] [address] Phone [phone] Care Team Providers Care Brush Stainer Name Role Phone Bernard Rodriguez MD Primary Care Provider +1- [phone] Reason for Visit * Reason Onset Date Comments Advice 08/08/2023 Encounter Details Date Type Department Care Team (Late st Contact Info) Description 08/08/2023 Telephone [facility] [address] [place] [address] Bernard Rodriguez MD [address] [place] [address] Advice Allergies Active Allergy Reactions [...] encounter Miscellaneous Notes * Telephone Encounter - Bernard Rodriguez MD - 08/08/2023 4:52 PM EDT Agree with ED visit. * Telephone Encounter - Soledad Richey OSA - 08/08/2023 12:36 PM EDT Please see messages below. FYI * Telephone Encounter - Soledad Richey OSA - 08/08/2023 11:08 AM EDT Patient requesting an appointment as he fell two weeks ago and hit his head. Patient is not feelinggood/nauseous. No available appointments in [facility] or . Offered patient to go to [place] or [place]. Patient declined. I stated that the RN [...] Description 10/29/2023 12:20 PM EST Office Visit [facility] [address] [place] [facility] [place] [address] Bernard Rodriguez MD [address] [facility] [place] [facility] [place] [address] 02/04/2024 8:45 AM EDT Imaging Radiology [address] [place] [address] Health Maintenance Due Date Last Done Comments Pneumococcal Vaccine: Pediatrics (0 to 5 Years) and At-Risk Patients (6 to 64 Years) (1 - PCV) 1969 HIV Screening 1978 Cologuard 2008 Fecal Occult Blood Test 2008 Sigmoidoscopy 2008 Zoster Vaccines (1 of 2) 2013 Depression, Most Recent Score >= 10 (will fire each visit until score < 10) 06/14/2021 06/13/2021 COVID-19 Vaccine (3 - 2022- season) 2023 01/04/2021, 12/14/2020 Influenza Vaccine (FLU [...] filedocumented as of this encounter Care Teams Brush Stainer Relationship Specialty Start Date End Date Bernard Rodriguez MD [address] [place] [facility] [place] [address] PCP - General 06/25/00 documented as of this encounter
[2023-08-22] MEDS ORDERED: GABAPENTIN 400 MG CAP PO SCH (05:00)
[2023-08-22] MEDS: LEVOTHYROXINE SODIUM 75 MCG TABLET PO SCH (05:49)
[2023-08-22 06:16] LABS: Hematocrit (blood only) 27.8 % (42.0-52.0); Hemoglobin 9.5 g/dl (14.0-18.0); Mean Corpuscular Hemoglobin 28.4 pg (25.0-34.0); Mean Corpuscular Hgb Conc 34.2 g/dL (32.0-36.0); Mean Corpuscular Volume 83.2 fL (80.0-100.0); Mean Platelet Volume 10.1 fL (9.4-12.4); Platelet Count 120 K/uL (130-400); RDW Coefficient of Variation 15.1 % (11.5-14.5); RDW Standard Deviation 45.4 fL (36.4-46.3); Red Blood Count 3.34 M/uL (4.70-6.10); White Blood Count 7.02 K/ul (4.8-10.8)
[2023-08-22 06:25] LABS: BUN Creatinine Ratio 30.7 (10-20); Calcium 7.8 mg/dl (8.6-10.3); Creatinine Clr Calc Pharmacy 26.9 ml/min; Est GFR (African American) 30.6 ml/min; Est GFR (Non-African American) 26.4 ml/min; Magnesium 2.7 mg/dl (1.7-2.4); Potassium 3.3 mmol/L (3.5-5.1)
[2023-08-22] MEDS: cefTRIAXone SODIUM 2,000 MG in DEXTROSE 5 % MINI-B 50 ML IV SCH (08:25)
--- NOTE | 2023-08-22 08:26 | Gastroenterology Progress Note ---
Date of Service August 22, 2023 Assessment & Plan (1) Cirrhosis: Plan: 58 year old male with UC on PO mesalamine, ETOH abuse and others below admitted with DANI, elevated LFTs, imaging with cirrhosis. - Elevated LFTs - ETOH cessation discussed - CT shows cirrhosis - Follow liver serology - Low DF, 23 - MELD, 30 - No ETOH - No NSAIDs - Less than 2G tylenol if using - Low NA diet, less than 2G sodium - Diagnostic/therapeutic paracentesis - Albumin 25G pre and post - OP EGD - ETOH withdrawal protocol - DANI - Appreciate nephrology evaluation - Ulcerative colitis - Continue home medications - If he has diarrhea, submit stool culture and c.diff - Continue follow up with his established GI team We will sign off. Recall as needed. Thank you for allowing us to participate in the care of this patient. Please call with any acute changes, questions or concerns. Please see addendum below with additional recommendation from my supervising physician. Admission and Anticipated Discharge Date Admission Date: August 20, 2023 Supervising Physician Co-Signing Physician Notes I saw and evaluated the patient. He does appear to be improving from a liver standpoint. As his bilirubin seems to be trending down in the absence we will not recommend any specific medical intervention for the present time. I believe the patient would consider abstinence from alcohol and ultimately referral for transplantation should he go through a treatment program. The patient was advised to follow-up with my partner, Ms. potter in the office as previously scheduled. Call with any additional questions. GI to sign off Subjective Continues to feel improved. 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 Tbili improving. No abd pain. Tolerating PO intake. No nausea, vomiting. We had a discussion about this alcohol use. He has a desire to stop ETOH consumpation. Recognizes the challenges. Review of Systems Review of Systems: All systems reviewed & are unremarkable except as noted in HPI & below Physical Exam Constitutional: WD/WN, vitals as above Respiratory: normal respiratory effort Cardiovascular: Rate/Rhythm: regular rate Gastrointestinal (Abdomen): + moderate distension Skin: no rashes, warm and dry Results & Data Vital Signs (Past 12 Hours) Vital Signs Temp Pulse Pulse Resp BP Pulse Ox O2 Del Method 08/22/23 08:11 36.5 C 62 18 95/61 L 93 Room Air 08/22/23 03:25 36.9 C 67 16 104/63 93 Room Air 08/21/23 23:38 36.9 C 71 17 100/60 92 Room Air Laboratory Results 08/22/23 08/21/23 Range/Units 05:50 12:36 WBC 7.02 (4.8-10.8) K/ul RBC 3.34 L (4.70-6.10) M/uL Hgb 9.5 L (14.0-18.0) g/dl Hct 27.8 L (42.0-52.0) % MCV 83.2 (80.0-100.0) fL MCH 28.4 (25.0-34.0) pg MCHC 34.2 (32.0-36.0) g/dL RDW Std Deviation 45.4 (36.4-46.3) fL RDW Coeff of Bo 15.1 H (11.5-14.5) % Plt Count 120 L (130-400) K/uL MPV 10.1 (9.4-12.4) fL Sodium 133 L (136-145) mmol/L Potassium 3.3 L (3.5-5.1) mmol/L Chloride 100 (98-107) mmol/L Carbon Dioxide 23 (21-32) mmol/L Anion Gap 10 (3-11) BUN 78 H (6-23) mg/dl Creatinine 2.54 H D (0.6-1.4) mg/dl Est Cr Clr Drug Dosing 26.9 ml/min Est GFR ( Amer) 30.6 ml/min Est GFR (Non-Af Amer) 26.4 ml/min BUN/Creatinine Ratio 30.7 H (10-20) Glucose 109 H (70-99(Fasting)) mg/dl Calcium 7.8 L (8.6-10.3) mg/dl Magnesium 2.7 H (1.7-2.4) mg/dl Total Bilirubin 3.6 H (0.2-1.0) mg/dl Direct Bilirubin 2.3 H (0-0.2) mg/dl AST 114 H (13-39) U/L ALT 17 (7-52) U/L Alkaline Phosphatase 285 H (34-104) U/L Total Protein 6.0 (6.0-8.3) gm/dl Albumin 2.3 L (3.4-5.0) gm/dl (1) Cirrhosis Ascites presence: unspecified Hepatic cirrhosis type: unspecified hepatic cirrhosis Qualified Code(s): K74.60 - Unspecified cirrhosis of liver
[2023-08-22] MEDS: FOLIC ACID 1 MG TAB PO SCH (08:27)
[2023-08-22] MEDS: HEPARIN SOD 5,000 UNIT/0.5 ML VIAL SQ SCH ×2 (08:27→19:33)
[2023-08-22] MEDS: THIAMINE HCL 100 MG TAB PO SCH (08:27)
--- NOTE | 2023-08-22 08:47 | Electrocardiogram Report ---
Test Reason : Blood Pressure : / mmHG Vent. Rate : 064 BPM Atrial Rate : 064 BPM P-R Int : 128 ms QRS Dur : 100 ms QT Int : 484 ms P-R-T Axes : 032 012 -11 degrees QTc Int : 499 ms Normal sinus rhythm Diffuse Nonspecific ST and T wave abnormality Prolonged QT Abnormal ECG When compared with ECG of 20-AUG-2023 02:43, No significant change was found Confirmed by Greg Domingo ([id number]) on 08/22/2023 8:46:58 AM Referred By: REFERRED SELF Confirmed By:Greg Domingo
[2023-08-22] MEDS ORDERED: POTASSIUM CHLORIDE CRTAB 20 MEQ TABCR PO ONE (09:57)
--- NOTE | 2023-08-22 11:54 | Nephrology Progress Note ---
Date of Service August 22, 2023 Assessment & Plan (1) DANI (acute kidney injury): Plan: further improving nonoliguric stage 3 DANI w/ baseline creatinine 1.0 in early August 2023 and presenting creatinine 5.3. creat down to 3.4 this am. kidneys unremarkable on renal imaging. his sbp was in 90-100s in ER earlier this month and on prior [facility] encounter in Sep 2021; remaining in that range now. at least some prerenal component; concern he will ultimately prove to be total body overloaded and intravascularly dry. CK wnl. -for now no diuretics -encourage high potassium snacks/drinks -encourage po fluids >imperative that he have no more EtOH and no more NSAIDS now or after d/c; reinforced this w/ pt and family -f/u on GI recs -had 20 mEq po K today -daily bmp -continue strict I/O -continue nephrotoxin avoidance Will sign off NEPHRO D/C RECOMMENDATIONS -complete/total abstention from EtOH and NSAIDS -no more than 2 gm acetaminophen/day if needed -hospital d/c appt in nephro clinic victorina Melgar MD in 2-4 wks to f/u Stage 3 DANI; needs bmp, ACR, mag to be ordered by neph RN and drawn up to 3 days before appt Admission and Anticipated Discharge Date Admission Date: August 20, 2023 Subjective seen on rounds at about 11 AM. ambulated w/ walker today. very thirsty. cont to say he'll avoid all EtOH. no sob, no n/v, no voiding c/o Review of Systems 2 Review of Systems: All systems reviewed & are unremarkable except as noted in Subjective Physical Exam 2 Constitutional: well developed and + malnourished; no acute distress Eyes: EOM intact bilaterally ENMT: Ears: no external ear abnormality Nose: no external nose abnormality Mouth: + dry oral mucous membranes Neck: no nuchal rigidity Respiratory: normal respiratory effort Auscultation: + diminished lung sounds Cardiovascular: Rate/Rhythm: regular rate and regular rhythm Extremities: + edema (trace+ BL ankle) Gastrointestinal (Abdomen): Inspection/Auscultation: + abdomen distended and normal bowel sounds Percussion/Palpation: abdomen soft and + ascites; abdomen nontender Musculoskeletal: Extremities: strength 5/5 throughout Skin: no rashes, warm and dry Psychiatric: Orientation: alert, oriented to person and oriented to place I nsight: + limited insight Judgment: + limited judgement Results & Data Vital Signs (Past 12 Hours) Vital Signs Temp Pulse Pulse Resp BP Pulse Ox O2 Del Method 08/22/23 08:11 36.5 C 62 18 95/61 L 93 Room Air 08/22/23 08:00 65 08/22/23 08:00 Room Air 08/22/23 03:25 36.9 C 67 16 104/63 93 Room Air Laboratory Results 08/22/23 05:50 08/22/23 05:50
--- NOTE | 2023-08-22 18:03 | Hospitalist Progress Note ---
Date of Service August 22, 2023 Assessment & Plan (1) DANI (acute kidney injury): Plan: 58-year-old male with past med significant for ulcerative pancolitis, Dupuytren's contracture of hand, depression, alcohol abuse presents with weakness, poor appetite and found to DANI and elevated LFTs. DANI In setting of Volume overload Chronic outlet obstruction DD: HRS --CT ABD:Cardiomegaly with pulmonary edema, small pleural effusions and bibasilar consolidation favoring atelectasis. Hepatosplenomegaly with hepatic steatosis and probable cirrhosis. Moderate abdominopelvic ascites with anasarca. Fluid-filled loops of large and small bowel are noted with mild diffuse large bowel wall thickening, likely secondary to portal colopathy. A nonspecific colitis could appear similarly. Prostatomegaly with evidence of chronic outlet obstruction. No hydronephrosis. -- Bladder scan as needed Consider Cordova catheter if noted to have retention Avoid nephrotoxic agents as able --Cr:5.38>4.31>3.4>2.5 Receiving gentle IV fluids Appreciate nephrology input Renal function slowly improving No indication for dialysis currently Likely plan to discharge tomorrow if renal function continues to improve Alcohol use disorder Continue gabapentin protocol Continue Thiamine, Folic acid Monitor for withdrawal Currently no signs of alcohol withdrawal Hyponatremia Likely multifactorial secondary to volume overload, no alcohol use Sodium 133 today Monitor sodium levels Abnormal urinalysis R/O UTI Urine Culture --- negative Discontinue Rocephin Alcoholic cirrhosis Hepatosplenomegaly on CT Ascites Transaminitis Discriminant function index is 23 Hepatitis panel pending Counseled to quit alcohol use Low-sodium diet Outpatient EGD Appreciate GI input Monitor LFTs Needs follow-up with GI upon discharge Abnormal thyroid function test H/O hypothyroidism Elevated TSH, low free T4 ? Compliance Continue levothyroxine Will need repeat thyroid function test Mild elevation troponin Mostly from renal dysfunction Follow serial enzymes Anemia of chronic disease Thrombocytopenia Serum iron levels low Consider starting on iron supplements FOBT + Hb 9.5 today History of ulcerative colitis Continue home meds Depression Was on Zoloft and trazodone Will hold trazodone and Zoloft for now for QT prolongation Prolonged QTc Avoid QT prolonging drugs Follow repeat EKG DVT Px: Heparin SQ Monitor platelets Code Status Full code Disposition Home as able Admission and Anticipated Discharge Date Admission Date: August 20, 2023 Subjective Patient is seen and examined at bedside no new complaints Denies any chest pain, dyspnea, abd pain Renal function continues to improve Review of Systems Review of Systems: All systems reviewed & are unremarkable except as noted in Subjective Physical Exam Physical Exam: Physical Exam: Vitals signs as noted above General Appearance:Thin, frail, chronic ill appearing Head: normocephalic, Atraumatic Eyes: normal inspection, EOMI Neck: supple, Trachea midline Respiratory/Chest: Normal breath sounds, CTA, No accessory muscle use Cardiovascular: S1, S2, No murmur Abdomen/GI:Soft, Non tender, +distended, Bowel sounds present Extremities/Musculoskeletal:normal inspection, 1+ pedal edema Neurologic/Psych:AAOX3, grossly no focal neurological deficits Skin: normal color, warm Results & Data Results & Data Vital Signs (Past 12 Hours) Vital Signs Temp Pulse Pulse Resp BP Pulse Ox O2 Del Method 08/22/23 16:43 36.8 C 67 18 107/69 93 Room Air 08/22/23 16:00 66 08/22/23 12:51 36.7 C 64 20 100/64 97 Room Air 08/22/23 08:11 36.5 C 62 18 95/61 L 93 Room Air 08/22/23 08:00 65 08/22/23 08:00 Room Air Laboratory Results Short CBC 08/22/23 Range/Units 05:50 WBC 7.02 (4.8-10.8) K/ul Hgb 9.5 L (14.0-18.0) g/dl Hct 27.8 L (42.0-52.0) % Plt Count 120 L (130-400) K/uL BMP 08/22/23 05:50 Sodium 133 L Potassium 3.3 L Chloride 100 Carbon Dioxide 23 BUN 78 H Creatinine 2.54 H D Glucose 109 H Calcium 7.8 L
[2023-08-23] MEDS ORDERED: GABAPENTIN 100 MG CAP PO SCH (05:00)
[2023-08-23 05:39] LABS: Albumin Level 2.2 gm/dl (3.4-5.0); Bilirubin Direct 1.5 mg/dl (0-0.2); Bilirubin,Total 2.9 mg/dl (0.2-1.0); Potassium 3.6 mmol/L (3.5-5.1)
[2023-08-23 05:45] LABS: BUN Creatinine Ratio 36.2 (10-20); Creatinine Clr Calc Pharmacy 43.1 ml/min; Est GFR (African American) 52.3 ml/min; Est GFR (Non-African American) 45.1 ml/min; Total Protein 6.2 gm/dl (6.0-8.3)
[2023-08-23] MEDS: LEVOTHYROXINE SODIUM 75 MCG TABLET PO SCH (06:34)
[2023-08-23] MEDS: HEPARIN SOD 5,000 UNIT/0.5 ML VIAL SQ SCH (07:28)
[2023-08-23] MEDS: FOLIC ACID 1 MG TAB PO SCH (07:28)
[2023-08-23] MEDS: THIAMINE HCL 100 MG TAB PO SCH (07:28)
--- NOTE | 2023-08-23 14:12 | Hospitalist Progress Note ---
Date of Service August 23, 2023 Assessment & Plan (1) DANI (acute kidney injury): Plan: 58-year-old male with past med significant for ulcerative pancolitis, Dupuytren's contracture of hand, depression, alcohol abuse presents with weakness, poor appetite and found to DANI and elevated LFTs. DANI In setting of Volume overload Chronic outlet obstruction DD: HRS --CT ABD:Cardiomegaly with pulmonary edema, small pleural effusions and bibasilar consolidation favoring atelectasis. Hepatosplenomegaly with hepatic steatosis and probable cirrhosis. Moderate abdominopelvic ascites with anasarca. Fluid-filled loops of large and small bowel are noted with mild diffuse large bowel wall thickening, likely secondary to portal colopathy. A nonspecific colitis could appear similarly. Prostatomegaly with evidence of chronic outlet obstruction. No hydronephrosis. -- Bladder scan as needed Consider Cordova catheter if noted to have retention Avoid nephrotoxic agents as able --Cr:5.38>4.31>3.4>2.5>1.6 Receiving gentle IV fluids Appreciate nephrology input Renal function slowly improving Plan to discharge home today Alcohol use disorder Continue gabapentin protocol Continue Thiamine, Folic acid Monitor for withdrawal Currently no signs of alcohol withdrawal Hyponatremia Likely multifactorial secondary to volume overload, alcohol use Sodium 133 today Monitor sodium levels Abnormal urinalysis Ruled out UTI Urine Culture: negative Discontinue Rocephin Alcoholic cirrhosis Hepatosplenomegaly on CT Ascites Transaminitis Discriminant function index is 23 Hepatitis panel pending Counseled to quit alcohol use Low-sodium diet Outpatient EGD Appreciate GI input Monitor LFTs Needs follow-up with GI upon discharge Abnormal thyroid function test H/O hypothyroidism Elevated TSH, low free T4 ? Compliance Continue levothyroxine Will need repeat thyroid function test Mild elevation troponin Mostly from renal dysfunction Follow serial enzymes Anemia of chronic disease Thrombocytopenia Serum iron levels low Consider starting on iron supplements FOBT + Hb 9.5 History of ulcerative colitis Continue home meds Depression Was on Zoloft and trazodone Prolonged QTc Avoid QT prolonging drugs QTC better on repeat EKG Advised to follow-up with primary care physician for further adjustment of mood disorder medications as outpatient DVT Px: Heparin SQ Monitor platelets Code Status Full code Disposition Home with Home Health Admission and Anticipated Discharge Date Admission Date: August 20, 2023 Subjective Patient is seen and examined at bedside Feels well No complaints Denies any chest pain, dyspnea, abd pain Plan to discharge home today Review of Systems Review of Systems: All systems reviewed & are unremarkable except as noted in Subjective Physical Exam Physical Exam: Physical Exam: Vitals signs as noted above General Appearance:Thin, frail, chronic ill appearing Head: normocephalic, Atraumatic Eyes: normal inspection, EOMI Neck: supple, Trachea midline Respiratory/Chest: Normal breath sounds, CTA, No accessory muscle use Cardiovascular: S1, S2, No murmur Abdomen/GI:Soft, Non tender, +distended, Bowel sounds present Extremities/Musculoskeletal:normal inspection, 1+ pedal edema Neurologic/Psych:AAOX3, grossly no focal neurological deficits Skin: normal color, warm Results & Data Results & Data Vital Signs (Past 12 Hours) Vital Signs Temp Pulse Pulse Resp BP Pulse Ox O2 Del Method 08/23/23 11:57 36.6 C 60 18 127/75 94 Room Air 08/23/23 08:00 64 08/23/23 08:00 Room Air 08/23/23 07:09 36.7 C 62 19 100/63 94 Room Air 08/23/23 03:01 36.8 C 71 18 107/63 92 Room Air Laboratory Results [facility] 08/23/23 04:39 Sodium 133 L Potassium 3.6 Chloride 100 Carbon Dioxide 25 BUN 59 H Creatinine 1.63 H D Glucose 103 H Calcium 8.0 L Liver Function 08/23/23 Range/Units 04:39 Total Bilirubin 2.9 H (0.2-1.0) mg/dl Direct Bilirubin 1.5 H (0-0.2) mg/dl AST 145 H (13-39) U/L ALT 21 (7-52) U/L Alkaline Phosphatase 457 H (34-104) U/L Albumin 2.2 L (3.4-5.0) gm/dl
--- NOTE | 2023-08-23 14:21 | Discharge Summary ---
Date of Service August 23, 2023 Admission HPI Per Admitting Provider 58-year-old male with past med significant for ulcerative pancolitis, Dupuytren's contracture of hand, depression, alcohol abuse presents with weakness, poor appetite and found to DANI and elevated LFTs. Patient states he used to drink alcohol 10-12 beers daily but he did not drink for 10 days. Says he lives with his family. Denies any headache. Vision is okay. No headaches. No runny nose. Has some sore throat. Has mild cough. Denies fevers. No chest pain. No shortness of breath. No nausea. Has mild abdominal discomfort. Normal bowel and bladder movements. States is ambulating okay at home. Hem odynamics are stable. Past medical history. As mentioned above Past surgical history. Colonoscopy. Laparoscopic inguinal hernia repair Social history. . Quit smoking 20 years ago. Used to smoke heavily 2 packs a day. Alcohol drinks 10-12 beers daily but states did not drink in last 10 days. No drug use. Family history. Son has ulcerative colitis Admission Exam Per Admitting Provider General- Not in distress. Head- atraumatic Eyes- PERRL. ENT- oropharynx clear Neck- supple, no JVD. Lungs- clear to auscultation no wheezing or crackles. Heart- regular rhythm; no murmur, no gallop. Abdomen- normal bowel sounds, soft, nontender, mild distension. Extremities- no pretibial edema, no erythema seen. Neuro- alert, oriented x 3; PERRL, no facial palsy; no dysarthria; moves extremities. Skin- warm & dry Principal Diagnosis Acute Kidney Injury Volume overload Alcohol use disorder Hyponatremia Alcoholic cirrhosis Discharge Data Allergies Allergy/AdvReac Type Severity Reaction Status Date / Time amoxicillin Allergy Intermediate Rash Verified 08/08/23 16:57 Consultations 08/20/23 02:02 ED Decision to Admit Stat 08/20/23 08:33 Consult Gastroenterology Routine Consult Nephrology Routine Procedures Performed Laboratory Results WBC 7.02 K/ul (4.8-10.8) 08/22/23 05:50 RBC 3.34 M/uL (4.70-6.10) L 08/22/23 05:50 Hgb 9.5 g/dl (14.0-18.0) L 08/22/23 05:50 Hct 27.8 % (42.0-52.0) L 08/22/23 05:50 MCV 83.2 fL (80.0-100.0) 08/22/23 05:50 MCH 28.4 pg (25.0-34.0) 08/22/23 05:50 MCHC 34.2 g/dL (32.0-36.0) 08/22/23 05:50 RDW Std Deviation 45.4 fL (36.4-46.3) 08/22/23 05:50 RDW Coeff of Bo 15.1 % (11.5-14.5) H 08/22/23 05:50 Plt Count 120 K/uL (130-400) L 08/22/23 05:50 MPV 10.1 fL (9.4-12.4) 08/22/23 05:50 Immature Gran % (Auto) 2.2 % 08/20/23 09:29 Neut % (Auto) 85.6 % 08/20/23 09:29 Lymph % (Auto) 6.6 % 08/20/23 09:29 [place] % (Auto) 4.7 % 08/20/23 09:29 Eos % (Auto) 0.5 % 08/20/23 09:29 Baso % (Auto) 0.4 % 08/20/23 09:29 Neut # (Auto) 6.73 K/uL (1.40-6.50) H 08/20/23 09:29 Lymph # (Auto) 0.52 K/uL (1.20-3.40) L 08/20/23 09:29 [place] # (Auto) 0.37 K/uL (0.11-0.59) 08/20/23 09:29 Eos # (Auto) 0.04 K/uL (0.00-0.50) 08/20/23 09:29 Baso # (Auto) 0.03 K/uL (0.00-0.20) 08/20/23 09:29 Immature Gran # (Auto) 0.17 K/uL (0.01-0.20) 08/20/23 09:29 Target Cells 1+ 08/20/23 09:29 Echinocytes 1+ 08/20/23 09:29 PT 15.8 Seconds (9.0-12.0) H 08/20/23 11:16 INR 1.5 (0.9-1.1) H 08/20/23 11:16 Sodium 133 mmol/L (136-145) L 08/23/23 04:39 Potassium 3.6 mmol/L (3.5-5.1) 08/23/23 04:39 Chloride 100 mmol/L (98-107) 08/23/23 04:39 Carbon Dioxide 25 mmol/L (21-32) 08/23/23 04:39 Anion Gap 8 (3-11) 08/23/23 04:39 BUN 59 mg/dl (6-23) H 08/23/23 04:39 Creatinine 1.63 mg/dl (0.6-1.4) H D 08/23/23 04:39 Est Cr Clr Drug Dosing 43.1 ml/min 08/23/23 04:39 Est GFR ( Amer) 52.3 ml/min 08/23/23 04:39 Est GFR (Non-Af Amer) 45.1 ml/min 08/23/23 04:39 BUN/Creatinine Ratio 36.2 (10-20) H 08/23/23 04:39 Glucose 103 mg/dl (70-99(Fasting)) H 08/23/23 04:39 Calcium 8.0 mg/dl (8.6-10.3) L 08/23/23 04:39 Phosphorus 5.5 mg/dl (2.5-4.9) H 08/21/23 06:04 Magnesium 2.7 mg/dl (1.7-2.4) H 08/22/23 05:50 Iron 12 mcg/dl (35-175) L 08/20/23 11:16 Ferritin 832.5 ng/ml (8-388) H 08/20/23 11:16 Total Bilirubin 2.9 mg/dl (0.2-1.0) H 08/23/23 04:39 Direct Bilirubin 1.5 mg/dl (0-0.2) H 08/23/23 04:39 AST 145 U/L (13-39) H 08/23/23 04:39 ALT 21 U/L (7-52) 08/23/23 04:39 Alkaline Phosphatase 457 U/L (34-104) H 08/23/23 04:39 Total Creatine Kinase 20 U/L (30-223) L 08/21/23 06:04 Troponin I High Sens 24.8 pg/ml (0-20) H 08/19/23 21:15 Total Protein 6.2 gm/dl (6.0-8.3) 08/23/23 04:39 Albumin 2.2 gm/dl (3.4-5.0) L 08/23/23 04:39 Globulin 4.3 gm/dl (2.5-4.0) H 08/19/23 21:15 Albumin/Globulin Ratio 0.7 (0.9-2) L 08/19/23 21:15 Lipase 99 U/L (11-82) H 08/19/23 21:15 Vitamin B12 > 1500 pg/ml (180-914) H 08/21/23 06:04 Folate 8.43 ng/ml (>5.38) 08/21/23 06:04 TSH 9.846 uIu/ml (0.300-4.500) H 08/20/23 09:29 Free T4 0.45 ng/dl (0.61-1.60) L 08/20/23 09:29 Urine Color Dark Yellow 08/19/23 21:40 Urine Appearance Cloudy (Clear) A 08/19/23 21:40 Urine pH 5.0 (4.5-7.5) 08/19/23 21:40 Ur Specific Dillon 1.017 (1.000-1.030) 08/19/23 21:40 Urine Protein Trace (Negative) H 08/19/23 21:40 Urine Glucose (UA) Negative (Negative) 08/19/23 21:40 Urine Ketones Negative (Negative) 08/19/23 21:40 Urine Blood Negative (Negative) 08/19/23 21:40 Urine Nitrite Positive (Negative) A 08/19/23 21:40 Urine Bilirubin 1+ (Negative) H 08/19/23 21:40 Urine Urobilinogen Negative (Negative) 08/19/23 21:40 Ur Leukocyte Esterase Negative (Negative) 08/19/23 21:40 Urine WBC (Auto) 1-5 /hpf (0-5) 08/19/23 21:40 Urine RBC (Auto) 0-4 /hpf (0-4) 08/19/23 21:40 U Hyaline Cast (Auto) 1-5 /lpf (0-5) 08/19/23 21:40 U Epithel Cells (Auto) 0-5 /lpf (0-5) 08/19/23 21:40 Urine Bacteria (Auto) 1+ (Negative) H 08/19/23 21:40 Urine Mucus Present (None Prsent) A 08/19/23 21:40 Urine Yeast Not Reportable 08/19/23 21:40 Stool Occult Bld Scrn Positive (Negative) A 08/22/23 Unknown Impressions Chest X-Ray 08/19/23 23:08 XR chest 1V portable HISTORY: 58 years-old Male weak acute weakness COMPARISON: 08/08/2023 TECHNIQUE: AP view of the chest FINDINGS: Cardiac silhouette is enlarged. Mild subsegmental bibasilar densities. No pneumothorax. Trace pleural effusions. Degenerative changes of the shoulders and spine. IMPRESSION: 1. Mild linear bibasilar densities favor atelectasis. 2. Trace pleural effusions. ACT 112: Negative or not required by law. The above report was generated using voice recognition software. It may contain grammatical, syntax or spelling errors. Electronically signed by: Tito Gaona M.D. 08/20/2023 6:[address] 08/19/23 23:12 Exam(s): CT HEAD Without Contrast EXAM: CT Head Without Intravenous Contrast CLINICAL HISTORY: Reason for exam: weak. TECHNIQUE: Axial computed tomography images of the head/brain without intravenous contrast. Automated exposure control was utilized for the study. A dose lowering technique was utilized adhering to the principles of ALARA. COMPARISON: No relevant prior studies available. FINDINGS: No acute intracranial hemorrhage. No midline shift or mass effect. The territorial meraz-white matter differentiation is maintained throughout. Age-related cerebral volume loss. Periventricular and subcortical white matter hypoattenuation, consistent with chronic microangiopathy. The visualized orbits appear grossly unremarkable. The calvarium is intact. The visualized paranasal sinuses and mastoid air cells are grossly clear. IMPRESSION: No acute intracranial hemorrhage, midline shift, or mass effect. Electronically signed by: Cruz Mueller MD 08/20/23 00:57 AM Abdomen/Pelvis CT 08/20/23 08:[address] WITHOUT CONTRAST CT DOSE: 676.13 mGy.cm HISTORY: Acute kidney injury with elevated LFTs. dani, elevated lft TECHNIQUE: Multiaxial CT images of the abdomen and pelvis were performed without contrast. A dose lowering technique was utilized adhering to the principles of ALARA. COMPARISON STUDY: 08/19/2023, 08/06/2018. FINDINGS: Cardiomegaly with coronary artery calcifications. Small pleural effusions. Pulmonary edema with bibasilar consolidation. No free air. Limited exam without the use of IV contrast. The spleen is enlarged measuring 16.4 cm in length. Moderately atrophic pancreas. Unremarkable adrenal glands. Unchanged ga llbladder wall thickening. Mild hepatic steatosis. The liver measures up to 18 cm in length. Mild marginal nodularity of the liver. Unchanged periportal lymphadenopathy. Unremarkable kidneys. No hydronephrosis. Circumferential urinary bladder wall thickening. Prostatomegaly. Atherosclerosis of the aorta. Small fluid-filled left femoral hernia on image 336. No bowel obstruction. Moderate abdominopelvic ascites. Mild wall thickening throughout the majority of the large bowel. Fluid- filled appendix measures up to 9 mm and contains hyperdense foci without acute inflammation. No acute fracture. Severe intervertebral disc space narrowing with endplate irregularity at L3-L4. Mild generalized body wall edema. IMPRESSION: 1. Stable exam from the study obtained 12 hours earlier. Cardiomegaly with pulmonary edema, small pleural effusions and bibasilar consolidation favoring atelectasis. 2. Hepatosplenomegaly with hepatic steatosis and probable cirrhosis. 3. Moderate abdominopelvic ascites with anasarca. 4. Fluid-filled loops of large and small bowel are noted with mild diffuse large bowel wall thickening, likely secondary to portal colopathy. A nonspecific colitis could appear similarly. 5. Prostatomegaly with evidence of chronic outlet obstruction. No hydronephrosis. 6. Additional findings as above. ACT 112: Negative or not required by law. The above report was generated using voice recognition software. It may contain grammatical, syntax or spelling errors. Dictated: 08/20/2023 11:07 AM Transcribed: 08/20/2023 11:45 AM Toni [id number] [email or web address] Electronically signed by: Tito Gaona M.D. 08/20/2023 12:22 PM Ordered Studies 08/19/23 23:08 CT abd pelvis wo con Stat 08/19/23 23:12 CT head/brain wo con Stat 08/20/23 08:33 CT Abd and Pelvis [CT abd pelvis wo con] Urgent Hospital Course (1) DANI (acute kidney injury): 58-year-old male with past med significant for ulcerative pancolitis, Dupuytren's contracture of hand, depression, alcohol abuse presents with weakness, poor appetite and found to DANI and elevated LFTs. DANI In setting of Volume overload Chronic outlet obstruction DD: HRS --CT ABD:Cardiomegaly with pulmonary edema, small pleural effusions and bibasilar consolidation favoring atelectasis. Hepatosplenomegaly with hepatic steatosis and probable cirrhosis. Moderate abdominopelvic ascites with anasarca. Fluid-filled loops of large and small bowel are noted with mild diffuse large bowel wall thickening, likely secondary to portal colopathy. A nonspecific colitis could appear similarly. Prostatomegaly with evidence of chronic outlet obstruction. No hydronephrosis. -- Bladder scan as needed Consider Cordova catheter if noted to have retention Avoid nephrotoxic agents as able --Cr:5.38>4.31>3.4>2.5>1.6 Receiving gentle IV fluids Appreciate nephrology input Renal function slowly improving Plan to discharge home today Alcohol use disorder Continue gabapentin protocol Continue Thiamine, Folic acid Monitor for withdrawal Currently no signs of alcohol withdrawal Hyponatremia Likely multifactorial secondary to volume overload, alcohol use Sodium 133 today Monitor sodium levels Abnormal urinalysis Ruled out UTI Urine Culture: negative Discontinue Rocephin Alcoholic cirrhosis Hepatosplenomegaly on CT Ascites Transaminitis Discriminant function index is 23 Hepatitis panel pending Counseled to quit alcohol use Low-sodium diet Outpatient EGD Appreciate GI input Monitor LFTs Needs follow-up with GI upon discharge Abnormal thyroid function test H/O hypothyroidism Elevated TSH, low free T4 ? Compliance Continue levothyroxine Will need repeat thyroid function test Mild elevation troponin Mostly from renal dysfunction Follow serial enzymes Anemia of chronic disease Thrombocytopenia Serum iron levels low Consider starting on iron supplements FOBT + Hb 9.5 History of ulcerative colitis Continue home meds Depression Was on Zoloft and trazodone Prolonged QTc Avoid QT prolonging drugs QTC better on repeat EKG Advised to follow-up with primary care physician for further adjustment of mood disorder medications as outpatient DVT Px: Heparin SQ Monitor platelets Code Status Full code Disposition Home with Home Health Total Time Total Time Spent Total Time Spent (In Minutes): 54 minutes Discharge Plan Discharge Items Patient Disposition: Home - Home Health Services Reason For Visit: DANI WEAKNESS Discharge Diagnosis: Acute Kidney Injury Volume overload Alcohol use disorder Hyponatremia Alcoholic cirrhosis Activity: Per Instructions section Exercise/Sports: Gradually increase as tolerated Non-emergency contact: Primary Care Provider, Radio Producer and Firer Helper Call non-emergency contact if: you have any medication questions, your symptoms worsen, your pain is concerning for you and you have a fever Follow-up/Referrals: Bernard Rodriguez MD [Primary Care Provider] - Diet: Heart Healthy Diet Texture: Easy to Chew Addtl Attending Provider Instructions: Follow-up with your primary care physician in 1 week Follow-up with your infection control preventionist in 2-4 weeks with repeat blood test (nephrology clinic at [facility]) Follow-up with your emergency operator Dr. Persaud as scheduled --- Quit drinking alcohol as advised --Your serological test for liver disease is pending at the time of discharge. Follow-up with your physician for results. --Get blood test (thyroid function test: TSH, free T4) in 4 weeks and discussed with the physician for adjustment of levothyroxine dose as needed. --Discuss with your primary care physician/psychiatrist for adjustment of your medications (sertraline, trazodone) given EKG changes as advised. Do not take group of medications belonging to NSAIDs group -can cause worsening of your kidney function. List Of these medications includes but not limited to: Diclofenac Ibuprofen, Motrin, Advil Toradol,ketorolac Naproxen, Aleve, Naprosyn When buying [id number] pain medications please consult with pharmacy if you are not sure regarding ingredients, as a lot of the pain medications have combination of NSAIDs. Seek immediate medical attention if your symptoms reoccur or worsen Please take all medications as instructed on discharge list below. Please call if you have any questions or problems. You can reach a [facility] hospitalist on duty at [facility] 24 hours a day by calling [phone] Pending Studies at Discharge: Yes Studies:: Serological tests for liver disease Stand-Alone Forms: My [facility] [employer], Smoking Cessation Medications and DC Order Prescriptions: New thiamine HCl (vitamin B1) 100 mg Tablet 100 mg PO DAILY Qty: 30 0RF folic acid 1 mg Tablet 1 mg PO DAILY Qty: 30 0RF Continued sertraline 100 mg tablet 150 mg PO QAM loperamide 2 mg capsule 2 mg PO TID PRN (Reason: Diarrhea) levothyroxine 75 mcg tablet 75 mcg PO DAILYBB trazodone 100 mg tablet 100 mg PO HS balsalazide 750 mg capsule 2,250 mg PO TID Discontinued naproxen sodium [Aleve] 220 mg Tablet 440 mg PO BID PRN (Reason: Pain) Discharge Orders: Discharge Order (Routine); Ordered 08/23/23 Ordered By: Volodymyr Herring Admission Data Admit Date/Time: 08/20/23 05:03 Attending Provider: Volodymyr Herring Admit Provider: Enoch Hermosillo Primary Care Provider: Bernard Rodriguez Other Providers: Bert Edouard; Cherrie Delgado; Librado Zelaya; Harini Witt; Isela Oconnor; Ju Alves; Gunjan Good; Wilfredo Carpenter; Eliseo Linn; Nahomy Persaud; Jennifer Headley; Dorian Suresh; Sergio Pompa; Radha Workman; Rhianna De; Chanell Madison; Diana Hong; Amber Collier; Reg Landeros; Francois Marcial; Edith Aguilar; Chapis Crane Jr; [facility]
--- NOTE | 2023-08-25 10:43 | Coding Query ---
CODING QUERY To promote full compliance with coding requirements relating to patient care, provider participation is requested in all cases of baby counselor uncertainty. Please assist us with the question(s) below: Coding Question(s): There is documentation, starting on the 08/20 Hospitalist Progress Note and through the Discharge Summary, of, "DD: HRS". Please specify below, in your clinical opinion, regarding DD: HRS: ( ) This means Differential Diagnosis of HRS: Please Specify the meaning of HRS and if it was POA or Not POA: ( ) HRS means Hepatorenal Syndrome: ( ) Present on admission ( x ) Not Present on admission ( ) Other: Please Specify ( ) HRS means Other: Please Specify : ( ) Present on admission ( ) Not Present on admission ( ) Other: Please Specify ( ) This means Other: Please Specify: : ( ) Present on admission ( ) Not Present on admission ( ) Other: Please Specify ( x ) This was either Ruled-Out or not monitored/evaluated/treated during this admission Physician's Response(s): Thank you Rachel Arnold Principal Diagnosis: "that condition established after study, to be chiefly responsible for occasioning the admission of the patient to the hospital for care." Co-Existing Principal Diagnosis: "when two or more diagnoses equally meet the criteria for principal diagnosis as determined by the circumstances of admission, diagnostic work up, and/or therapy provided, and the Alphabetic Index, Tabular List, or another coding guideline does not provide sequencing direction, any one of the diagnoses may be sequenced first." "When the physician has documented what appears to be a current diagnosis in the body of the record, but has not included the diagnosis in the final diagnostic statement, the physician should be asked whether the diagnosis should be added." (Source [facility]oding [facility] 2 QTR90. p3-4) EMERSON
[2023-08-27 16:28] LABS: Anti Mitochondrial Antibody NEGATIVE (NEGATIVE); Anti Nuclear Antibody Screen NEGATIVE (NEGATIVE); CMV IgG Antibody >10.00 U/mL; CMV IgM Antibody <30.00 AU/mL; HBSAG NON-REACTIVE (NON-REACTIVE); Hepatitis A Antibody IgM NON-REACTIVE (NON-REACTIVE); Hepatitis B Core Antibody IgM NON-REACTIVE (NON-REACTIVE); Smooth Muscle Antibody POSITIVE (NEGATIVE); Transglutaminase, Tissue IgA 1.8 U/mL
== END 2023-08-23 15:13 | disposition home health service (06) | DRG 683 ==
LOC: ED 20:44 → SUATTDRO 08-20 05:03 → EDINP 08-20 05:03 → 4W 08-20 07:37

== ENCOUNTER 2023-10-04 20:30 | Observation (INO) ==
--- OUTSIDE RECORDS SUMMARY | 2023-10-04 20:35 | External Medical Summary | Summary of Care ---
Author Name Unknown Organization [facility] Address [address] [place] [address] Phone [phone] Care Team Providers Care Job Spotter Name Role Phone Bernard Rodriguez MD Primary Care Provider [phone]- [phone] Reason for Visit * Reason Onset Date Comments Advice 10/03/2023 Encounter Details Date Type Department Care Team (Late st Contact Info) Description 10/03/2023 Telephone Nephrology, [address] [address] Services, Scheduling [address] [place] [address] Advice Allergies Active Allergy Reactions Criticality Noted Date Comments Amoxicillin-Pot Clavulanate 08/09/20 15 documented as of this encounter (statuses as of 10/03/2023) Medications Medication Sig Dispensed Refills Start Date End Date Status Balsalazide Disodium 750 MG Oral CapsuleIndications:Ul cerative colitis with complication, unspecified location (HCC) TAKE 3 CAPSULES BY MOUTH THREE TIMES DAILY 270 Capsule 11 02/03/2023 Active Loperamide HCl 2 MG Oral Capsule (Imodium) TAKE 1 CAPSULE BY MOUTH THREE TIMES DAILY NEEDED FOR DIARRHEA 90 Capsule 4 07/21/2023 Active Levothyroxine Sodium 75 MCG Oral TabletIndications:Oth er specified hypothyroidism TAKE 1 TABLET BY MOUTH ONCE DAILY IN THE MORNING AT LEAST 30 MINUTES PRIOR TO BREAKFAST OR OTHER MEDS 90 Tablet 0 08/09/2023 Active Sertraline HCl 50 MG Oral Tablet (Zoloft)Indications:R ecurrent major depressive disorder, in partial remission (HCC) Take 1 Tablet by mouth in the morning. 30 Tablet 1 08/27/2023 Active traZODone HCl 50 MG Oral Tablet (Desyrel)Indications: Recurrent major depressive disorder, in partial remission (HCC) Take 1 Tablet by mouth at bedtime. 30 Tablet 1 08/27/2023 Active Folic Acid 1 MG Oral Tablet Take 1 Tablet by mouth in the morning. 90 Tablet 1 09/02/2023 Active Thiamine HCl 100 MG Oral Tablet (vitamin B-1) Take 1 Tablet by mouth in the morning. 90 Tablet 3 09/02/2023 Active Furosemide 40 MG Oral Tablet (Lasix) Take 1 Tablet by mouth in the morning. 30 Tablet 5 09/04/2023 Active documented as of this encounter (statuses as of 10/03/2023) Active Problems Problem Noted Date Diagnosed Date Ulcerative pancolitis without complication 02/09 Recurrent major depressive disorder, in partial remission 02/09/2021 Other specified hypothyroidism 02/09/2021 Alcohol abuse 12/04/2017 Dupuytren's contracture of hand 12/18/2012 Pruritic disorder 04/22/2008 documented as of this encounter (statuses as of 10/03/2023) Resolved Problems Problem Noted Date Diagnosed Date Resolved Date Toxic effect of venom 04/22/20082017 Overview: ICD-10 update of inactive term documented as of this encounter (statuses as of 10/03/2023) Immunizations Name Administration Dates Next Due COVID-19 mRNA, LNP-s, No Pre serve, 2-Dose Series (ScaleMP) 01/04/2021,12/14/2020 Hepatitis B, 20+ yrs 10/29/2021,05/28/2021,04/27 TDAP [...] Telephone Encounter - Bernard Rodriguez MD - 10/03/2023 4:31 PM EST Agree with advice for ED visit. * Telephone Encounter - Priscilla Coombs RN - 10/03/2023 11:37 AM EST TE with pts who reports that pt's abdomen is swollen and thinks it needs drained. I encouragedher to go to ER for evaluation and will forward to PCP and GI. * Telephone Encounter - Hermila Causey OSA - 10/03/2023 11:06 AM EST Pt would like guidance. Pts stomach is in pain and is bloated . is worried and would like a call back . [phone] be advised documented in this encounter Plan of Treatment Upcoming Encounters Date Type Department Care Team (Latest Contact Info) Description 10/29/2023 12:20 PM EST [facility] [address] [facility] [id number] Bernard [facility] [address] [facility] [place] [address] 10/30/2023 12:00 PM EST Office Visit Gastroenterology , [facility] [address] [place] [address] Radha Workman CRNP [address] [place] [address] 12/02/2023 10:00 AM EST Office Visit Nephrology, [facility] [address] [place], [place] [address] ZemaJing guerrero PA-C [address] [place] [address] 01/06/2024 1:00 PM EDT Hospital Encounter ENDO [facility], Endoscopy Room [facility] [address] [place] [phone] Edith Aguilar DO [address] [place] [address] 01/06/2024 1:00 PM EDT - 01/06/2024 2:00 PM EDT [facility] [address] [place] [phone] Edith Aguilar DO [address] [place] [address] ESOPHAGOGASTRODUODENOSCOPY (EGD), FLEXIBLE, TRANSORAL, DIAGNOSTIC 02/04/2024 8:45 AM EDT Imaging Radiology [facility] [address] [place] [address] Scheduled Procedures Name Priority Associated Diagnoses Date/Ti va ESOPHAGOGASTRODUODENOSCOPY ( EGD), FLEXIBLE, TRANSORAL, DIAGNOSTIC Ulcerative colitis without complications, unspecified location (HCC) Other cirrhosis of liver (HCC) 01/06/2024 1:00 PM EDT COLONOSCOPY FLEXIBLE PROXIMA L DIAGNOSTIC Ulcerative colitis without complications, unspecified location (HCC) Other cirrhosis of liver (HCC) 01/06/2024 1:00 PM EDT Health Maintenance Due Date Last Done Comments Pneumococcal Vaccine: Pediatrics (0 to 5 Years) and At-Risk Patients (6 to 64 Years) (1 - PCV) 1969 HIV Screening 1978 Cologuard 2008 Fecal Occult Blood Test 2008 Sigmoidoscopy 2008 Zoster Vaccines (1 of 2) 2013 Depression, Most Recent Score >= 10 (will fire each visit until score < 10) 06/14/2021 06/13/2021 COVID-19 Vaccine (4 - season) 2023 09/27/2021, 01/04/2021, 12/14/2020 Influenza Vaccine (FLU shot) (#1) 2023 TSH 08/14/2024 08/14/2023, 12/06, 04/18/2021, Additional history exists Lipid Panel 01/03/2028 01/02/2023 [...] filedocumented as of this encounter Care Teams Job Spotter Relationship Specialty Start Date End Date Bernard Rodriguez MD [address] [place] [address] PCP - General 06/25/00 documented as of this encounter
--- OUTSIDE RECORDS SUMMARY | 2023-10-04 20:36 | External Medical Summary | Summary of Care ---
Author Name Unknown Organization [facility] Address [address] [place] [address] Phone [phone] Care Team Providers Care Drywall Taper Name Role Phone Bernard Rodriguez MD Primary Care Provider [phone]- [phone] Reason for Visit * Reason Onset Date Comments Other 10/03/2023 Encounter Details Date Type Department Care Team (Late st Contact Info) Description 10/03/2023 Telephone Gastroenterology, [facility] [address] [facility] [address] Services, Scheduling [address] [place] [address] Other Allergies Active Allergy Reactions Criticality Noted Date [...] mRNA, LNP-s, No Pre serve, 2-Dose Series (Triviala) 01/04/2021,12/14/2020 Hepatitis B, 20+ yrs 10/29/2021,05/28/2021,04/27 TDAP [...] encounter Miscellaneous Notes * Telephone Encounter - Deanna Nicholson RN - 10/03/2023 4:11 PM EST Called and notified pt. He agrees to ER. * Telephone Encounter - Chanell Madison CRNP - 10/03/2023 4:02 PM EST Recommend ED evaluation MONIQUE Jonas * Telephone Encounter - Deanna Nicholson RN - 10/03/2023 3:40 PM EST Called . She said pt is having significant abd pain. Pain started a few days ago. Was supposed to have appt Oct 09 but it was cancelled. Now doesn't have appt until Oct 29. Admitted to hospital the week before for kidney failure. Also has h/o cirrhosis from alcohol abuse. No longer drinking; stopped in July. On Sep 15 110.6 lbs and weight yesterday is 120 lbs. Reports mild SOB. Pt is on low sodium diet. Taking furosemide 40 mg daily. * Telephone Encounter - Lakshmi Vazquez OSA - 10/03/2023 2:17 PM EST Patient calling and would like a call back as patient is having stomach pain and there are no sooner appointments at this time. Patient is scheduled for 10/30/23. Please assist documented in this encounter Plan of Treatment Upcoming Encounters Date Type Department Care Team (Latest Contact Info) Description 10/29/2023 12:20 PM EST Office Visit [facility] [address] [facility], [place] [phone] Bernard Rodriguez MD [address] [facility], [place] [address] 10/30/2023 12:00 PM EST Office Visit Gastroenterology , [facility] [address] [place] [address] Radha Workman CRNP [address] [place] [address] 12/02/2023 10:00 AM EST Office Visit Nephrology, [facility] [address] [facility] [place] [address] Zemaitis, Jing Shea PA-C [address] [facility] [place] [address] 01/06/2024 1:00 PM EDT Hospital Encounter ENDO [facility], Endoscopy Room [facility] [address] [place] [phone] Edith Aguilar DO [address] [place] [address] 01/06/2024 1:00 PM EDT - 01/06/2024 2:00 PM EDT Surgery ENDO [facility], Endoscopy Room [facility] [address] [place] [phone] Edith Aguilar DO [address] [place] [address] ESOPHAGOGASTRODUODENOSCOPY (EGD), FLEXIBLE, TRANSORAL, DIAGNOSTIC 02/04/2024 8:45 AM EDT Imaging Radiology [facility] [address] [place] [address] Scheduled Procedures Name Priority Associated Diagnoses Date/Ti me ESOPHAGOGASTRODUODENOSCOPY ( EGD), FLEXIBLE, TRANSORAL, DIAGNOSTIC Ulcerative [...] score < 10) 06/14/2021 06/13/2021 COVID-19 Vaccine ( - season) 2023 09/27/2021, 01/04/2021, 12/14/2020 Influenza [...] filedocumented as of this encounter Care Teams Drywall Taper Relationship Specialty Start Date End Date Bernard Rodriguez MD [address] [place] [address] PCP - General 06/25/00 documented as of this encounter
[2023-10-04 21:45] LABS: Basophils # (auto) 0.05 K/uL (0.00-0.20); Basophils % (auto) 0.8 %; Eosinophils % (auto) 1.7 %; Hematocrit (blood only) 34.6 % (42.0-52.0); Hemoglobin 11.3 g/dl (14.0-18.0); Immature Granulocytes # (auto) 0.02 K/uL (0.01-0.20); Immature Granulocytes % (auto) 0.3 %; Lymphocytes # (auto) 1.68 K/uL (1.20-3.40); Lymphocytes % (auto) 27.9 %; Mean Corpuscular Hemoglobin 30.1 pg (25.0-34.0); Mean Corpuscular Hgb Conc 32.7 g/dL (32.0-36.0); Mean Platelet Volume 8.2 fL (9.4-12.4); Monocytes # (auto) 0.55 K/uL (0.11-0.59); Monocytes % (auto) 9.1 %; Neutrophils # (auto) 3.62 K/uL (1.40-6.50); Neutrophils % (auto) 60.2 %; Platelet Count 201 K/uL (130-400); RDW Coefficient of Variation 16.4 % (11.5-14.5); RDW Standard Deviation 55.6 fL (36.4-46.3); Red Blood Count 3.76 M/uL (4.70-6.10); White Blood Count 6.02 K/ul (4.8-10.8)
[2023-10-04 21:54] LABS: Albumin Level 3.1 gm/dl (3.4-5.0); Anion Gap 9 (3-11); Calcium 8.5 mg/dl (8.6-10.3); Carbon Dioxide 32 mmol/L (21-32); Chloride 93 mmol/L (98-107); Potassium 3.2 mmol/L (3.5-5.1); Sodium 134 mmol/L (136-145)
[2023-10-04 22:00] LABS: Alanine Aminotransferase 3 U/L (7-52); Albumin Globulin Ratio 0.7 (0.9-2); Alkaline Phosphatase 63 U/L (34-104); Aspartate Aminotransferase 29 U/L (13-39); BUN Creatinine Ratio 17.3 (10-20); Blood Urea Nitrogen 17 mg/dl (6-23); Est GFR (African American) 96.7 ml/min; Est GFR (Non-African American) 83.5 ml/min; Globulin 4.3 gm/dl (2.5-4.0); Glucose 131 mg/dl (70-99(Fasting)); Lipase 34 U/L (11-82); Total Protein 7.4 gm/dl (6.0-8.3)
[2023-10-04 22:22] LABS: Magnesium 1.7 mg/dl (1.7-2.4)
[2023-10-04 22:34] LABS: Troponin I High Sensitivity 4.9 pg/ml (0-20)
[2023-10-04] MEDS ORDERED: cefTRIAXone SODIUM 2,000 MG/50 ML BAG IV STA (22:39)
--- NOTE | 2023-10-04 23:15 | Emergency Department Note ---
History of Present Illness General Chief complaint: Abdominal Pain Stated complaint: ABDOMINAL PAIN, DISTENSION Time Seen by Provider: 10/04/23 22:15 History of Present Illness Maximum Pain Intensity: 10 This 58-year-old alcoholic male presents the ER complaining of increasing abdominal pain and swelling for the past few days. He also complains of subjective fever and chills and generalized weakness. Patient denies chest pain, cough, congestion, vomiting, diarrhea. He denies any alcohol use for the past 2 months. He denies prior paracentesis. Home Medications Medication Instructions Recorded Confirmed Type balsalazide 750 mg capsule 2,250 mg PO TID 08/08/23 10/04/23 History levothyroxine 75 mcg tablet 75 mcg PO DAILYBB 08/08/23 10/04/23 History loperamide 2 mg capsule 2 mg PO TID PRN Diarrhea 08/08/23 10/04/23 History folic acid 1 mg tablet 1 mg PO DAILY #30 tabs 08/23/23 10/04/23 Rx thiamine HCl (vitamin B1) 100 mg 100 mg PO DAILY #30 tabs 08/23/23 10/04/23 Rx tablet furosemide 40 mg tablet 40 mg PO QAM 09/03/23 10/04/23 History sertraline 50 mg tablet 50 mg PO DAILY #90 tabs 09/03/23 10/04/23 Rx trazodone 50 mg tablet 50 mg PO HS 10/04/23 10/04/23 History Allergies Allergy/AdvReac Type Severity Reaction Status Date / Time amoxicillin Allergy Intermediate Rash Verified 10/04/23 23:30 Past Med/Surg History Medical History (Updated 10/05/23 @ 03:10 by Key Hedrick DO) Recurrent falls Alcohol abuse In remission. Last drink 07/2023 Cirrhosis Low back pain ONGOING SINCE A FALL (REMOTE HX) Anxiety Ulcerative colitis Hypothyroid Surgical History History of colonoscopy History of hand surgery FINGER AMPUTATED D/T INJURY , LEFT INDEX Family History Mother Family history of diabetes mellitus Denies family history of Prostate cancer Breast cancer Colorectal cancer Social History Smoking Status: Former smoker Tobacco Type: Cigarettes Do You Dip or Chew Tobacco: No; Hx Alcohol Use: Yes Alcohol type: beer and hard liquor Hx Substance Use: No Preferred Language: Italian Communication Ability: Effective Advance Scout Required: No Beliefs That Will Affect Care: None marital status: Current Living Situation: Spouse Current Living Situation Comment: AND SON Feels Safe at Home: Yes Diet: low salt caffeine: Yes Dental Care, Regularly: No Physical Activity Frequency: Daily Seatbelt Use: always Sunscreen Use: No Assistive Devices: None Review of Systems A total of 10 systems reviewed and were otherwise negative Physical Exam Vital Signs Vital Signs - 24 hr 10/04/23 20:33 10/04/23 23:37 10/05/23 00:00 Temperature 36.6 C Temperature Source Oral Pulse Rate 84 71 71 Pulse Rate from SpO2 Sensor 71 Pulse Rhythm Regular Pulse Strength Normal Respiratory Rate 19 14 Respiratory Effort / Characteristics Non-Labored Spontaneous Respiratory Depth Normal Respiratory Pattern Regular Blood Pressure 111/76 118/80 Blood Pressure Mean 87 92 Blood Pressure Position Sitting Pulse Oximetry 94 95 Oxygen Delivery Method Room Air Sepsis Recent Fever Within 48 Hours No Sepsis New/Unexplained Change in Mental Status N/A Sepsis Action Taken by Nursing No Action Required 10/05/23 00:30 10/05/23 01:00 10/05/23 01:30 Temperature Temperature Source Pulse Rate 73 74 72 Pulse Rate from SpO2 Sensor 73 74 73 Pulse Rhythm Pulse Strength Respiratory Rate 17 16 14 Respiratory Effort / Characteristics Respiratory Depth Respiratory Pattern Blood Pressure 113/81 107/75 107/76 Blood Pressure Mean 91 85 86 Blood Pressure Position Pulse Oximetry 94 94 95 Oxygen Delivery Method Room Air Room Air Room Air Sepsis Recent Fever Within 48 Hours Sepsis New/Unexplained Change in Mental Status Sepsis Action Taken by Nursing 10/05/23 02:00 10/05/23 02:14 10/05/23 02:33 Temperature 36.6 C Temperature Source Oral Pulse Rate 71 69 Pulse Rate from SpO2 Sensor 71 70 Pulse Rhythm Pulse Strength Respiratory Rate 17 16 Respiratory Effort / Characteristics Respiratory Depth Respiratory Pattern Blood Pressure 107/79 121/78 Blood Pressure Mean 88 92 Blood Pressure Position Pulse Oximetry 93 95 Oxygen Delivery Method Room Air Room Air Sepsis Recent Fever Within 48 Hours Sepsis New/Unexplained Change in Mental Status Sepsis Action Taken by Nursing 10/05/23 03:00 10/05/23 03:26 Temperature Temperature Source Pulse Rate 67 69 Pulse Rate from SpO2 Sensor 67 Pulse Rhythm Pulse Strength Respiratory Rate 12 Respiratory Effort / Characteristics Respiratory Depth Respiratory Pattern Blood Pressure Blood Pressure Mean Blood Pressure Position Pulse Oximetry 95 Oxygen Delivery Method Room Air Sepsis Recent Fever Within 48 Hours Sepsis New/Unexplained Change in Mental Status Sepsis Action Taken by Nursing VITALS: Vitals are noted on the nurse's note and reviewed by myself. Vital signs stable. GENERAL: White male chronically ill-appearing, in no acute distress, nondiaphoretic, well-developed well-nourished. SKIN: Capillary reflex less than 2 seconds. HEENT: Normocephalic. PERRLA. EOMI. Nares patent. Mucous membranes moist. Neck is supple without nuchal rigidity. HEART: Regular rate and rhythm LUNGS: Clear to auscultation bilaterally without wheezes, rales or rhonchi. No retractions or accessory muscle use. ABDOMEN: Positive bowel sounds x 4. Normal tympanic percussion. Soft, mid abdomen with fluid sign present, tender to palpation, without masses or organomegaly. Floyd sign negative. No guarding or rebound tenderness. No CVA tenderness MUSCULOSKELETAL: No gross musculoskeletal defects. NEURO: Patient was alert and oriented to person place and time. No focal neurological deficits. Course Administered Medications Discontinued Medications Ceftriaxone Sodium (Rocephin) 2,000 mg in 50 mls @ 100 mls/hr IV NOW STA Stop: 10/04/23 23:08 Last Infusion: 10/05/23 01:23 Dose: Infused Documented By: Admin: 10/05/23 00:50 Dose: 100 mls/hr Documented By: CANDIDO Ioversol (Optiray 320 500ml) 86 ml IV ONCE ONE Stop: 10/04/23 23:17 Last Admin: 10/04/23 23:16 Dose: 86 ml Documented By: ULISSES Medical Decision Making Medical Records Attestation: I reviewed the patient's medical records. Home Medications Current Medication List: was personally reviewed by me Laboratory Data Attestation: I reviewed the patient's lab results. 10/04/23 21:30 10/04/23 21:30 Lab Results 10/04/23 10/04/23 10/05/23 Range/Units 21:30 23:45 00:39 WBC 6.02 (4.8-10.8) K/ul RBC 3.76 L (4.70-6.10) M/uL Hgb 11.3 L (14.0-18.0) g/dl Hct 34.6 L (42.0-52.0) % MCV 92.0 (80.0-100.0) fL MCH 30.1 (25.0-34.0) pg MCHC 32.7 (32.0-36.0) g/dL RDW Std Deviation 55.6 H (36.4-46.3) fL RDW Coeff of Bo 16.4 H (11.5-14.5) % Plt Count 201 (130-400) K/uL MPV 8.2 L (9.4-12.4) fL Immature Gran % (Auto) 0.3 % Neut % (Auto) 60.2 % Lymph % (Auto) 27.9 % [place] % (Auto) 9.1 % Eos % (Auto) 1.7 % Baso % (Auto) 0.8 % Neut # (Auto) 3.62 (1.40-6.50) K/uL Lymph # (Auto) 1.68 (1.20-3.40) K/uL [place] # (Auto) 0.55 (0.11-0.59) K/uL Eos # (Auto) 0.10 (0.00-0.50) K/uL Baso # (Auto) 0.05 (0.00-0.20) K/uL Immature Gran # (Auto) 0.02 (0.01-0.20) K/uL PT 11.6 (9.0-12.0) Seconds INR 1.1 (0.9-1.1) APTT 29 (21-31) Seconds PTT Ratio 1.0 Sodium 134 L (136-145) mmol/L Potassium 3.2 L (3.5-5.1) mmol/L Chloride 93 L (98-107) mmol/L Carbon Dioxide 32 (21-32) mmol/L Anion Gap 9 (3-11) BUN 17 (6-23) mg/dl Creatinine 0.98 (0.6-1.4) mg/dl Est Cr Clr Drug Dosing Not Reportable Est GFR ( Amer) 96.7 ml/min Est GFR (Non-Af Amer) 83.5 ml/min BUN/Creatinine Ratio 17.3 (10-20) Glucose 131 H (70-99(Fasting)) mg/dl Lactate 1.4 (0.4-2.0) mmol/L Calcium 8.5 L (8.6-10.3) mg/dl Magnesium 1.7 (1.7-2.4) mg/dl Total Bilirubin 1.0 (0.2-1.0) mg/dl AST 29 (13-39) U/L ALT 3 L (7-52) U/L Alkaline Phosphatase 63 (34-104) U/L Ammonia Cancelled Troponin I High Sens 4.9 (0-20) pg/ml B-Natriuretic Peptide 84 (0-100) pg/ml Total Protein 7.4 (6.0-8.3) gm/dl Albumin 3.1 L (3.4-5.0) gm/dl Globulin 4.3 H (2.5-4.0) gm/dl Albumin/Globulin Ratio 0.7 L (0.9-2) Lipase 34 (11-82) U/L Procalcitonin 0.18 (0-0.5) ng/ml Urine Color Urine Appearance (Clear) Urine pH (4.5-7.5) Ur Specific [place] (1.000-1.030) Urine Protein (Negative) Urine Glucose (UA) (Negative) Urine Ketones (Negative) Urine Blood (Negative) Urine Nitrite (Negative) Urine Bilirubin (Negative) Urine Urobilinogen (Negative) Ur Leukocyte Esterase (Negative) Urine WBC (Auto) (0-5) /hpf Urine RBC (Auto) (0-4) /hpf U Hyaline Cast (Auto) (0-5) /lpf U Epithel Cells (Auto) (0-5) /lpf Urine Bacteria (Auto) (Negative) Ethyl Alcohol mg/dL < 10.0 (<10.0) mg/dl 10/05/23 Range/Units 02:15 WBC (4.8-10.8) K/ul RBC (4.70-6.10) M/uL Hgb (14.0-18.0) g/dl Hct (42.0-52.0) % MCV (80.0-100.0) fL MCH (25.0-34.0) pg MCHC (32.0-36.0) g/dL RDW Std Deviation (36.4-46.3) fL RDW Coeff of Bo (11.5-14.5) % Plt Count (130-400) K/uL MPV (9.4-12.4) fL Immature Gran % (Auto) % Neut % (Auto) % Lymph % (Auto) % [place] % (Auto) % Eos % (Auto) % Baso % (Auto) % Neut # (Auto) (1.40-6.50) K/uL Lymph # (Auto) (1.20-3.40) K/uL [place] # (Auto) (0.11-0.59) K/uL Eos # (Auto) (0.00-0.50) K/uL Baso # (Auto) (0.00-0.20) K/uL Immature Gran # (Auto) (0.01-0.20) K/uL PT (9.0-12.0) Seconds INR (0.9-1.1) APTT (21-31) Seconds PTT Ratio Sodium (136-145) mmol/L Potassium (3.5-5.1) mmol/L Chloride (98-107) mmol/L Carbon Dioxide (21-32) mmol/L Anion Gap (3-11) BUN (6-23) mg/dl Creatinine (0.6-1.4) mg/dl Est Cr Clr Drug Dosing Est GFR ( Amer) ml/min Est GFR (Non-Af Amer) ml/min BUN/Creatinine Ratio (10-20) Glucose (70-99(Fasting)) mg/dl Lactate (0.4-2.0) mmol/L Calcium (8.6-10.3) mg/dl Magnesium (1.7-2.4) mg/dl Total Bilirubin (0.2-1.0) mg/dl AST (13-39) U/L ALT (7-52) U/L Alkaline Phosphatase (34-104) U/L Ammonia Troponin I High Sens (0-20) pg/ml B-Natriuretic Peptide (0-100) pg/ml Total Protein (6.0-8.3) gm/dl Albumin (3.4-5.0) gm/dl Globulin (2.5-4.0) gm/dl Albumin/Globulin Ratio (0.9-2) Lipase (11-82) U/L Procalcitonin (0-0.5) ng/ml Urine Color Dark Yellow Urine Appearance Clear (Clear) Urine pH 5.0 (4.5-7.5) Ur Specific [place] > 1.045 H (1.000-1.030) Urine Protein Trace H (Negative) Urine Glucose (UA) Negative (Negative) Urine Ketones Negative (Negative) Urine Blood Negative (Negative) Urine Nitrite Negative (Negative) Urine Bilirubin 1+ H (Negative) Urine Urobilinogen Negative (Negative) Ur Leukocyte Esterase Negative (Negative) Urine WBC (Auto) 1-5 (0-5) /hpf Urine RBC (Auto) 0-4 (0-4) /hpf U Hyaline Cast (Auto) 5-10 H (0-5) /lpf U Epithel Cells (Auto) 10-20 H (0-5) /lpf Urine Bacteria (Auto) Negative (Negative) Ethyl Alcohol mg/dL (<10.0) mg/dl Imaging Data Attestation: I personally reviewed and interpreted this imaging study as follows: Radiologist's Impression: Abdomen/Pelvis CT 10/04/23 22:39 Exam(s): CT ABDOMEN + PELVIS With Contrast IV Amt: OPTIRAY 320 86ML EXAM: CT Abdomen and Pelvis With Intravenous Contrast CLINICAL HISTORY: abd pain, cirrhosis. TECHNIQUE: Axial computed tomography images of the abdomen and pelvis with intravenous contrast. CTDI is 14.7 mGy and DLP is 775.88 mGy-cm. Automated exposure control was utilized for the study. A dose lowering technique was utilized adhering to the principles of ALARA. CONTRAST: Patient received OPTIRAY 320 86ML of IV contrast COMPARISON: CT abdomen and pelvis without contrast dated 08/20/2023 FINDINGS: Lung bases: Unremarkable. No mass. No consolidation. ABDOMEN: Liver: Irregular contours to the liver anteriorly with the liver is smaller in size from the previous examination. There is a suggestion of a small recanalized paraumbilical vein. Gallbladder and bile ducts: Unremarkable. No calcified stones. No ductal dilation. Pancreas: Unremarkable. No mass. No ductal dilation. Spleen: Innumerable rounded appearing hypoattenuating areas throughout the spleen with splenomegaly. Adrenals: Unremarkable. No mass. Kidneys and ureters: Unremarkable. No solid mass. No hydronephrosis. Stomach and bowel: Varicosities noted in the gastroesophageal junction. No evidence for bowel obstruction. Evaluation of bowel mucosa is limited with extensive ascites. No obvious asymmetry. Similar left inguinal hernia containing infiltrating fluid. No bowel herniation. PELVIS: Appendix: No significant abnormality identified involving the appendix. Bladder: Unremarkable. No mass. Reproductive: Unremarkable as visualized. ABDOMEN and PELVIS: Intraperitoneal space: There is marked increase in volume in the previously noted ascites, now large volume filling and distending the abdomen and pelvis. No loculation. Bones/joints: No acute fracture. No dislocation. Soft tissues: Subcutaneous edema noted involving the proximal lower extremities and involving the dependent superficial soft tissues throughout the abdomen or pelvis. Vasculature: The splenic vein and portal veins are patent. The IVC is patent. Lymph nodes: Unremarkable. No enlarged lymph nodes. IMPRESSION: 1. There is marked increase in volume in the previously noted ascites, now large volume filling and distending the abdomen and pelvis. No loculation. 2. Irregular contours to the liver anteriorly with the liver is smaller in size from the previous examination. There is a suggestion of a small recanalized paraumbilical vein. Findings are consistent with cirrhosis. 3. Innumerable rounded appearing hypoattenuating areas throughout the spleen with splenomegaly. Differential consideration includes lymphoma, metastatic disease, infection, sarcoid or less likely developing cystic changes. 4. Subcutaneous edema noted involving the proximal lower extremities and involving the dependent superficial soft tissues throughout the abdomen or pelvis. Findings are most consistent with anasarca. Electronically signed by: Arnaud Cheng MD 10/05/23 01:31 AM MDM Narrative Prior records/ancillary studies reviewed. Triage Nursing notes reviewed. Additional history obtained from family. The patient's history was concerning for abdominal pain. Differential diagnosis: Etiologies such as progression of liver disease, ascites, spontaneous bacterial peritonitis, appendicitis, diverticulitis, PUD, biliary pathology, UTI, pancreatitis, obstruction, mesenteric ischemia, aortic pathology, infections, inflammatory bowel disease, renal colic, as well as others were entertained. Physical examination findings: As above. ER treatment provided: An order was placed for continuous cardiac monitoring. The monitor shows a rate of 60-100 with a sinus rhythm per my Independent interpretation. Rocephin On reassessment the patient felt better. Diagnostics interpreted by me: ECG: Ordered for weakness EKG: Normal sinus, normal intervals, T wave inversions in the anterolateral leads, rate of 72. Impression normal sinus rhythm with T wave inversions in the anterolateral leads independent interpreted by myself The labs Independently Interpreted by myself revealed anemia, hypokalemia, hyponatremia, hyperglycemia Imaging studies: 1. There is marked increase in volume in the previously noted ascites, now large volume filling and distending the abdomen and pelvis. No loculation. 2. Irregular contours to the liver anteriorly with the liver is smaller in size from the previous examination. There is a suggestion of a small recanalized paraumbilical vein. Findings are consistent with cirrhosis. 3. Innumerable rounded appearing hypoattenuating areas throughout the spleen with splenomegaly. Differential consideration includes lymphoma, metastatic disease, infection, sarcoid or less likely developing cystic changes. 4. Subcutaneous edema noted involving the proximal lower extremities and involving the dependent superficial soft tissues throughout the abdomen or pelvis. Findings are most consistent with anasarca. Chest x-ray with no acute consolidation, pneumothorax or free air per my independent interpretation Consultation: A consultation was placed with the hospitalist. The case was discussed and diagnostics were reviewed. The patient was evaluated in the ER for further treatment. Exam and history seem consistent with worsening of his cirrhosis and ascites. Patient was afebrile nontoxic. Negative lactic. No leukocytosis. Patient was admitted to the medical service for further evaluation and workup. Will defer paracentesis to daily tomorrow and this is agreeable with the admitting team. Patient was given Rocephin which is 24-hour acting. Patient is agreeable. By the evaluation outlined above emergent etiologies such as appendicitis, diverticulitis, PUD, biliary pathology, UTI, pancreatitis, obstruction, mesenteric ischemia, aortic pathology, inflammatory bowel disease, renal colic, as well as others were deemed relatively unlikely. The pt informed about the findings as listed above. All questions were answered and pleased with the treatment. The chart was completed utilizing [employer] voice recognition software. Grammatical errors, random word insertions, pronoun errors, and incomplete sentences are an occassional consequence of this system due to software limitations, ambient noise, and hardware issues. Any formal questions or concerns about the content, text, or information contained within the body of this dictation should be directly addressed to the physician family service assistant for clarification. Impression & Plan Cirrhosis, Abdominal ascites, Abdominal pain, acute, Splenic mass Discharge Plan Visit Data Chief Complaint: Abdominal Pain Stated Complaint: ABDOMINAL PAIN, DISTENSION ED Provider: Manuela Orona ED Midlevel Provider: Lela Sequeira Discharge Problem: Cirrhosis, Abdominal ascites, Abdominal pain, acute, Splenic mass Patient Disposition: Admitted As Inpatient Condition: Fair Forms Stand Alone Forms: [facility] Prescriptions Prescriptions: No Action furosemide 40 mg tablet 40 mg PO QAM sertraline 50 mg tablet 50 mg PO DAILY Qty: 90 3RF thiamine HCl (vitamin B1) 100 mg Tablet 100 mg PO DAILY Qty: 30 0RF folic acid 1 mg Tablet 1 mg PO DAILY Qty: 30 0RF loperamide 2 mg capsule 2 mg PO TID PRN (Reason: Diarrhea) levothyroxine 75 mcg tablet 75 mcg PO DAILYBB balsalazide 750 mg capsule 2,250 mg PO TID trazodone 50 mg tablet 50 mg PO HS Referrals Referrals: Dave Lane DO [Primary Care Provider] - Discharge Problem: Cirrhosis Qualifiers: Hepatic cirrhosis type: alcoholic cirrhosis Ascites presence: with ascites Q ualified Code(s): K70.31 - Alcoholic cirrhosis of liver with ascites
[2023-10-04] MEDS ORDERED: OPTIRAY 320 500ml IV ONE (23:16)
[2023-10-05 01:29] LABS: INR 1.1 (0.9-1.1); Partial Thromboplastin Time 29 Seconds (21-31); Prothrombin Time 11.6 Seconds (9.0-12.0)
--- NOTE | 2023-10-05 01:32 | CT Scan Report ---
Exam(s): CT ABDOMEN + PELVIS With Contrast IV Amt: OPTIRAY 320 86ML EXAM: CT Abdomen and Pelvis With Intravenous Contrast CLINICAL HISTORY: abd pain, cirrhosis. TECHNIQUE: Axial computed tomography images of the abdomen and pelvis with intravenous contrast. CTDI is 14.7 mGy and DLP is 775.88 mGy-cm. Automated exposure control was utilized for the study. A dose lowering technique was utilized adhering to the principles of ALARA. CONTRAST: Patient received OPTIRAY 320 86ML of IV contrast COMPARISON: CT abdomen and pelvis without contrast dated 08/20/2023 FINDINGS: Lung bases: Unremarkable. No mass. No consolidation. ABDOMEN: Liver: Irregular contours to the liver anteriorly with the liver is smaller in size from the previous examination. There is a suggestion of a small recanalized paraumbilical vein. Gallbladder and bile ducts: Unremarkable. No calcified stones. No ductal dilation. Pancreas: Unremarkable. No mass. No ductal dilation. Spleen: Innumerable rounded appearing hypoattenuating areas throughout the spleen with splenomegaly. Adrenals: Unremarkable. No mass. Kidneys and ureters: Unremarkable. No solid mass. No hydronephrosis. Stomach and bowel: Varicosities noted in the gastroesophageal junction. No evidence for bowel obstruction. Evaluation of bowel mucosa is limited with extensive ascites. No obvious asymmetry. Similar left inguinal hernia containing infiltrating fluid. No bowel herniation. PELVIS: Appendix: No significant abnormality identified involving the appendix. Bladder: Unremarkable. No mass. Reproductive: Unremarkable as visualized. ABDOMEN and PELVIS: Intraperitoneal space: There is marked increase in volume in the previously noted ascites, now large volume filling and distending the abdomen and pelvis. No loculation. Bones/joints: No acute fracture. No dislocation. Soft tissues: Subcutaneous edema noted involving the proximal lower extremities and involving the dependent superficial soft tissues throughout the abdomen or pelvis. Vasculature: The splenic vein and portal veins are patent. The IVC is patent. Lymph nodes: Unremarkable. No enlarged lymph nodes. IMPRESSION: 1. There is marked increase in volume in the previously noted ascites, now large volume filling and distending the abdomen and pelvis. No loculation. 2. Irregular contours to the liver anteriorly with the liver is smaller in size from the previous examination. There is a suggestion of a small recanalized paraumbilical vein. Findings are consistent with cirrhosis. 3. Innumerable rounded appearing hypoattenuating areas throughout the spleen with splenomegaly. Differential consideration includes lymphoma, metastatic disease, infection, sarcoid or less likely developing cystic changes. 4. Subcutaneous edema noted involving the proximal lower extremities and involving the dependent superficial soft tissues throughout the abdomen or pelvis. Findings are most consistent with anasarca. Electronically signed by: Arnaud Cheng MD 10/05/23 01:31 AM
[2023-10-05 02:56] LABS: Appearance Urine Clear (Clear); Bacteria Urine Automated Negative (Negative); Blood Urine Negative (Negative); Color Urine Dark Yellow; Glucose Urine UA Negative (Negative); Ketones Urine Negative (Negative); Leukocyte Esterase Urine Negative (Negative); Nitrite Urine Negative (Negative); Protein Urine Trace (Negative); RBC Urine Automated 0-4 /hpf (0-4); Specific Gravity Urine > 1.045 (1.000-1.030); Urobilinogen Urine Negative (Negative)
[2023-10-05 03:00] LABS: Bilirubin Urine 1+ (Negative)
--- NOTE | 2023-10-05 03:00 | History & Physical Report ---
Date of Service October 05, 2023 Assessment & Plan (1) Cirrhosis: Plan: 58yo male with worsening ascites. Apparently was just told that he has cirrhosis. 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 Patient with history of UC which can be associated with AIH, although rarely. Patient does not drink alcohol anymore. His liver studies are normal today as is platelet count and INR. Albumin of 3.1. New splenic lesions noted on CT. Question new malignant process? Could also be splenic infarctions in setting of portal hypertension? He was given IVF during his last hospitalization for treatment of DANI - could be contributing to his current ascites. -Admit to medical -Check AFP (no liver lesion noted, however) -Order placed for IR paracentesis - Diagnostic and therapeutic. Order for cell count, culture, albumin and glucose -Will need volume expansion with Albumin if 4+ liters removed -Continue diuresis with Lasix 40mg po daily -Add Spironolactone 100mg po daily -Cautious with fluid removal + diuresis as patient did recently present with DANI -GI Consultation appreciated -Continue Ceftriaxone 2gm IV daily for now (2) Hypothyroid: Plan: Chronic. Elevated TSH at last visit at 9.846 with low T4 of 0.45 -Continue Synthroid -Check TFTs (3) Ulcerative colitis: Plan: Chronic. Stable -Continue Balsalazide -Patient will need to bring his medication from home History of Present Illness Chief Complaint: worsening ascites Primary Care Provider: Dave Lane DO Gary Sandoval is a 58yo male with history of ulcerative colitis, hypothyroidism, former EtOH use. He was admitted to [facility] on 08/20/23 - 08/23/23 after presenting with poor appetite and weakness. He was found to have elevated LFTs. Patient had a CT of the Abdomen performed on 08/19/23 which revealed hepatosplenomegaly with hepatic steatosis and probable cirrhosis. Moderate abdominopelvic ascites with anasarca. Patient was treated with IVF with improvement in his renal function (5.38 on arrival --> 1.6 on day of discharge). He was evaluated by GI for his newly discovered hepatosplenomegaly. His workup thus far with: Elevated Ferritin at 832.5 on 08/20/23 POSITIVE Smooth Muscle antibody titer at 1:20 POSITIVE CMV IgG >10 POSITIVE EBV Capsid Ag IgG Ab at 569 Remainder of acute hepatitis panel unremarkable. Patient was discharged home and instructed to follow up with GI. He returns today due to progression of abdominal ascites, pain and distention. He has never had a paracentesis. He has a prescription for Lasix 40mg po daily that seems to have been started in late August by [facility] but patient is not sure if he is taking this medicine. He denies melena, hematochezia, hematemesis. No nausea, vomiting, diarrhea or constipation. No cough or SOB. No fevers or chills. No icterus or jaundice. Denies confusion. He has not had any alcohol since July 2023. Has had 20-25# of unintentional weight loss In the ER he is afebrile, HD stable ER Course: Ceftriaxone 2gm IV Allergies Allergy/AdvReac Type Severity Reaction Status Date / Time amoxicillin Allergy Intermediate Rash Verified 10/04/23 23:30 Home Medications Medication Instructions Recorded Confirmed Type balsalazide 750 mg capsule 2,250 mg PO TID 08/08/23 10/04/23 History levothyroxine 75 mcg tablet 75 mcg PO DAILYBB 08/08/23 10/04/23 History loperamide 2 mg capsule 2 mg PO TID PRN Diarrhea 08/08/23 10/04/23 History folic acid 1 mg tablet 1 mg PO DAILY #30 tabs 08/23/23 10/04/23 Rx thiamine HCl (vitamin B1) 100 mg 100 mg PO DAILY #30 tabs 08/23/23 10/04/23 Rx tablet furosemide 40 mg tablet 40 mg PO QAM 09/03/23 10/04/23 History sertraline 50 mg tablet 50 mg PO DAILY #90 tabs 09/03/23 10/04/23 Rx trazodone 50 mg tablet 50 mg PO HS 10/04/23 10/04/23 History Past Med/Surg History Medical History (Updated 10/05/23 @ 03:10 by Key Hedrick DO) Recurrent falls Alcohol abuse In remission. Last drink 07/2023 Cirrhosis Low back pain ONGOING SINCE A FALL (REMOTE HX) Anxiety Ulcerative colitis Hypothyroid Surgical History History of colonoscopy History of hand surgery FINGER AMPUTATED D/T INJURY , LEFT INDEX Family History Mother Family history of diabetes mellitus Denies family history of Prostate cancer Breast cancer Colorectal cancer Social History Smoking Status: Former smoker Tobacco Type: Cigarettes Do You Dip or Chew Tobacco: No; Hx Alcohol Use: Yes Alcohol type: beer and hard liquor Hx Substance Use: No Preferred Language: Khmer Communication Ability: Effective Insurance Healthcare Consultant Required: No Beliefs That Will Affect Care: None marital status: Current Living Situation: Spouse Current Living Situation Comment: AND SON Feels Safe at Home: Yes Diet: low salt caffeine: Yes Dental Care, Regularly: No Physical Activity Frequency: Daily Seatbelt Use: always Sunscreen Use: No Assistive Devices: None Review of Systems Review of Systems: All systems reviewed & are unremarkable except as noted in HPI & below Physical Exam Physical Exam: General: patient ill in appearance, thin and cachectic, NAD, AA&O x 4 Skin: warm, dry, intact, no rashes or lesions HEENT: NC/AT, PERRL, EOMI, anicteric sclera, conjunctiva without injection, external ear normal to inspection and nontender, nares patent, moist mucus membranes, dentition intact, no oropharyngeal lesions, neck supple, trachea midline, no LAD, no thyromegaly, no JVD Heart: +S1/S2, regular, no m/r/g Lungs: equal air entry bilaterally, no rales/rhonchi/wheezes Abd: +BS, tense ascites present, pain with palpation, no rebound/guarding Ext: warm, 2+ pulses in UE/LE bilaterally, no clubbing/cyanosis, 1+ edema of bilateral LE to knees Neuro: nonfocal, patient AA&O x 4, speech intact, no facial droop, moving all extremities on command with equal strength 5/5, no asterixis Results & Data Results & Data Vital Signs (Past 12 Hours) Vital Signs Temp Pulse Resp BP Pulse Ox O2 Del Method 10/04/23 23:37 71 10/04/23 20:33 36.6 C 84 19 111/76 94 Room Air Laboratory Results Laboratory Results WBC 6.02 K/ul (4.8-10.8) 10/04/23 21:30 RBC 3.76 M/uL (4.70-6.10) L 10/04/23 21: Hgb 11.3 g/dl (14.0-18.0) L 10/04/23 21: Hct 34.6 % (42.0-52.0) L 10/04/23: MCV 92.0 fL (80.0-100.0) 10/04/23: MCH 30.1 pg (25.0-34.0) 10/04/23 21: MCHC 32.7 g/dL (32.0-36.0) 10/04/23: RDW Std Deviation 55.6 fL (36.4-46.3) H 10/04/23: RDW Coeff of Bo 16.4 % (11.5-14.5) H 10/04/23: Plt Count 201 K/uL (130-400) 10/04/23: MPV 8.2 fL (9.4-12.4) L 10/04/23: Immature Gran % (Auto) 0.3 % 10/04/23 21: Neut % (Auto) 60.2 % 10/04/23: Lymph % (Auto) 27.9 % 10/04/23: [place] % (Auto) 9.1 % 10/04/23: Eos % (Auto) 1.7 % 10/04/23: Baso % (Auto) 0.8 % 10/04/23: Neut # (Auto) 3.62 K/uL (1.40-6.50) 10/04/23: Lymph # (Auto) 1.68 K/uL (1.20-3.40) 10/04/23: [place] # (Auto) 0.55 K/uL (0.11-0.59) 10/04/23: Eos # (Auto) 0.10 K/uL (0.00-0.50) 10/04/23: Baso # (Auto) 0.05 K/uL (0.00-0.20) 10/04/23: Immature Gran # (Auto) 0.02 K/uL (0.01-0.20) 10/04/23 21:30 PT 11.6 Seconds (9.0-12.0) 10/05/23 00:39 INR 1.1 (0.9-1.1) 10/05/23 00:39 APTT 29 Seconds (21-31) 10/05/23 00:39 PTT Ratio 1.0 10/05/23 00:39 Sodium 134 mmol/L (136-145) L 10/04/23 21:30 Potassium 3.2 mmol/L (3.5-5.1) L 10/04/23 21:30 Chloride 93 mmol/L (98-107) L 10/04/23 21:30 Carbon Dioxide 32 mmol/L (21-32) 10/04/23 21:30 Anion Gap 9 (3-11) 10/04/23 21:30 BUN 17 mg/dl (6-23) 10/04/23 21:30 Creatinine 0.98 mg/dl (0.6-1.4) 10/04/23 21:30 Est Cr Clr Drug Dosing Not Reportable 10/04/23 21:30 Est GFR ( Amer) 96.7 ml/min 10/04/23 21:30 Est GFR (Non-Af Amer) 83.5 ml/min 10/04/23 21:30 BUN/Creatinine Ratio 17.3 (10-20) 10/04/23 21:30 Glucose 131 mg/dl (70-99(Fasting)) H 10/04/23 21:30 Lactate 1.4 mmol/L (0.4-2.0) 10/04/23 23:45 Calcium 8.5 mg/dl (8.6-10.3) L 10/04/23 21:30 Magnesium 1.7 mg/dl (1.7-2.4) 10/04/23 21:30 Total Bilirubin 1.0 mg/dl (0.2-1.0) 10/04/23 21:30 AST 29 U/L (13-39) 10/04/23 21:30 ALT 3 U/L (7-52) L 10/04/23 21:30 Alkaline Phosphatase 63 U/L (34-104) 10/04/23 21:30 Ammonia Cancelled 10/04/23 23:45 Troponin I High Sens 4.9 pg/ml (0-20) 10/04/23 21:30 B-Natriuretic Peptide 84 pg/ml (0-100) 10/04/23 23:45 Total Protein 7.4 gm/dl (6.0-8.3) 10/04/23 21:30 Albumin 3.1 gm/dl (3.4-5.0) L 10/04/23 21:30 Globulin 4.3 gm/dl (2.5-4.0) H 10/04/23 21:30 Albumin/Globulin Ratio 0.7 (0.9-2) L 10/04/23 21:30 Lipase 34 U/L (11-82) 10/04/23 21:30 Procalcitonin 0.18 ng/ml (0-0.5) 10/04/23 21:30 Urine Color Dark Yellow 10/05/23 02:15 Urine Appearance Clear (Clear) 10/05/23 02:15 Urine pH 5.0 (4.5-7.5) 10/05/23 02:15 Ur Specific [place] > 1.045 (1.000-1.030) H 10/05/23 02:15 Urine Protein Trace (Negative) H 10/05/23 02:15 Urine Glucose (UA) Negative (Negative) 10/05/23 02:15 Urine Ketones Negative (Negative) 10/05/23 02:15 Urine Blood Negative (Negative) 10/05/23 02:15 Urine Nitrite Negative (Negative) 10/05/23 02:15 Urine Bilirubin 1+ (Negative) H 10/05/23 02:15 Urine Urobilinogen Negative (Negative) 10/05/23 02:15 Ur Leukocyte Esterase Negative (Negative) 10/05/23 02:15 Urine WBC (Auto) 1-5 /hpf (0-5) 10/05/23 02:15 Urine RBC (Auto) 0-4 /hpf (0-4) 10/05/23 02:15 U Hyaline Cast (Auto) 5-10 /lpf (0-5) H 10/05/23 02:15 U Epithel Cells (Auto) 10-20 /lpf (0-5) H 10/05/23 02:15 Urine Bacteria (Auto) Negative (Negative) 10/05/23 02:15 Ethyl Alcohol mg/dL < 10.0 mg/dl (<10.0) 10/04/23 23:45 Impressions Abdomen/Pelvis CT 10/04/23 22:39 Exam(s): CT ABDOMEN + PELVIS With Contrast IV Amt: OPTIRAY 320 86ML EXAM: CT Abdomen and Pelvis With Intravenous Contrast CLINICAL HISTORY: abd pain, cirrhosis. TECHNIQUE: Axial computed tomography images of the abdomen and pelvis with intravenous contrast. CTDI is 14.7 mGy and DLP is 775.88 mGy-cm. Automated exposure control was utilized for the study. A dose lowering technique was utilized adhering to the principles of ALARA. CONTRAST: Patient received OPTIRAY 320 86ML of IV contrast COMPARISON: CT abdomen and pelvis without contrast dated 08/20/2023 FINDINGS: Lung bases: Unremarkable. No mass. No consolidation. ABDOMEN: Liver: Irregular contours to the liver anteriorly with the liver is smaller in size from the previous examination. There is a suggestion of a small recanalized paraumbilical vein. Gallbladder and bile ducts: Unremarkable. No calcified stones. No ductal dilation. Pancreas: Unremarkable. No mass. No ductal dilation. Spleen: Innumerable rounded appearing hypoattenuating areas throughout the spleen with splenomegaly. Adrenals: Unremarkable. No mass. Kidneys and ureters: Unremarkable. No solid mass. No hydronephrosis. Stomach and bowel: Varicosities noted in the gastroesophageal junction. No evidence for bowel obstruction. Evaluation of bowel mucosa is limited with extensive ascites. No obvious asymmetry. Similar left inguinal hernia containing infiltrating fluid. No bowel herniation. PELVIS: Appendix: No significant abnormality identified involving the appendix. Bladder: Unremarkable. No mass. Reproductive: Unremarkable as visualized. ABDOMEN and PELVIS: Intraperitoneal space: There is marked increase in volume in the previously noted ascites, now large volume filling and distending the abdomen and pelvis. No loculation. Bones/joints: No acute fracture. No dislocation. Soft tissues: Subcutaneous edema noted involving the proximal lower extremities and involving the dependent superficial soft tissues throughout the abdomen or pelvis. Vasculature: The splenic vein and portal veins are patent. The IVC is patent. Lymph nodes: Unremarkable. No enlarged lymph nodes. IMPRESSION: 1. There is marked increase in volume in the previously noted ascites, now large volume filling and distending the abdomen and pelvis. No loculation. 2. Irregular contours to the liver anteriorly with the liver is smaller in size from the previous examination. There is a suggestion of a small recanalized paraumbilical vein. Findings are consistent with cirrhosis. 3. Innumerable rounded appearing hypoattenuating areas throughout the spleen with splenomegaly. Differential consideration includes lymphoma, metastatic disease, infection, sarcoid or less likely developing cystic changes. 4. Subcutaneous edema noted involving the proximal lower extremities and involving the dependent superficial soft tissues throughout the abdomen or pelvis. Findings are most consistent with anasarca. Electronically signed by: Arnaud Cheng MD 10/05/23 01:31 AM Code Status & VTE Plan VTE Prophylaxis Plan VTE Prophylaxis will be ordered: Yes PG Care Time/CCT Total # of Minutes Spent Total Time Spent with Patient: Total time spent is greater than 50% in coordination of care (as documented) at patient's floor/unit and/or counseling patient: Coding Level of Care Code 58039 INT INP/OBS CARE 2/55MIN Diagnoses Cirrhosis K70.31 Ascites presence: with ascites Hepatic cirrhosis type: alcoholic cirrhosis Hypothyroid E03.9 Ulcerative colitis K51.90 (1) Cirrhosis Ascites presence: with ascites Hepatic cirrhosis type: alcoholic cirrhosis Qualified Code(s): K70.31 - Alcoholic cirrhosis of liver with ascites
[2023-10-05] MEDS ORDERED: POTASSIUM CHLORIDE 10 MEQ TABCR PO STA (04:07)
[2023-10-05] MEDS ORDERED: LOPERAMIDE HCL 2 MG CAP PO PRN (04:07)
[2023-10-05] MEDS: Patient's HEIGHT &/or WEIGHT Needed SCH ×3 (04:19→04:29)
[2023-10-05] MEDS: MAGNESIUM SULFATE / D5W 1 GM/100 ML BAG IV SCH ×2 (04:50→09:50)
[2023-10-05] MEDS ORDERED: LEVOTHYROXINE SODIUM 75 MCG TABLET PO SCH (06:30)
--- NOTE | 2023-10-05 07:12 | XRay Report ---
SINGLE VIEW CHEST CLINICAL HISTORY: Generalized abdominal pain. FINDINGS: A PA chest radiograph is compared to study dated 08/19/2023. The cardiomediastinal silhouet te is unremarkable. There is bibasilar atelectasis. No airspace consolidation or large pleural effusi ons identified. No pneumothorax is seen. The skeletal structures are osteopenic. There are chronic/he aled right-sided rib fractures. IMPRESSION: No acute cardiopulmonary abnormality is identified. ACT 112: Negative or not required by law. Electronically signed by: Andriy Villarreal M.D. 10/05/2023 7:10 AM
[2023-10-05 07:32] LABS: Thyroid Stimulating Hormone 45.387 uIu/ml (0.300-4.500)
[2023-10-05 08:07] LABS: T4 Free Thyroxine 0.93 ng/dl (0.61-1.60)
--- NOTE | 2023-10-05 09:16 | Electrocardiogram Report ---
Test Reason : Blood Pressure : / mmHG Vent. Rate : 072 BPM Atrial Rate : 072 BPM P-R Int : 110 ms QRS Dur : 088 ms QT Int : 444 ms P-R-T Axes : 049 031 -40 degrees QTc Int : 486 ms Sinus rhythm with short MN Diffuse Minor Nonspecific ST and T wave abnormality Prolonged QT Abnormal ECG When compared with ECG of 22-AUG-2023 06:18, No significant change was found Confirmed by Greg Domingo ([id number]) on 10/05/2023 9:15:58 AM Referred By: REFERRED SELF Confirmed By:Greg Domingo
[2023-10-05] MEDS: FOLIC ACID 1 MG TAB PO SCH (09:45)
[2023-10-05] MEDS: THIAMINE HCL 100 MG TAB PO SCH (09:45)
[2023-10-05] MEDS: FUROSEMIDE 40 MG TAB PO SCH (09:45)
[2023-10-05] MEDS: SPIRONOLACTONE 100 MG TAB PO SCH (09:46)
[2023-10-05] MEDS: SERTRALINE HCL 50 MG TABLET PO SCH (09:46)
[2023-10-05 11:27] LABS: Albumin Level 2.7 gm/dl (3.4-5.0); Bilirubin,Total 0.7 mg/dl (0.2-1.0); Calcium 8.2 mg/dl (8.6-10.3)
[2023-10-05 11:33] LABS: Albumin Globulin Ratio 0.7 (0.9-2); BUN Creatinine Ratio 18.1 (10-20); Creatinine Clr Calc Pharmacy 72.9 ml/min; Est GFR (African American) 110.8 ml/min; Est GFR (Non-African American) 95.6 ml/min; Globulin 3.8 gm/dl (2.5-4.0); Total Protein 6.5 gm/dl (6.0-8.3)
--- NOTE | 2023-10-05 13:37 | Gastrointestinal Consultation ---
Date of Consultation October 05, 2023 Assessment & Plan (1) Abnormal CT of the abdomen: (2) Splenic mass: (3) Abdominal pain, acute: (4) Cirrhosis: (5) Abdominal ascites: Agree with adding Spironolactone 100 mg by mouth daily in addition to Furosemide 40 mg by mouth daily Recommend monitoring kidney function Agree with Paracentesis with fluid studies. Recommend adding Ascitic fluid protein to his studies in addition to albumin, C+S, cytology, cell count with diff, and glucose Continue to cover with Ceftriaxone 1 g daily (6) Ulcerative colitis: Continue Balsalazide 2.25 g by mouth TID F/U with [facility] for chronic disease management as outpatient. History of Present Illness Reason for Consultation: Cirrhosis with worsening ascites Attending Physician: Yaquelin Cano MD History of Present Illness 58 yo CM with a PMHx of UC, alcohol abuse, and questionable alcohol versus autoimmune induced cirrhosis, who presented to the ER last night with complaints of increasing abdominal girth and abdominal pain. He states that his abdomen has gotten progressively bigger and more tense over the past week. He was admitted to [facility] in August, at which time he was first told of his cirrhosis. He was taking Furosemide 40 mg by mouth daily at home, but denies being on Aldactone. He states that he has never had any history of undergoing a paracentesis. He states that he is not able to eat due to his abdominal pressure from his ascites. He denies any fevers, chills, nausea, vomiting, hematemesis, melena, or hematochezia. He states that his UC is under good control on Balsalazide, however, he cannot tell me the date of his last colonoscopy with [facility]. A CT scan in the ER showed increased ascites as compared to the previous imaging study. He was also noted to have multiple splenic lesions of unknown etiology. He was given IV Abx in the ER, and has a paracentesis ordered. He denies any further complaints at present. Allergies Allergy/AdvReac Type Severity Reaction Status Date / Time amoxicillin Allergy Intermediate Rash Verified 10/04/23 23:30 Home Medications Medication Instructions Recorded Confirmed Type balsalazide 750 mg capsule 2,250 mg PO TID 08/08/23 10/04/23 History levothyroxine 75 mcg tablet 75 mcg PO DAILYBB 08/08/23 10/04/23 History loperamide 2 mg capsule 2 mg PO TID PRN Diarrhea 08/08/23 10/04/23 History folic acid 1 mg tablet 1 mg PO DAILY #30 tabs 08/23/23 10/04/23 Rx thiamine HCl (vitamin B1) 100 mg 100 mg PO DAILY #30 tabs 08/23/23 10/04/23 Rx tablet furosemide 40 mg tablet 40 mg PO QAM 09/03/23 10/04/23 History sertraline 50 mg tablet 50 mg PO DAILY #90 tabs 09/03/23 10/04/23 Rx trazodone 50 mg tablet 50 mg PO HS 10/04/23 10/04/23 History Patient History Medical History Recurrent falls Alcohol abuse In remission. Last drink 07/2023 Cirrhosis Low back pain ONGOING SINCE A FALL (REMOTE HX) Anxiety Ulcerative colitis Hypothyroid Surgical History History of colonoscopy History of hand surgery FINGER AMPUTATED D/T INJURY , LEFT INDEX Family History Mother Family history of diabetes mellitus Denies family history of Prostate cancer Breast cancer Colorectal cancer Social History Smoking Status: Never smoker Tobacco Type: Cigarettes Do You Dip or Chew Tobacco: No; Hx Alcohol Use: Yes Alcohol type: beer and hard liquor Hx Substance Use: No Preferred Language: Kazakh Communication Ability: Effective Tip Out Worker Required: No Beliefs That Will Affect Care: None marital status: Current Living Situation: Family Current Living Situation Comment: lives with and son Other Information That Helps Us Care for You: No Feels Safe at Home: Yes Safety Concerns: Feels Safe At This Time Diet: low salt caffeine: Yes Dental Care, Regularly: No Physical Activity Frequency: Daily Seatbelt Use: always Sunscreen Use: No Assistive Devices: Denture - Upper, Denture - Lower and Hearing Aid - Bilateral Review of Systems Review of Systems: All systems reviewed & are unremarkable except as noted in Subjective Physical Exam Constitutional: WD/WN, vitals as above Chronic ill-appearing Respiratory: normal respiratory effort, lungs clear to auscultation Cardiovascular: RRR, no murmur, no edema Gastrointestinal (Abdomen): Inspection/Auscultation: + abdomen distended Percussion/Palpation: + abdomen tender, + ascites and + fluid wave; no guarding and abdomen not rigid Skin: no rashes, warm and dry Psychiatric: A+Ox3, euthymic affect Results & Data Vital Signs (Past 12 Hours) Vital Signs Temp Pulse Pulse Resp BP BP BP 10/05/23 08:08 36.8 C 69 18 100/66 10/05/23 05:04 10/05/23 05:04 36.8 C 77 16 117/73 10/05/23 03:26 69 10/05/23 03:00 67 12 10/05/23 02:33 69 16 121/78 10/05/23 02:14 36.6 C 10/05/23 02:00 71 17 107/79 10/05/23 01:30 72 14 107/76 Pulse Ox O2 Del Method 10/05/23 08:08 94 Room Air 10/05/23 05:04 Room Air 10/05/23 05:04 95 Room Air 10/05/23 03:26 10/05/23 03:00 95 Room Air 10/05/23 02:33 95 Room Air 10/05/23 02:14 10/05/23 02:00 93 Room Air 10/05/23 01:30 95 Room Air PG Care Time/CCT Total # of Minutes Spent Total Time Spent with Patient: Total time spent is greater than 50% in coordination of care (as documented) at patient's floor/unit and/or counseling patient: Coding Level of Care Code 02147 IN/OBS CONSULT LVL 4,60M Diagnoses Abnormal CT of the abdomen R93.5 Splenic mass R16.1 Abdominal pain, acute R10.9 Cirrhosis K70.31 Ascites presence: with ascites Hepatic cirrhosis type: alcoholic cirrhosis Abdominal ascites R18.8 Ulcerative colitis K51.90 (4) Cirrhosis Ascites presence: with ascites Hepatic cirrhosis type: alcoholic cirrhosis Q ualified Code(s): K70.31 - Alcoholic cirrhosis of liver with ascites
[2023-10-05] MEDS ORDERED: POTASSIUM CHLORIDE CRTAB 20 MEQ TABCR PO STA (14:12)
--- NOTE | 2023-10-05 15:32 | History & Physical Bridge Note ---
Date of Service October 05, 2023 History & Physical Bridge Note I have examined the patient, reviewed the History & Physical and in the interval since the performance of the History & Physical I have noted the following changes of clinical significance: Pt continues to have some abd distension but not severe pain. Having a hard time eating despite being hungry because abdomen is full. Is making more urine today with the addition of the aldactone. leg swellng has gone way down since starting lasix as per . No fevers/chills. Is moving bowels 1-2 times per day, no blood. No SOB or CP. COntinue diuresis, replace K+, monitor BMP, magnesium, LFTs, await paracentesis when IR available on Friday Continue empiric ctx although does not seem consistent with SBP Needs f/u with GI/Hepatology after discharge Increase LT4 dose to 100 mcg-likely not absorbing LT4 due to gut wall edema- diuresis should help this as well. f/u TSH in 4-6 weeks
[2023-10-05] MEDS: ACETAMINOPHEN 325 MG TAB PO PRN (20:33)
[2023-10-05] MEDS: traZODone HCL 50 MG TAB PO SCH (20:33)
[2023-10-05] MEDS: cefTRIAXone SODIUM 1,000 MG in DEXTROSE 5 % MINI-B 50 ML IV SCH (23:46)
[2023-10-06] MEDS: LEVOTHYROXINE SODIUM 100 MCG TABLET PO SCH (06:01)
[2023-10-06 07:27] LABS: Basophils # (auto) 0.05 K/uL (0.00-0.20); Eosinophils # (auto) 0.16 K/uL (0.00-0.50); Eosinophils % (auto) 3.3 %; Hematocrit (blood only) 27.6 % (42.0-52.0); Hemoglobin 9.2 g/dl (14.0-18.0); Immature Granulocytes # (auto) 0.02 K/uL (0.01-0.20); Immature Granulocytes % (auto) 0.4 %; Lymphocytes # (auto) 1.54 K/uL (1.20-3.40); Lymphocytes % (auto) 31.5 %; Mean Corpuscular Hemoglobin 30.4 pg (25.0-34.0); Mean Corpuscular Hgb Conc 33.3 g/dL (32.0-36.0); Mean Corpuscular Volume 91.1 fL (80.0-100.0); Mean Platelet Volume 8.1 fL (9.4-12.4); Monocytes # (auto) 0.49 K/uL (0.11-0.59); Neutrophils # (auto) 2.63 K/uL (1.40-6.50); Neutrophils % (auto) 53.8 %; Platelet Count 178 K/uL (130-400); RDW Coefficient of Variation 16.1 % (11.5-14.5); RDW Standard Deviation 53.9 fL (36.4-46.3); Red Blood Count 3.03 M/uL (4.70-6.10); White Blood Count 4.89 K/ul (4.8-10.8)
[2023-10-06 07:45] LABS: Albumin Level 2.6 gm/dl (3.4-5.0); BUN Creatinine Ratio 14.1 (10-20); Bilirubin Direct 0.3 mg/dl (0-0.2); Bilirubin,Total 0.9 mg/dl (0.2-1.0); Calcium 8.1 mg/dl (8.6-10.3); Creatinine Clr Calc Pharmacy 61.1 ml/min; Est GFR (African American) 95.5 ml/min; Est GFR (Non-African American) 82.4 ml/min; Potassium 3.6 mmol/L (3.5-5.1); Total Protein 6.3 gm/dl (6.0-8.3)
[2023-10-06] MEDS: FOLIC ACID 1 MG TAB PO SCH (07:47)
[2023-10-06] MEDS: THIAMINE HCL 100 MG TAB PO SCH (07:48)
[2023-10-06] MEDS: SERTRALINE HCL 50 MG TABLET PO SCH (07:48)
[2023-10-06] MEDS: FUROSEMIDE 40 MG TAB PO SCH (07:48)
[2023-10-06] MEDS: SPIRONOLACTONE 100 MG TAB PO SCH (07:48)
--- NOTE | 2023-10-06 13:50 | Hospitalist Progress Note ---
Date of Service October 06, 2023 Assessment & Plan (1) Cirrhosis: Plan: 58yo male with worsening ascites with recent new diagnosis of cirrhosis. 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 Patient with history of UC which can be associated with AIH, although rarely. Patient does not drink alcohol anymore for the last 2 months. His LFTs, platelet count, and INR are normal. Albumin of 3.1. New splenic lesions noted on CT. Question new malignant process? Could also be splenic infarctions in setting of portal hypertension? He was given IVF during his last hospitalization for treatment of DANI - could be contributing to his current ascites. Admitted for diuresis and paracentesis-awaiting IR to return on 09/06 for paracentesis No significant abdominal pain, no fevers or chills-less likely SBP but covering empirically with ceftriaxone -Check AFP (no liver lesion noted, however)-pending -Start IV albumin tomorrow with paracentesis -Continue diuresis with Lasix 40mg po daily and added spironolactone 100 mg daily -Cautious with fluid removal + diuresis as patient did recently present with DANI-renal function stable -Low-sodium diet, fluid restriction for now to 1800 mL -GI Consultation appreciated -Continue Ceftriaxone 2gm IV daily for now -Needs follow-up with hepatology after discharge -Moving bowels regularly, no signs of hepatic encephalopathy (2) Hypothyroid: Plan: Chronic. Elevated TSH at last visit at 9.846 with low T4 of 0.45 and now TSH is up to 45 -Most likely with gut wall edema not absorbing levothyroxine -Continue Synthroid but increase dose to 100 mcg daily -Follow TSH in 4 weeks (3) Ulcerative colitis: Plan: Chronic. Stable -Continue Balsalazide -Patient will need to bring his medication from home (4) Splenic mass: Plan: As above, unclear cause. Other than anemia, no evidence of abnormal CBC Follow-up with hematology Check JULIANNA level (5) Alcohol abuse: Plan: Previous and now has stopped drinking with diagnosis of cirrhosis Encourage cessation (6) Anemia: Plan: Hemoglobin low at 9.2, no gross bleeding, normocytic Check iron studies, B12, folate, and Hemoccult stool TSH elevated as above at 45 which could be contributing Plan DVT prophylaxis-hold chemical prophylaxis for paracentesis Disposition-continued stay but patient anxious to go home tomorrow after paracentesis Admission and Anticipated Discharge Date Admission Date: October 05, 2023 Subjective Patient reports abdominal distention but no significant abdominal pain. He was able to eat more today. He is making urine, moving bowels regularly. Physical Exam Constitutional: WD/WN, vitals as above Respiratory: normal respiratory effort, lungs clear to auscultation Cardiovascular: RRR, no murmur, no edema Gastrointestinal (Abdomen): Inspection/Auscultation: + abdomen distended and normal bowel sounds Percussion/Palpation: abdomen soft and + ascites; abdomen nontender and no hernia Musculoskeletal: no cyanosis or clubbing, extremities motor strength 5/5 Skin: no rashes, warm and dry Psychiatric: A+Ox3, euthymic affect Results & Data Results & Data Vital Signs (Past 12 Hours) Vital Signs Temp Pulse Resp BP Pulse Ox O2 Del Method 10/06/23 08:32 36.6 C 70 18 104/73 94 Room Air 10/06/23 07:20 Room Air Laboratory Results CBC, BMP, magnesium, blood cultures reviewed PG Care Time/CCT Total # of Minutes Spent Total Time Spent with Patient: Total time spent is greater than 50% in coordination of care (as documented) at patient's floor/unit and/or counseling patient: Coding Level of Care Code 34977 SUB INP/OBS CARE 3/50MIN Diagnoses Cirrhosis K70.31 Ascites presence: with ascites Hepatic cirrhosis type: alcoholic cirrhosis Hypothyroid E03.9 Ulcerative colitis K51.90 Splenic mass R16.1 Alcohol abuse F10.10 Anemia D64.9 (1) Cirrhosis Ascites presence: with ascites Hepatic cirrhosis type: alcoholic cirrhosis Qualified Code(s): K70.31 - Alcoholic cirrhosis of liver with ascites
[2023-10-06] MEDS: traZODone HCL 50 MG TAB PO SCH (19:53)
[2023-10-06] MEDS: ACETAMINOPHEN 325 MG TAB PO PRN (19:55)
[2023-10-07] MEDS: cefTRIAXone SODIUM 1,000 MG in DEXTROSE 5 % MINI-B 50 ML IV SCH (00:35)
[2023-10-07] MEDS ORDERED: MELATONIN 3 MG TAB PO STA (03:19)
[2023-10-07] MEDS: ALBUMIN 25% 25 GM/100 ML VIAL IV SCH ×2 (06:23→13:14)
[2023-10-07] MEDS: LEVOTHYROXINE SODIUM 100 MCG TABLET PO SCH (06:23)
[2023-10-07] MEDS: SPIRONOLACTONE 100 MG TAB PO SCH (07:25)
[2023-10-07] MEDS: FOLIC ACID 1 MG TAB PO SCH (07:25)
[2023-10-07] MEDS: THIAMINE HCL 100 MG TAB PO SCH (07:25)
[2023-10-07] MEDS: FUROSEMIDE 40 MG TAB PO SCH (07:26)
[2023-10-07] MEDS: SERTRALINE HCL 50 MG TABLET PO SCH (07:26)
--- NOTE | 2023-10-07 08:37 | Gastroenterology Progress Note ---
Date of Service October 07, 2023 Assessment & Plan (1) Cirrhosis: Plan: 58 year old male with UC on Balsalazide admitted with volume overload/ascites related to his liver disease. He is scheduled for a paracentesis today. NPO for paracentesis Should send fluid studies, cultures. Low NA diet discussed - Check how much sodium is in propel/sports drinks he is using at home as well Can continue Spironolactone 100 mg by mouth daily and Furosemide 40 mg by mouth daily Recommend monitoring kidney function Continue to cover with Ceftriaxone 1 g daily needs hematology evaluation for splenic mass Recall as needed. Thank you for allowing us to participate in the care of this patient. Please call with any acute changes, questions or concerns. Please see addendum below with additional recommendation from my supervising physician. Admission and Anticipated Discharge Date Admission Date: October 05, 2023 Supervising Physician Co-Signing Physician Notes I performed a history and physical examination of the patient today, including specifically on physical exam - soft abdomen. I have discussed the patient's management with the advanced practitioner. Please refer to the nurse practitioner's note for the documented findings and plan of care. Feels better after LVP. Continue diuretics. Low salt diet. F/U as OP in Hepatology clinic. Recall GI if needed. Subjective Wants to go home. Awaiting paracentesis today. Received IV Albumin. Remains on Lasix 40, aldactone 100. No lower extremity edema. Tolerating PO intake. Denies nausea, vomiting. No black/bloody stools reported. Review of Systems Review of Systems: All systems reviewed & are unremarkable except as noted in HPI & below Physical Exam Constitutional: WD/WN, vitals as above Thin male, resting in bed, in no acute distress Respiratory: normal respiratory effort, lungs clear to auscultation Cardiovascular: Rate/Rhythm: regular rate and regular rhythm Gastrointestinal (Abdomen): + ascites No pain with palpation, no rebound/guarding Skin: no rashes, warm and dry Results & Data Vital Signs (Past 12 Hours) Vital Signs Temp Pulse Resp BP Pulse Ox O2 Del Method 10/07/23 08:15 36.5 C 62 16 103/69 93 Room Air 10/07/23 06:08 36.5 C 66 18 108/65 95 Room Air 10/06/23 20:41 36.6 C 51 L 20 111/77 96 Room Air 10/06/23 20:40 Room Air Laboratory Results 10/06/23 Range/Units 16:30 Stool Occult Bld Scrn Negative (Negative) (1) Cirrhosis Ascites presence: with ascites Hepatic cirrhosis type: alcoholic cirrhosis Qualified Code(s): K70.31 - Alcoholic cirrhosis of liver with ascites
[2023-10-07 09:29] LABS: Basophils # (auto) 0.04 K/uL (0.00-0.20); Basophils % (auto) 0.8 %; Eosinophils # (auto) 0.09 K/uL (0.00-0.50); Eosinophils % (auto) 1.8 %; Hematocrit (blood only) 29.2 % (42.0-52.0); Hemoglobin 9.4 g/dl (14.0-18.0); Immature Granulocytes # (auto) 0.01 K/uL (0.01-0.20); Immature Granulocytes % (auto) 0.2 %; Lymphocytes % (auto) 24.5 %; Mean Corpuscular Hemoglobin 29.6 pg (25.0-34.0); Mean Corpuscular Hgb Conc 32.2 g/dL (32.0-36.0); Mean Corpuscular Volume 91.8 fL (80.0-100.0); Mean Platelet Volume 8.1 fL (9.4-12.4); Monocytes # (auto) 0.46 K/uL (0.11-0.59); Monocytes % (auto) 9.4 %; Neutrophils % (auto) 63.3 %; Platelet Count 183 K/uL (130-400); RDW Coefficient of Variation 15.8 % (11.5-14.5); Red Blood Count 3.18 M/uL (4.70-6.10)
[2023-10-07 09:49] LABS: Albumin Globulin Ratio 0.9 (0.9-2); Albumin Level 3.2 gm/dl (3.4-5.0); BUN Creatinine Ratio 14.3 (10-20); Bilirubin,Total 1.2 mg/dl (0.2-1.0); Calcium 8.5 mg/dl (8.6-10.3); Est GFR (African American) 96.7 ml/min; Est GFR (Non-African American) 83.5 ml/min; Globulin 3.6 gm/dl (2.5-4.0); Magnesium 1.9 mg/dl (1.7-2.4); Potassium 3.5 mmol/L (3.5-5.1); Total Protein 6.8 gm/dl (6.0-8.3)
[2023-10-07 10:11] LABS: Folate (Folic Acid),Ser orPlas > 22.30 ng/ml (>5.38)
[2023-10-07 10:12] LABS: Vitamin B12 630 pg/ml (180-914)
--- NOTE | 2023-10-07 12:25 | Ultrasound Report ---
ULTRASOUND-GUIDED PARACENTESIS CLINICAL HISTORY: Ascites PROCEDURE: Procedure and risks were explained. Informed consent was obtained. A final timeout was com pleted. The abdomen was prepped and draped in sterile fashion. 1% buffered lidocaine was utilized for skin anesthesia. Utilizing ultrasound guidance, a 5 Frisian safety centesis catheter was advanced into the left lower q uadrant pocket of ascites. Ultrasound images were obtained. A total of 5 L of ascites fluid was remov ed, with 1 L sent to the lab for analysis. The catheter was removed and Band-Aid applied. The patient tolerated the procedure well. Vital signs will be monitored prior to discharge. IMPRESSION: Ultrasound-guided paracentesis as above. Performed, dictated, and signed by Arnaud Kelley PA-C; to be co-signed by Dr. Douglas Lyn. Electronically signed by: Douglas Lyn M.D. 10/07/2023 3:03 PM
[2023-10-07 13:24] LABS: Albumin Peritoneal Fluid < 1.5 gm/dl
[2023-10-07 13:30] LABS: Glucose Peritoneal Fluid 107 mg/dl; Total Protein Peritoneal Fluid < 3.0 gm/dl
[2023-10-07 15:00] LABS: Appearance Peritoneal Fluid Slightly Hazy; Color Peritoneal Fluid Pale Yellow; Eosinophils, Fluid 2 %; Lymphocytes, Fluid 84 %; Mono,Macrophage,Mesothelial 12 %; Neutrophils, Fluid 2 %; RBC Peritoneal Fluid Auto < 2000 /uL; WBC Peritoneal Fluid Auto 313 /ul (0-300)
--- NOTE | 2023-10-07 16:46 | Discharge Summary ---
Discharge Summary Date of Service October 07, 2023 Admission HPI Per Admitting Provider Gary Sandoval is a 58yo male with history of ulcerative colitis, hypothyroidism, former EtOH use. He was admitted to [facility] on 08/20/23 - 08/23/23 after presenting with poor appetite and weakness. He was found to have elevated LFTs. Patient had a CT of the Abdomen performed on 08/19/23 which revealed hepatosplenomegaly with hepatic steatosis and probable cirrhosis. Moderate abdominopelvic ascites with anasarca. Patient was treated with IVF with improvement in his renal function (5.38 on arrival --> 1.6 on day of discharge). He was evaluated by GI for his newly discovered hepatosplenomegaly. His workup thus far with: Elevated Ferritin at 832.5 on 08/20/23 POSITIVE Smooth Muscle antibody titer at 1:20 POSITIVE CMV IgG >10 POSITIVE EBV Capsid Ag IgG Ab at 569 Remainder of acute hepatitis panel unremarkable. Patient was discharged home and instructed to follow up with GI. He returns today due to progression of abdominal ascites, pain and distention. He has never had a paracentesis. He has a prescription for Lasix 40mg po daily that seems to have been started in late August by [facility] but patient is not sure if he is taking this medicine. He denies melena, hematochezia, hematemesis. No nausea, vomiting, diarrhea or constipation. No cough or SOB. No fevers or chills. No icterus or jaundice. Denies confusion. He has not had any alcohol since July 2023. Has had 20-25# of unintentional weight loss In the ER he is afebrile, HD stable ER Course: Ceftriaxone 2gm IV Principal Dx & Hospital Course #1 = Principal Diagnosis (1) Cirrhosis: 58yo male with worsening ascites with recent new diagnosis of cirrhosis. 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 Patient with history of UC which can be associated with AIH, although rarely. Patient does not drink alcohol anymore for the last 2 months. His LFTs, platelet count, and INR are normal. Albumin of 3.1. New splenic lesions noted on CT. Question new malignant process? Could also be splenic infarctions in setting of portal hypertension? He was given IVF during his last hospitalization for treatment of DANI - could be contributing to his current ascites. Admitted for diuresis and paracentesis-awaiting IR to return on 09/06 for paracentesis No significant abdominal pain, no fevers or chills-less likely SBP but covering empirically with ceftriaxone -Check AFP (no liver lesion noted, however)-pending -Start IV albumin tomorrow with paracentesis -Continue diuresis with Lasix 40mg po daily and added spironolactone 100 mg daily -Cautious with fluid removal + diuresis as patient did recently present with DANI-renal function stable -Low-sodium diet, fluid restriction for now to 1800 mL -GI Consultation appreciated -Continue Ceftriaxone 2gm IV daily for now -Needs follow-up with hepatology after discharge -Moving bowels regularly, no signs of hepatic encephalopathy (2) Hypothyroid: Chronic. Elevated TSH at last visit at 9.846 with low T4 of 0.45 and now TSH is up to 45 -Most likely with gut wall edema not absorbing levothyroxine -Continue Synthroid but increase dose to 100 mcg daily -Follow TSH in 4 weeks (3) Ulcerative colitis: Chronic. Stable -Continue Balsalazide -Patient will need to bring his medication from home (4) Splenic mass: As above, unclear cause. Other than anemia, no evidence of abnormal CBC Follow-up with hematology Check JULIANNA level (5) Alcohol abuse: Previous and now has stopped drinking with diagnosis of cirrhosis Encourage cessation (6) Anemia: Hemoglobin low at 9.2, no gross bleeding, normocytic Check iron studies, B12, folate, and Hemoccult stool TSH elevated as above at 45 which could be contributing Plan DVT prophylaxis-hold chemical prophylaxis for paracentesis Disposition-continued stay but patient anxious to go home tomorrow after para centesis Discharge Exam Constitutional WD/WN, vitals as above Respiratory normal respiratory effort, lungs clear to auscultation Cardiovascular RRR, no murmur, no edema Gastrointestinal (Abdomen) Inspection/Auscultation: normal bowel sounds Percussion/Palpation: abdomen soft; abdomen nontender and no hernia Musculoskeletal no cyanosis or clubbing, extremities motor strength 5/5 Skin no rashes, warm and dry Psychiatric A+Ox3, euthymic affect Updated Medication List Medication Instructions Recorded Confirmed Type balsalazide 750 mg capsule 2,250 mg PO TID 08/08/23 10/04/23 History levothyroxine 75 mcg tablet 75 mcg PO DAILYBB 08/08/23 10/04/23 History loperamide 2 mg capsule 2 mg PO TID PRN Diarrhea 08/08/23 10/04/23 History folic acid 1 mg tablet 1 mg PO DAILY #30 tabs 08/23/23 10/04/23 Rx thiamine HCl (vitamin B1) 100 mg 100 mg PO DAILY #30 tabs 08/23/23 10/04/23 Rx tablet furosemide 40 mg tablet 40 mg PO QAM 09/03/23 10/04/23 History sertraline 50 mg tablet 50 mg PO DAILY #90 tabs 09/03/23 10/04/23 Rx trazodone 50 mg tablet 50 mg PO HS 10/04/23 10/04/23 History ciprofloxacin HCl 500 mg tablet 500 mg PO BID #6 tabs 10/07/23 Rx (Cipro) levothyroxine 100 mcg tablet 100 mcg PO DAILYBB #30 tabs 10/07/23 Rx (Synthroid) spironolactone 100 mg tablet 100 mg PO QAM #30 tabs 10/07/23 Rx Hospital Stay Data Consultations 10/05/23 01:59 ED Decision to Admit Stat 10/05/23 02:51 Consult Gastroenterology Routine Diagnostic Imagining Performed 10/04/23 22:39 CT Abd and Pelvis [CT abd pelvis IV con only] Stat 10/07/23 04:07 IR paracentesis abd w/img US Routine Pending Results Patient Have Any Pending Studies at Discharge: Yes (ascites fluid culture, JULIANNA level, final blood cultures) Discharge Instructions Given to Patient (Per Discharging Provider) You were admitted with fluid in your abdomen called ascites that comes from having cirrhosis of the liver. This was drained and you were started on a second water pill to keep the fluid off. Please finish out 3 more days of the antibiotic pill called Cipro. You will need close follow up with GI and your PCP. You should have blood work to check your kidney function, potassium, and sodium levels within 1 week. You were found to have some spots on your spleen that need further evaluation. A referral to a [facility] will be arranged for you. Your thyroid function was quite low and your levothyroxine dose was increased to 100 mcg daily. Please have your PCP check your thyroid function again in about 4 weeks. Coding Diagnoses Cirrhosis K70.31 Ascites presence: with ascites Hepatic cirrhosis type: alcoholic cirrhosis Hypothyroid E03.9 Ulcerative colitis K51.90 Splenic mass R16.1 Alcohol abuse F10.10 Anemia D64.9
== END 2023-10-07 17:24 | disposition home or self-care (01) | DRG 433 ==
LOC: ED 20:30 → INTOOBSV 10-05 02:51 → SUATTDRO 10-05 02:51 → 3W 10-05 02:51